=== PATIENT | male | born 1945 | race Caucasian/White ===

== ENCOUNTER 2016-04-09 13:39 | Inpatient (IN) | payer OTHER ==
[~2016-04-09] VITALS: Ht 175.3 cm; Wt 64.5 kg
[2016-04-09 15:14] LABS: BASO % 0.2 %; BASO ABS # 0.02 K/uL (0-0.2); COMPLETE YES; EOS % 0.8 %; HEMATOCRIT 44.1 % (42-52); IG% 0.2 %; LYMPH % 14.8 %; LYMPH ABS # 1.81 K/uL (1.2-3.4); MEAN CELL VOLUME 88.6 fL (80-100); MEAN CORPUSCULAR HEMOGLOBIN 28.3 pg (25-34); MEAN PLATELET VOLUME 9.6 fL (7.4-10.4); MONO % 9.2 %; NEUT % 74.8 %; PLATELET COUNT 229 K/uL (130-400); RED BLOOD COUNT 4.98 M/uL (4.7-6.1); WHITE BLOOD COUNT 12.21 K/uL (4.8-10.8)
[2016-04-09 15:32] LABS: BLOOD UREA NITROGEN 11 mg/dl (7-18); BUN/CREATININE RATIO 21.5 (10-20); CALCIUM 8.5 mg/dl (8.5-10.1); CARBON DIOXIDE 34 mmol/L (21-32); CHLORIDE 102 mmol/L (98-107); CREATININE 0.52 mg/dl (0.60-1.40); GLUCOSE 93 mg/dl (70-99); POTASSIUM 4.1 mmol/L (3.5-5.1); SODIUM 141 mmol/L (136-145)
[2016-04-09] MEDS ORDERED: ADVIN50/60 INH (15:39)
[2016-04-09] MEDS ORDERED: SPRIN/30 INH (15:39)
[2016-04-09] MEDS ORDERED: PRVHFAIN PO (15:39)
--- NOTE | 2016-04-09 15:45 | DIAGNOSTIC IMAGING REPORT ---
SINGLE VIEW PELVIS; 2 VIEWS RIGHT HIP CLINICAL HISTORY: Right hip pain. Fall. FINDINGS: An AP pelvic radiograph with AP and frog-leg views of the right hip are obtained. No prior studies are available for comparison at the time of dictation. The skeletal structures are osteopenic. There is no radiographic evidence of fracture in the hips or bony pelvis. Mild arthritic change and joint space narrowing is present in the hips bilaterally. Mild lumbosacral spondylosis is partially imaged. The sacroiliac joints are grossly normal. Soft tissue contusion/edema is present in the right upper thigh. There is mild atherosclerotic calcification of the femoral arteries. There is a nonobstructed abdominal bowel gas pattern. IMPRESSION: 1. There is no radiographic evidence of fracture involving the hips or bony pelvis. 2. Soft tissue contusion is present in the right upper thigh. 3. Osteopenia and mild degenerative change as above. Electronically signed by: Harjinder Yuen M.D. 04/09/2016 3:43 PM
[2016-04-09] MEDS ORDERED: OPTIRAY 320 IV PRN (16:15)
--- NOTE | 2016-04-09 16:21 | DIAGNOSTIC IMAGING REPORT ---
CHEST ONE VIEW PORTABLE CLINICAL HISTORY: Trauma. Hypoxia. COMPARISON STUDY: 10/02/2014 FINDINGS: The heart is normal in size. There is no lobar consolidation. There is slight prominence of the pulmonary vasculature interstitium. An element of mild pulmonary vascular congestion/fluid overload cannot be excluded. There are no pleural effusions.[ IMPRESSION: Subtle vascular and interstitial prominence. This may indicate mild pulmonary congestion/fluid overload. There is no focal pulmonary consolidation Electronically signed by: Segundo Murdock M.D. 04/09/2016 4:20 PM
[2016-04-09 16:25] LABS: ALKALINE PHOSPHATASE 102 U/L (45-117); ALT/SGPT < 6 U/L (12-78); AST/SGOT 17 U/L (15-37)
[2016-04-09] MEDS ORDERED: ALBUTEROL 0.083% NEBU SOLN 3 ML VIAL INH STA (16:39)
[2016-04-09] MEDS ORDERED: METHYLPREDNISOLONE 125 MG VIAL IV STA (17:30)
--- NOTE | 2016-04-09 17:31 | DIAGNOSTIC IMAGING REPORT ---
CHEST CTA for PULMONARY ARTERIES CT DOSE: HISTORY: Chest pain dyspnea TECHNIQUE: Multiaxial CT images of the chest were performed following the intravenous administration of contrast to evaluate the pulmonary arteries. Maximal intensity projection images were also obtained. COMPARISON STUDY: None. FINDINGS: There is a normal caliber thoracic aorta with no evidence for dissection. There is no evidence for pulmonary embolus. No pleural effusions. No pneumothorax. The liver and spleen are unremarkable. No mediastinal or hilar lymphadenopathy. The central airways are patent. The lungs are clear. Mild peribronchial thickening is noted throughout both hemithoraces. There are no focal infiltrates. IMPRESSION: 1. Study is negative for pulmonary embolus. 2. Mild peribronchial thickening throughout both hemithoraces consistent with a nonspecific lower airway inflammatory process and/or bronchitis Electronically signed by: Guerrero Edward M.D. 04/09/2016 4:56 PM
[2016-04-09] MEDS ORDERED: LEVAQUIN 750MG / 150ML D5W IV STA (17:37)
--- NOTE | 2016-04-09 17:46 | DIAGNOSTIC IMAGING REPORT ---
CT right hip RIGHT HIP-LOWER EXTREMITY WITH CLINICAL HISTORY: Trauma pain TECHNIQUE: Transaxial acquisition. Multiple axial reformatted images COMPARISON STUDY: None FINDINGS: Soft tissue contusion and hematoma lateral to the right hip and upper femur. The hematoma measures approximately 6.5 x 3.5 cm. Osseous structures demonstrate degenerative change. No acute bony abnormality is appreciated. The femur is intact. Soft tissue contusion changes along the lateral aspect of the thigh. No additional major hematoma is identified. IMPRESSION: 1. Degenerative change right hip with no well-defined acute bony abnormality. 2. Extensive soft tissue contusion lateral aspect right thigh extending from right hip level 2 right knee level. 3. Acute hematoma lateral to the right hip measuring 6.5 x 3.5 cm. Electronically signed by: Guerrero Edward M.D. 04/09/2016 5:44 PM
--- NOTE | 2016-04-09 18:35 | EMERGENCY ROOM VISIT NOTE ---
History Report prepared by Scribe: Laurel Elliott Under the Supervision of: Dr. Ildefonso Woods D.O. First contact with patient: 13:58 Chief Complaint: FALL Stated Complaint: FALL,BRUISE R HIP History of Present Illness The patient is a 71 year old male who presents to the Emergency Room with complaints of worsening right hip pain. He reports 4 days ago he fell on ice and landed on his right hip. Yesterday, the hip started hurting and he rates his current pain as a 4/10. He has been able to walk but movement does worsen his discomfort. He does not take any daily blood thinners. He has a history of COPD and notes he is still a 2 pack a day smoker, but denies any chest pain or shortness of breath. He does have a cough which is productive but this is not new per the patient. The patient denies hitting his head during the fall or losing consciousness. He also denies any headache, change in vision, fevers, nausea, vomiting, diarrhea, pain with urination, and melena. Source of History: patient Onset: yesterday Position: other (right hip) Symptom Intensity: 4/10 Timing: worsening Modifying Factors (Worsening): movement Associated Symptoms: No LOC, No SOB, No chest pain, No diarrhea, No fevers, No headache, No melena, No nausea, No urinary symptoms, No vomiting Review of Systems See HPI for pertinent positives & negatives. A total of 10 systems reviewed and were otherwise negative. Past Medical & Surgical Medical Problems: (1) COPD (chronic obstructive pulmonary disease) Social History Smoking Status: Current Every Day Smoker Alcohol Use: occasionally Drug Use: none Marital Status: Housing Status: lives with family Occupation Status: retired Current/Historical Medications Scheduled Albuterol (Ventolin Hfa), 2 PUFF PO DIRECTED Fluticasone Prop/Salmeterol (Advair Diskus 500/50 60 Dose), 1 PUFF INH BID Tiotropium [place] (Spiriva Handihaler), 1 CAP INH DAILY Allergies Coded Allergies: No Known Allergies (Unverified , NONE, 04/09/16) Physical Exam Vital Signs Date Time Temp Pulse Resp B/P Pulse Ox O2 Delivery O2 Flow Rate FiO2 04/09/16 18:20 100 25 136/85 89 Nasal Cannula 2.0 04/09/16 16:57 96 19 140/91 98 Nebulizer 7.0 04/09/16 16:26 104 19 139/92 91 Nasal Cannula 2.0 04/09/16 15:24 102 17 148/93 93 Nasal Cannula 3.0 04/09/16 14:03 102 04/09/16 13:51 36.8 116 20 148/90 84 Room Air Physical Exam GENERAL: Patient is alert, sitting up in bed, disheveled, chronically ill- appearing, on nasal canula, well nourished, no distress, non-toxic EYE EXAM: normal conjunctiva OROPHARYNX: no exudate, no erythema, lips, buccal mucosa, and tongue normal and mucous membranes are moist NECK: supple, no nuchal rigidity, no adenopathy, non-tender LUNGS: Lung sounds are course bilaterally. Normal chest wall mechanics HEART: Tachycardic heart rate, no murmurs, S1 normal and S2 normal ABDOMEN: abdomen soft, non-tender, normo-active bowel sounds, no masses, no rebound or guarding. BACK: Back is symmetrical on inspection and there is no deformity, no midline tenderness, no CVA tenderness. SKIN: no rashes and no bruising UPPER EXTREMITIES: upper extremities are grossly normal. LOWER EXTREMITIES: Right lower extremity with bruise over hip tracking through groin, acute tenderness to palpation, skin is intact, mild bruising over knee without tenderness and full ROM of knee and ankle, full active and passive ROM of left hip, knee and ankle. NEURO EXAM: Normal sensorium, cranial nerves II-XII grossly intact, normal speech, no gross weakness of arms, no gross weakness of legs. Medical Decision & Procedures ER Provider Diagnostic Interpretation: These CT scans were reviewed and interpreted by the radiologist and reviewed by myself. CHEST CTA for PULMONARY ARTERIES IMPRESSION: 1. Study is negative for pulmonary embolus. 2. Mild peribronchial thickening throughout both hemithoraces consistent with a nonspecific lower airway inflammatory process and/or bronchitis Electronically signed by: Guerrero Edward M.D. 04/09/2016 4:[address] right hip RIGHT HIP-LOWER EXTREMITY WITH IMPRESSION: 1. Degenerative change right hip with no well-defined acute bony abnormality. 2. Extensive soft tissue contusion lateral aspect right thigh extending from right hip level 2 right knee level. 3. Acute hematoma lateral to the right hip measuring 6.5 x 3.5 cm. Electronically signed by: Guerrero Edward M.D. 04/09/2016 5:44 PM These X-Rays were reviewed and interpreted by myself and the radiologist. CHEST ONE VIEW PORTABLE IMPRESSION: Subtle vascular and interstitial prominence. This may indicate mild pulmonary congestion/fluid overload. There is no focal pulmonary consolidation Electronically signed by: Segundo Murdock M.D. 04/09/2016 4:20 PM SINGLE VIEW PELVIS; 2 VIEWS RIGHT HIP IMPRESSION: 1. There is no radiographic evidence of fracture involving the hips or bony pelvis. 2. Soft tissue contusion is present in the right upper thigh. 3. Osteopenia and mild degenerative change as above. Electronically signed by: Harjinder Yuen M.D. 04/09/2016 3:43 PM Laboratory Results 04/09/16 15:00 Red Blood Count 4.98, Mean Corpuscular Volume 88.6, Mean Corpuscular Hemoglobin 28.3, Mean Corpuscular Hemoglobin Concent 32.0, Mean Platelet Volume 9.6, Neutrophils (%) (Auto) 74.8, Lymphocytes (%) (Auto) 14.8, Monocytes (%) (Auto) 9.2, Eosinophils (%) (Auto) 0.8, Basophils (%) (Auto) 0.2, Neutrophils # (Auto) 9.13, Lymphocytes # (Auto) 1.81, Monocytes # (Auto) 1.12, Eosinophils # (Auto) 0.10, Basophils # (Auto) 0.02 04/09/16 15:00 Test 04/09/16 15:00 04/09/16 18:27 04/09/16 18:28 White Blood Count 12.21 K/uL (4.8-10.8) Red Blood Count 4.98 M/uL (4.7-6.1) Hemoglobin 14.1 g/dL (14.0-18.0) Hematocrit 44.1 % (42-52) Mean Corpuscular Volume 88.6 fL (80-100) Mean Corpuscular Hemoglobin 28.3 pg (25-34) Mean Corpuscular Hemoglobin Concent 32.0 g/dl (32-36) Platelet Count 229 K/uL (130-400) Mean Platelet Volume 9.6 fL (7.4-10.4) Neutrophils (%) (Auto) 74.8 % Lymphocytes (%) (Auto) 14.8 % Monocytes (%) (Auto) 9.2 % Eosinophils (%) (Auto) 0.8 % Basophils (%) (Auto) 0.2 % Neutrophils # (Auto) 9.13 K/uL (1.4-6.5) Lymphocytes # (Auto) 1.81 K/uL (1.2-3.4) Monocytes # (Auto) 1.12 K/uL (0.11-0.59) Eosinophils # (Auto) 0.10 K/uL (0-0.5) Basophils # (Auto) 0.02 K/uL (0-0.2) RDW Standard Deviation 48.2 fL (36.4-46.3) RDW Coefficient of Variation 14.9 % (11.5-14.5) Immature Granulocyte % (Auto) 0.2 % Immature Granulocyte # (Auto) 0.03 K/uL (0.00-0.02) Anion Gap 5.0 mmol/L (3-11) Est Creatinine Clear Calc Drug Dose 120.6 ml/min Estimated GFR () 125.2 Estimated GFR (Non- 108.0 BUN/Creatinine Ratio 21.5 (10-20) Calcium Level 8.5 mg/dl (8.5-10.1) Total Bilirubin 0.5 mg/dl (0.2-1) Direct Bilirubin 0.1 mg/dl (0-0.2) Aspartate Amino Transf (AST/SGOT) 17 U/L (15-37) Alanine Aminotransferase (ALT/SGPT) < 6 U/L (12-78) Alkaline Phosphatase 102 U/L (45-117) Troponin I < 0.015 ng/ml (0-0.045) Total Protein 6.8 gm/dl (6.4-8.2) Albumin 3.0 gm/dl (3.4-5.0) Laboratory results per my review. Medications Administered Medications (Trade) Dose Ordered Sig/Maggie Route Start Time Stop Time Status Last Admin Dose Admin Albuterol Sulfate (Ventolin 0.083% 2.5MG/3ML Neb) 2.5 mg NOW STAT INH 04/09/16 16:39 04/09/16 16:40 DC 04/09/16 16:56 2.5 MG Methylprednisolone Sodium Succinate (Solu-Medrol IV) 125 mg NOW STAT IV 04/09/16 17:30 04/09/16 17:32 DC 04/09/16 18:19 125 MG ED Course ED COURSE: Vital signs were reviewed and showed the patient is tachycardic and hypoxic. The patients medical record was reviewed The above diagnostic studies were performed and reviewed. ED treatments and interventions as stated above. 1402: The patient was evaluated in room C3. A complete history and physical examination was performed. 1639: Albuterol Sulfate 2.5 mg INH. 1710: Upon reevaluation, the patient is finishing an Albuterol treatment and has just come back from CT scan. I discussed my findings with the patient and he understands and agrees with the treatment plan. 1730: Solu-Medrol 125 mg IV. 173: Levaquin 750 mg IV. 175: I discussed the patient's case with Dr. Steven, [facility] Hospitalist. The patient will be further evaluated. Based on the patients age, coexisting illnesses, exam and lab findings the decision to treat as an inpatient was made. The patient remained stable while under my care. The patient will be evaluated for further management. Medical Decision Differential diagnoses include major intracranial, cervical, spinal, thoracic, abdominal, pelvic and neurologic injury. Fracture, contusion, sprain, strain, laceration, abrasions included as well. Patient is a 71-year-old male who presents the ER following a fall several days ago for right hip pain. Upon presentation he is found to be hypoxic in the mid 80s on room air. He is given albuterol treatments along with steroids. He doesn't history of COPD. He denies any shortness of breath. He has a cough but they note that this is not worsened. He was given a dose of Levaquin along with the above treatments. X-rays of the hip were unremarkable. His hemoglobin was stable. He was slightly tachycardic which I favor secondary to his hypoxia. X-rays of his chest showed no focal infiltrate. CT PE was performed and was negative for PE but does show bronchitis. Patient was updated at bedside and discussed case with internal medicine for admission as this patient is hypoxic at 83-85% on room air requiring 4 L nasal cannula which is new for him. Consults Time Called: 173 Consulting Physician: Dr. Steven, [facility] Hospitalist Returned Call: [phone] I discussed the patient's case with Dr. Steven, [facility] Hospitalist. The patient will be further evaluated. Impression Primary Impression: Bronchitis Additional Impressions: Hypoxia, COPD exacerbation, Contusion of hip Scribe Attestation The scribe's documentation has been prepared under my direction and personally reviewed by me in its entirety. I confirm that the note above accurately reflects all work, treatment, procedures, and medical decision making performed by me. Departure Information Dispostion Being Evaluated By Hospitalist Referrals Maxwell Solares M.D. (PCP) Patient Instructions A Signature Page, My [facility]
[2016-04-09 18:49] LABS: VEN BLD GAS O2 SATURATION 87.7 %; VEN BLOOD GAS BASE EXCESS 5.2 mmol/L
[2016-04-09] MEDS ORDERED: ALBUT/IPRATROP 3MG/0.5MG NEB 3 ML VIAL INH PRN (19:00)
[2016-04-09] MEDS ORDERED: ONDANSETRON INJ 2 MG/ML 2 ML VIAL IV PRN (19:00)
[2016-04-09] MEDS ORDERED: ENOXAPARIN 40 MG/0.4 ML SYR SQ SCH (19:00)
[2016-04-09] MEDS ORDERED: ALBUTEROL HFA 8 GM INHALER INH PRN (19:00)
--- NOTE | 2016-04-09 19:07 | History and Physical ---
History & Physical Date & Time of Service: Apr 09, 2016 at 18:51 Chief Complaint: Fall,Bruise R Hip Primary Care Physician: Maxwell Solares M.D. History of Present Illness Source: patient, partner This is a 71 yo m with known COPD that is presenting to us after a fall on ice he had on . The patient states that he was walking outside and fell onto his right hip when walking on ice. Since then a large bruise arose on the right hip and there is pain with movement. the patient was concerned that the pain was indicative of a fracture and wished to have it evaluated. Pain is an ache, 4/10 only on right hip without radiation. Aggravated with walking or touching the right hip. Denies any numbness/ tingling in LE, fever chest pain. While he was assessed in the ED it was noted that his O2 sat was 84%. He had improvement of his O2 sat on 2-3 L of oxygen. When discussing his O2 sat both him and his states that he typically "runs in the 80s". He is followed by Dr Ventura regularly with the last visit in January. When looking at vitals taken during outpt visits the O2 sat and pulse were similar in nature to what was noted on the monitor. He states that he actually has no SOBOE or SOB at rest and is able to do errands around the house without dyspnea. This has not changed recently. He is currently on Spriva, Advair and Albuterol. He rarely uses albuterol. He did have a cold 2 weeks ago but currently symptom free. He continues to smoke but states he has count down his PPD in half. Has tried to quit completely. No other health problems or surgeries noted. Past Medical/Surgical History COPD Family History Patient reports no known family medical history. Social History Smoking Status: Current Every Day Smoker Smokeless Tobacco Use: No Alcohol Use: none Drug Use: none Marital Status: Housing status: lives with family Occupational Status: retired Allergies Coded Allergies: No Known Allergies (Unverified , NONE, 04/09/16) Home Medications Scheduled Albuterol (Ventolin Hfa), 2 PUFF PO DIRECTED Fluticasone Prop/Salmeterol (Advair Diskus 500/50 60 Dose), 1 PUFF INH BID Tiotropium [place] (Spiriva Handihaler), 1 CAP INH DAILY Review of Systems Constitutional: No fever Eyes: No worsening of vision ENT: No hearing loss Respiratory: + cough (BL), + wheezing (BL), No dyspnea at rest, No dyspnea on exertion, No shortness of breath Cardiovascular: No chest pain Abdomen: No constipation, No diarrhea, No nausea, No pain, No vomiting Musculoskeletal: + joint pain (right hip pain) Neurologic: No numbness/tingling, No weakness Psychiatric: No depression symptoms Endocrine: No fatigue Integumentary: No rash Physical Exam Vital Signs Date Time Temp Pulse Resp B/P Pulse Ox O2 Delivery O2 Flow Rate FiO2 04/09/16 18:36 94 04/09/16 18:20 100 25 136/85 89 Nasal Cannula 2.0 04/09/16 16:57 96 19 140/91 98 Nebulizer 7.0 04/09/16 16:26 104 19 139/92 91 Nasal Cannula 2.0 04/09/16 15:24 102 17 148/93 93 Nasal Cannula 3.0 04/09/16 14:03 102 04/09/16 13:51 36.8 116 20 148/90 84 Room Air General Appearance: WD/WN, no apparent distress Head: normocephalic, atraumatic Eyes: normal inspection ENT: normal ENT inspection Neck: supple Respiratory/Chest: + decreased breath sounds, + rhonchi, + wheezing (diffuse ) , + pertinent finding (poor air movement, ) Cardiovascular: no murmur, normal peripheral pulses, + tachycardia Abdomen/GI: normal bowel sounds, non tender, soft Back: normal inspection, no CVA tenderness Extremities/Musculoskelatal: normal inspection, no calf tenderness, no pedal edema Neurologic/Psych: alert, normal mood/affect, oriented x 3 Skin: normal color, warm/dry, no rash Lymphatic: no adenopathy Diagnostics Laboratory Results Results Past 24 Hours Test 04/09/16 15:00 04/09/16 18:24 04/09/16 18:38 Range/Units White Blood Count 12.21 4.8-10.8 K/uL Red Blood Count 4.98 4.7-6.1 M/uL Hemoglobin 14.1 14.0-18.0 g/dL Hematocrit 44.1 42-52 % Mean Corpuscular Volume 88.6 80-100 fL Mean Corpuscular Hemoglobin 28.3 25-34 pg Mean Corpuscular Hemoglobin Concent 32.0 32-36 g/dl Platelet Count 229 130-400 K/uL Mean Platelet Volume 9.6 7.4-10.4 fL Neutrophils (%) (Auto) 74.8 % Lymphocytes (%) (Auto) 14.8 % Monocytes (%) (Auto) 9.2 % Eosinophils (%) (Auto) 0.8 % Basophils (%) (Auto) 0.2 % Neutrophils # (Auto) 9.13 1.4-6.5 K/uL Lymphocytes # (Auto) 1.81 1.2-3.4 K/uL Monocytes # (Auto) 1.12 0.11-0.59 K/uL Eosinophils # (Auto) 0.10 0-0.5 K/uL Basophils # (Auto) 0.02 0-0.2 K/uL RDW Standard Deviation 48.2 36.4-46.3 fL RDW Coefficient of Variation 14.9 11.5-14.5 % Immature Granulocyte % (Auto) 0.2 % Immature Granulocyte # (Auto) 0.03 0.00-0.02 K/uL Sodium Level 141 136-145 mmol/L Potassium Level 4.1 3.5-5.1 mmol/L Chloride Level 102 98-107 mmol/L Carbon Dioxide Level 34 21-32 mmol/L Anion Gap 5.0 3-11 mmol/L Blood Urea Nitrogen 11 7-18 mg/dl Creatinine 0.52 0.60-1.40 mg/dl Est Creatinine Clear Calc Drug Dose 120.6 ml/min Estimated GFR () 125.2 Estimated GFR (Non- 108.0 BUN/Creatinine Ratio 21.5 10-20 Random Glucose 93 70-99 mg/dl Calcium Level 8.5 8.5-10.1 mg/dl Total Bilirubin 0.5 0.2-1 mg/dl Direct Bilirubin 0.1 0-0.2 mg/dl Aspartate Amino Transf (AST/SGOT) 17 15-37 U/L Alanine Aminotransferase (ALT/SGPT) < 6 12-78 U/L Alkaline Phosphatase 102 45-117 U/L Troponin I < 0.015 0-0.045 ng/ml Total Protein 6.8 6.4-8.2 gm/dl Albumin 3.0 3.4-5.0 gm/dl Venous Blood pH 7.34 7.36-7.41 Venous Blood Partial Pressure CO2 62 38.0-50.0 mmHg Venous Blood Partial Pressure O2 57 mmHg Venous Blood HCO3 33 mmol/L Venous Blood Oxygen Saturation 87.7 % Venous Blood Base Excess 5.2 mmol/L Diagnostic Radiology CHEST CTA for PULMONARY ARTERIES CT DOSE: HISTORY: Chest pain dyspnea TECHNIQUE: Multiaxial CT images of the chest were performed following the intravenous administration of contrast to evaluate the pulmonary arteries. Maximal intensity projection images were also obtained. COMPARISON STUDY: None. FINDINGS: There is a normal caliber thoracic aorta with no evidence for dissection. There is no evidence for pulmonary embolus. No pleural effusions. No pneumothorax. The liver and spleen are unremarkable. No mediastinal or hilar lymphadenopathy. The central airways are patent. The lungs are clear. Mild peribronchial thickening is noted throughout both hemithoraces. There are no focal infiltrates. IMPRESSION: 1. Study is negative for pulmonary embolus. 2. Mild peribronchial thickening throughout both hemithoraces consistent with a nonspecific lower airway inflammatory process and/or bronchitis [~ rep ct add3]] CT right hip RIGHT HIP-LOWER EXTREMITY WITH CLINICAL HISTORY: Trauma pain TECHNIQUE: Transaxial acquisition. Multiple axial reformatted images COMPARISON STUDY: None FINDINGS: Soft tissue contusion and hematoma lateral to the right hip and upper femur. The hematoma measures approximately 6.5 x 3.5 cm. Osseous structures demonstrate degenerative change. No acute bony abnormality is appreciated. The femur is intact. Soft tissue contusion changes along the lateral aspect of the thigh. No additional major hematoma is identified. IMPRESSION: 1. Degenerative change right hip with no well-defined acute bony abnormality. 2. Extensive soft tissue contusion lateral aspect right thigh extending from right hip level 2 right knee level. 3. Acute hematoma lateral to the right hip measuring 6.5 x 3.5 cm. CHEST ONE VIEW PORTABLE CLINICAL HISTORY: Trauma. Hypoxia. COMPARISON STUDY: 10/02/2014 FINDINGS: The heart is normal in size. There is no lobar consolidation. There is slight prominence of the pulmonary vasculature interstitium. An element of mild pulmonary vascular congestion/fluid overload cannot be excluded. There are no pleural effusions.[ IMPRESSION: Subtle vascular and interstitial prominence. This may indicate mild pulmonary congestion/fluid overload. There is no focal pulmonary consolidation [~ rep ct add3]] SINGLE VIEW PELVIS; 2 VIEWS RIGHT HIP CLINICAL HISTORY: Right hip pain. Fall. FINDINGS: An AP pelvic radiograph with AP and frog-leg views of the right hip are obtained. No prior studies are available for comparison at the time of dictation. The skeletal structures are osteopenic. There is no radiographic evidence of fracture in the hips or bony pelvis. Mild arthritic change and joint space narrowing is present in the hips bilaterally. Mild lumbosacral spondylosis is partially imaged. The sacroiliac joints are grossly normal. Soft tissue contusion/edema is present in the right upper thigh. There is mild atherosclerotic calcification of the femoral arteries. There is a nonobstructed abdominal bowel gas pattern. IMPRESSION: 1. There is no radiographic evidence of fracture involving the hips or bony pelvis. 2. Soft tissue contusion is present in the right upper thigh. 3. Osteopenia and mild degenerative change as above. Impression Assessment and Plan This is a 71 yo m with a history of COPD suffering from a contusion of the right hip after a fall and hypoxia Hypoxia - O2 via NC - 2 step in the am - continue home meds - Solu medrol 60 mg q 6 h - start to wean in am - duoneb - procalcitonin- pending - no abx at this time and will defer bld cx - VBG pending - influenza pending Right hip contusion/ hematoma - Fall precautions - Tylenol for pain control Elevated PTT - lupus anticoag - consider full anticoag w/u for VWF if negative DVT Prophylaxis - SCD because of elevated PTT FULL CODE Level of Care Med/Surg Resuscitation Status FULL RESUSCITATION VTE Prophylaxis VTE Risk Assessment Done? Y/N: Yes Risk Level: Low Given or contraindicated: Enoxaparin (Lovenox)SQ Social Service Consult None Apply Note Total Time: Critical Care 30 - 74 minutes Additional Copies To Maxwell Solares M.D.; Chuckie Steven M.D. Assessment and Plan ATTENDING ADDENDUM: I have seen and examined this patient, have directed their medical care, and agree with the H&P as noted above.
[2016-04-09] MEDS ORDERED: IV FLUIDS COMPLETED PRN (19:15)
[2016-04-09 19:22] LABS: PARTIAL THROMBOPLASTIN RATIO 2.4; PROTHROMBIN TIME (PATIENT) 10.4 SECONDS (9.0-12.0)
[2016-04-09 20:41] VITALS: BP 130/78; PULSE 103; TEMP 36.5; O2SAT 91; Ht 175.3 cm; Wt 64.5 kg
[2016-04-09 20:45] VITALS: O2SAT 91
[2016-04-09 21:37] VITALS: PULSE 107; O2SAT 90
[2016-04-09] MEDS: ALBUT/IPRATROP 3MG/0.5MG NEB 3 ML VIAL INH SCH (21:37)
[2016-04-09] MEDS ORDERED: INFLUENZA VIRUS QUAD VACCINE 0.5 ML SYR IM. ONE (21:45)
[2016-04-09] MEDS ORDERED: PNEUMOCOCCAL POLYSACCHARIDES 25 MCG/0.5 ML VIAL/SYR IM. ONE (21:45)
[2016-04-09] MEDS ORDERED: INFLUENZA ADMINISTRATION CHARGE ONE (21:45)
[2016-04-09] MEDS ORDERED: PNEUMOCOCCAL ADMINISTRATION CHARGE ONE (21:45)
[2016-04-09] MEDS: FLUTICASONE/SALMETEROL (ADVAIR) 500/50 INH 14 PUFF INH SCH (22:28)
[2016-04-09 23:29] VITALS: BP 128/72; PULSE 62; TEMP 36.6; O2SAT 96
[2016-04-09] MEDS: METHYLPREDNISOLONE IV 60 MG in SYRINGE 0 ML IV SCH (23:47)
[2016-04-10] VITALS (9 sets, daily range): BP systolic 104–114; BP diastolic 63–67; PULSE 100–115; TEMP 36.6; O2SAT 79–94
[2016-04-10] MEDS: METHYLPREDNISOLONE IV 60 MG in SYRINGE 0 ML IV SCH ×2 (05:47→11:17)
[2016-04-10 06:16] LABS: HEMATOCRIT 44.2 % (42-52); MEAN CELL VOLUME 89.3 fL (80-100); MEAN CORPUSCULAR HEMOGLOBIN 28.1 pg (25-34); MEAN CORPUSCULAR HGB CONC 31.4 g/dl (32-36); MEAN PLATELET VOLUME 10.2 fL (7.4-10.4); PLATELET COUNT 257 K/uL (130-400); RED BLOOD COUNT 4.95 M/uL (4.7-6.1); WHITE BLOOD COUNT 10.63 K/uL (4.8-10.8)
[2016-04-10 06:44] LABS: BUN/CREATININE RATIO 21.4 (10-20); CALCIUM 8.4 mg/dl (8.5-10.1); CREATININE 0.57 mg/dl (0.60-1.40); POTASSIUM 4.6 mmol/L (3.5-5.1)
[2016-04-10] MEDS: ALBUT/IPRATROP 3MG/0.5MG NEB 3 ML VIAL INH SCH ×4 (07:32→20:00)
[2016-04-10] MEDS: TIOTROPIUM BROMIDE 5 PUFF/90 MCG INH INH SCH (08:50)
[2016-04-10] MEDS: FLUTICASONE/SALMETEROL (ADVAIR) 500/50 INH 14 PUFF INH SCH ×2 (08:50→20:48)
[2016-04-10] MEDS: GUAIFENESIN 600 MG TABCR PO SCH ×2 (14:14→20:48)
[2016-04-10] MEDS: DOXYCYCLINE HYCLATE 100 MG CAP PO SCH ×2 (14:14→20:48)
[2016-04-10] MEDS: METHYLPREDNISOLONE IV 40 MG in SYRINGE 0 ML IV SCH (18:15)
[2016-04-11] VITALS (8 sets, daily range): BP systolic 122–134; BP diastolic 72–76; PULSE 107–118; TEMP 36.5–36.8; O2SAT 92–98
--- NOTE | 2016-04-11 01:07 | Progress Note ---
Subjective Date of Service: late entry for visit on Apr 10, 2016. Subjective Pt evaluation today including: conversation w/ patient, conversation w/ family ( at bedside), physical exam, chart review, lab review, review of studies ( cxr, hip x-rays, CTA chest), review of inpatient medication list Pain: right hip - mild PO Intake: normal Voiding: no voiding problems patient reports chronic cough at home, but worse in the last week after he had contracted a "cold" he produces sputum on a daily, regular basis at home but this, too, has been worse over the last week he has dyspnea on exertion with walking to his mailbox at home denies any orthopnea continues to smoke at home; has been smoking since age 16 Problem List Medical Problems: (1) Bronchitis Status: Acute (2) Contusion of hip Status: Acute (3) COPD exacerbation Status: Acute (4) Hypoxia Status: Acute Review of Systems Constitutional: No fever Respiratory: + cough, + dyspnea on exertion, + sputum, + wheezing Cardiac: No chest pain, No orthopnea Abdomen: No pain Objective Vital Signs Date Time Temp Pulse Resp B/P Pulse Ox O2 Delivery O2 Flow Rate FiO2 04/11/16 00:27 36.5 109 20 133/72 97 3.0 04/10/16 20:30 94 Nasal Cannula 3.0 04/10/16 15:45 36.6 104 18 114/67 91 Nasal Cannula 3.0 04/10/16 15:16 Nasal Cannula 3.0 04/10/16 11:30 92 Nasal Cannula 3.0 04/10/16 11:23 115 16 88 Nasal Cannula 2.0 04/10/16 11:20 88 Nasal Cannula 2.0 04/10/16 11:19 79 Room Air 04/10/16 08:50 Nasal Cannula 2.0 04/10/16 07:32 111 16 90 Nasal Cannula 2.0 04/10/16 06:57 36.6 109 18 104/63 91 Nasal Cannula 2.0 Physical Exam General Appearance: no apparent distress ENT: pharynx normal Neck: no JVD Respiratory/Chest: no respiratory distress, no accessory muscle use, + crackles (right base only), + rhonchi (occasional), + wheezing (extensive) Cardiovascular: no gallop, no murmur, + tachycardia Abdomen: normal bowel sounds, non tender, soft, no organomegaly Extremities: no pedal edema, + pertinent finding (severe ecchymoses of right thigh and lateral hip; hematoma also present; ecchymoses tracks down the right leg towards the knee; full passive ROM of the right hip present. ) Comments: barrel chest appearance Laboratory Results Last 24 Hours Test 04/10/16 05:34 White Blood Count 10.63 K/uL Red Blood Count 4.95 M/uL Hemoglobin 13.9 g/dL Hematocrit 44.2 % Mean Corpuscular Volume 89.3 fL Mean Corpuscular Hemoglobin 28.1 pg Mean Corpuscular Hemoglobin Concent 31.4 g/dl RDW Standard Deviation 48.4 fL RDW Coefficient of Variation 15.0 % Platelet Count 257 K/uL Mean Platelet Volume 10.2 fL Sodium Level 142 mmol/L Potassium Level 4.6 mmol/L Chloride Level 101 mmol/L Carbon Dioxide Level 33 mmol/L Anion Gap 8.0 mmol/L Blood Urea Nitrogen 12 mg/dl Creatinine 0.57 mg/dl Est Creatinine Clear Calc Drug Dose 110.0 ml/min Estimated GFR () 120.6 Estimated GFR (Non- 104.0 BUN/Creatinine Ratio 21.4 Random Glucose 123 mg/dl Calcium Level 8.4 mg/dl Hepatitis C Antibody Screen NEG Assessment and Plan 71yo male: 1. acute hypoxic/hypercarbic resp failure - 2nd to COPD exacerbation. 2. COPD w/ exacerbation - keep IV steroids but reduce to 40mg q6h. duonebs scheduled continue outpatient inhalers incentive spirometry mucinex BID add doxy 100 BID x 7 days send sputum cx wean o2 as tolerated, but suspicious he may need continuous o2 for home at discharge 3. tobacco dependence - counseled to quit 4. right hip contusion with hematoma - 2nd to trauma; x-rays neg for fracture cold compresses x 48 hours, then heat after that 5. DVT proph - scds for now In my clinical judgment this beneficiary meets acute admission criteria, established by CMS, that includes being hospitalized through two midnights. Repeat labs in AM due to right leg hematoma, etc Continued [facility] stay due to: multiple IV medications needed Discharge planning: home
[2016-04-11] MEDS: METHYLPREDNISOLONE IV 40 MG in SYRINGE 0 ML IV SCH ×4 (01:20→20:16)
[2016-04-11 06:12] LABS: MEAN CELL VOLUME 88.7 fL (80-100); MEAN CORPUSCULAR HEMOGLOBIN 28.1 pg (25-34); MEAN CORPUSCULAR HGB CONC 31.7 g/dl (32-36); MEAN PLATELET VOLUME 9.9 fL (7.4-10.4); PLATELET COUNT 280 K/uL (130-400); RED BLOOD COUNT 4.62 M/uL (4.7-6.1); WHITE BLOOD COUNT 18.28 K/uL (4.8-10.8)
[2016-04-11 06:26] LABS: PARTIAL THROMBOPLASTIN RATIO 1.7
[2016-04-11 06:42] LABS: BUN/CREATININE RATIO 32.3 (10-20); CALCIUM 8.6 mg/dl (8.5-10.1); CREATININE 0.52 mg/dl (0.60-1.40); POTASSIUM 4.8 mmol/L (3.5-5.1)
[2016-04-11] MEDS: ALBUT/IPRATROP 3MG/0.5MG NEB 3 ML VIAL INH SCH ×4 (07:20→20:27)
[2016-04-11] MEDS: FLUTICASONE/SALMETEROL (ADVAIR) 500/50 INH 14 PUFF INH SCH ×2 (07:56→20:17)
[2016-04-11] MEDS: TIOTROPIUM BROMIDE 5 PUFF/90 MCG INH INH SCH (07:56)
[2016-04-11] MEDS: GUAIFENESIN 600 MG TABCR PO SCH ×2 (07:56→20:16)
[2016-04-11] MEDS: DOXYCYCLINE HYCLATE 100 MG CAP PO SCH ×2 (07:56→20:17)
[2016-04-11 10:07] LABS: PARTIAL THROMBOPLASTIN RATIO 1.5; PROTHROMBIN TIME (PATIENT) 10.6 SECONDS (9.0-12.0)
--- NOTE | 2016-04-11 11:12 | Medical Student: [facility] ---
Med Student Progress Note Date of Service Apr 11, 2016. Subjective Pt evaluation today including: conversation w/ patient, physical exam, chart review, lab review Pain: 2/10 pain in left leg/hip Voiding: no voiding problems Patient reports feeling well today. He denies any breathing problems and says his pain is mild today. He placed ice on the hematoma last night which helped with the swelling but he reports it aggravated the pain somewhat. Review of Systems Constitutional: No fever, No weight loss Respiratory: + cough, + dyspnea on exertion (short of breath after walking to and from mailbox), + sputum, + wheezing Musculoskeletal: + see HPI Objective Vital Signs Date Time Temp Pulse Resp B/P Pulse Ox O2 Delivery O2 Flow Rate FiO2 04/11/16 08:05 36.6 107 16 134/76 92 Nasal Cannula 3.0 04/11/16 08:00 Nasal Cannula 3.0 04/11/16 07:20 115 16 95 Nasal Cannula 3.0 04/11/16 00:27 36.5 109 20 133/72 97 3.0 04/11/16 00:15 Nasal Cannula 3.0 04/10/16 20:30 94 Nasal Cannula 3.0 04/10/16 20:00 100 16 92 Nasal Cannula 3.0 04/10/16 15:45 36.6 104 18 114/67 91 Nasal Cannula 3.0 04/10/16 15:16 Nasal Cannula 3.0 04/10/16 11:30 92 Nasal Cannula 3.0 04/10/16 11:23 115 16 88 Nasal Cannula 2.0 04/10/16 11:20 88 Nasal Cannula 2.0 04/10/16 11:19 79 Room Air Physical Exam General Appearance: WD/WN, no apparent distress Neck: supple, no JVD Respiratory/Chest: chest non-tender, no accessory muscle use, + wheezing (end expiratory wheezes), + pertinent finding (hyperinflated lungs, barrel chest) Cardiovascular: regular rate, rhythm, no edema, no gallop, no JVD, no murmur, + normal peripheral pulses Abdomen: normal bowel sounds, non tender, soft Extremities: no pedal edema Neurologic/Psychiatric: alert, oriented x 3 Skin: normal color, warm/dry, no rash, + pertinent finding (large hematoma on lateral aspect of right hip and leg, tracking to the knee) Laboratory Results Last 24 Hours Test 04/11/16 05:48 04/11/16 09:50 White Blood Count 18.28 K/uL Red Blood Count 4.62 M/uL Hemoglobin 13.0 g/dL Hematocrit 41.0 % Mean Corpuscular Volume 88.7 fL Mean Corpuscular Hemoglobin 28.1 pg Mean Corpuscular Hemoglobin Concent 31.7 g/dl RDW Standard Deviation 47.9 fL RDW Coefficient of Variation 14.9 % Platelet Count 280 K/uL Mean Platelet Volume 9.9 fL Activated Partial Thromboplast Time 43.1 SECONDS 39.6 SECONDS Partial Thromboplastin Ratio 1.7 1.5 Sodium Level 141 mmol/L Potassium Level 4.8 mmol/L Chloride Level 102 mmol/L Carbon Dioxide Level 33 mmol/L Anion Gap 6.0 mmol/L Blood Urea Nitrogen 17 mg/dl Creatinine 0.52 mg/dl Est Creatinine Clear Calc Drug Dose 120.6 ml/min Estimated GFR () 125.2 Estimated GFR (Non- 108.0 BUN/Creatinine Ratio 32.3 Random Glucose 125 mg/dl Calcium Level 8.6 mg/dl Prothrombin Time 10.6 SECONDS Prothromb Time International Ratio 1.0 Medications Current Inpatient Medications Medications (Trade) Dose Ordered Sig/Maggie Route Start Time Stop Time Status Last Admin Dose Admin Ioversol (Optiray 320) 125 ml UD PRN IV 04/09/16 16:15 04/13/16 16:14 Acetaminophen (Tylenol Tab) 650 mg Q4H PRN PO 04/09/16 19:00 05/09/16 18:59 Ondansetron HCl (Zofran Inj) 4 mg Q6H PRN IV 04/09/16 19:00 05/09/16 18:59 Albuterol (Ventolin Hfa Inhaler) 2 puffs Q6 PRN INH 04/09/16 19:00 05/09/16 18:59 Salmeterol Xinafoate/ Fluticasone (Advair Diskus 500/50 Inh) 1 puff BID INH 04/09/16 20:26 05/09/16 20:59 04/11/16 07:56 1 PUFF Tiotropium [place] (Spiriva Handihaler Inhaler) 1 puff DAILY INH 04/10/16 08:00 05/10/16 08:59 04/11/16 07:56 1 PUFF Albuterol/ Ipratropium (Duoneb) 3 ml QIDR INH 04/09/16 20:00 05/09/16 19:59 04/11/16 07:20 3 ML Albuterol/ Ipratropium (Duoneb) 3 ml Q2H PRN INH 04/09/16 19:00 05/09/16 18:59 Miscellaneous 1 ea 1 ea PRN PRN N/A 04/09/16 19:15 04/09/17 19:14 Methylprednisolone Sodium Succinate/ Syringe (Solu-Medrol IV/ Syringe) 0.64 ml @ 1.5 mls/min Q6@0000,0600,1200,1800 IV 04/10/16 18:00 05/10/16 17:59 04/11/16 06:17 1.5 MLS/MIN Doxycycline Hyclate (Vibramycin Cap) 100 mg BID PO 04/10/16 12:30 04/17/16 12:29 04/11/16 07:56 100 MG Guaifenesin (Mucinex Contr Rel Tab) 1,200 mg Q12 PO 04/10/16 12:30 05/10/16 12:29 04/11/16 07:56 1,200 MG Assessment and Plan Assessment and Plan: Acute on chronic hypoxic respiratory failure: O2 sats are stable in the high 90s on 3 L nasal cannula and he is not currently having any difficulty breathing. Patient was counseled to quite smoking and advised that he may have to go home on oxygen given his chronic hypoxia and COPD. Continue current home regimen for COPD treatment including advair, spiriva, and duoneb. Steroid course will continue for treatment of acute exacerbation. Acute bronchitis: Treating with 7 days of doxycycline 100 mg po bid and guaifenesin for symptomatic relief. Right hip contusion/ hematoma: Pain is better today and swelling continues to improve. Continue ice pack treatments and tylenol prn for pain. DVT Prophylaxis: SCD because of elevated PTT FULL CODE Continued [facility] stay due to: multiple IV medications needed Discharge planning: home
[2016-04-11 11:30] LABS: MIXING STUDY INTERPRET APTT APTT CORRECTED; PAT:SHPL 37 PTT 32.6 SECONDS; PAT:SHPL IMMED PTT 31.8 SECONDS; PTT CALC 37 13.4; PTT CALC IMM 10.9; SHPL 37 PTT 27.3 SECONDS; SHPL IMMED PTT 27.5 SECONDS
[2016-04-11] MEDS ORDERED: PHYTONADIONE 5 MG TAB PO ONE (13:05)
[2016-04-11] MEDS ORDERED: ASCORBIC ACID 500 MG TAB PO ONE (13:40)
[2016-04-11] MEDS: ACETAMINOPHEN 325 MG TAB PO PRN (16:59)
[2016-04-12] VITALS (10 sets, daily range): BP systolic 128–130; BP diastolic 74–79; PULSE 70–116; TEMP 36.6–36.9; O2SAT 9–97
[2016-04-12] MEDS: METHYLPREDNISOLONE IV 40 MG in SYRINGE 0 ML IV SCH ×2 (04:14→15:53)
[2016-04-12 06:07] LABS: HEMATOCRIT 39.8 % (42-52); MEAN CELL VOLUME 88.4 fL (80-100); MEAN CORPUSCULAR HGB CONC 31.7 g/dl (32-36); PLATELET COUNT 258 K/uL (130-400); WHITE BLOOD COUNT 15.88 K/uL (4.8-10.8)
[2016-04-12 06:48] LABS: BUN/CREATININE RATIO 34.9 (10-20); CALCIUM 8.5 mg/dl (8.5-10.1); CREATININE 0.48 mg/dl (0.60-1.40)
[2016-04-12] MEDS: ALBUT/IPRATROP 3MG/0.5MG NEB 3 ML VIAL INH SCH ×4 (07:02→19:07)
--- NOTE | 2016-04-12 07:42 | Progress Note ---
Subjective Date of Service: late entry for visit on Apr 11, 2016. Subjective Pt evaluation today including: conversation w/ patient, conversation w/ family ( at bedside), physical exam, chart review, lab review Pain: right hip only but improving PO Intake: normal Voiding: no voiding problems Pt states cough/wheeze/congestion/sob all improved. Using ice on right hip contusion/hematoma - also improved. Anxious to go home. Reports easy bruising at home x 1 year. Admits to poor vegetable intake at home. Problem List Medical Problems: (1) Bronchitis Status: Acute (2) Contusion of hip Status: Acute (3) COPD exacerbation Status: Acute (4) Hypoxia Status: Acute Review of Systems Constitutional: No fever Respiratory: + cough, + dyspnea on exertion, + shortness of breath, + sputum, + wheezing Cardiac: No chest pain, No orthopnea Abdomen: No diarrhea, No pain Objective Vital Signs Date Time Temp Pulse Resp B/P Pulse Ox O2 Delivery O2 Flow Rate FiO2 04/11/16 20:28 108 16 98 Nasal Cannula 2.0 04/11/16 20:00 Nasal Cannula 3.0 04/11/16 16:00 Nasal Cannula 3.0 04/11/16 15:59 108 16 94 Nasal Cannula 2.0 04/11/16 15:07 36.8 107 16 122/74 92 Nasal Cannula 2.0 04/11/16 14:43 95 04/11/16 11:10 118 16 95 Nasal Cannula 3.0 04/11/16 08:05 36.6 107 16 134/76 92 Nasal Cannula 3.0 04/11/16 08:00 Nasal Cannula 3.0 04/11/16 07:20 115 16 95 Nasal Cannula 3.0 04/11/16 00:27 36.5 109 20 133/72 97 3.0 04/11/16 00:15 Nasal Cannula 3.0 Physical Exam General Appearance: no apparent distress ENT: pharynx normal Neck: no JVD Respiratory/Chest: no respiratory distress, no accessory muscle use, + decreased breath sounds, + crackles (right base), + wheezing (extensive, b/l ) Cardiovascular: no gallop, no murmur, + tachycardia Abdomen: normal bowel sounds, non tender, soft, no organomegaly Extremities: no pedal edema, + pertinent finding (extensive bruising and hematoma over right lateral hip as well as extension of ecchymoses from the groin all the way down to the right knee; ecchymoses also extends medially to the inner thigh on right) Laboratory Results Last 24 Hours Test 04/11/16 05:48 04/11/16 09:50 White Blood Count 18.28 K/uL Red Blood Count 4.62 M/uL Hemoglobin 13.0 g/dL Hematocrit 41.0 % Mean Corpuscular Volume 88.7 fL Mean Corpuscular Hemoglobin 28.1 pg Mean Corpuscular Hemoglobin Concent 31.7 g/dl RDW Standard Deviation 47.9 fL RDW Coefficient of Variation 14.9 % Platelet Count 280 K/uL Mean Platelet Volume 9.9 fL Activated Partial Thromboplast Time 43.1 SECONDS 39.6 SECONDS Partial Thromboplastin Ratio 1.7 1.5 Sodium Level 141 mmol/L Potassium Level 4.8 mmol/L Chloride Level 102 mmol/L Carbon Dioxide Level 33 mmol/L Anion Gap 6.0 mmol/L Blood Urea Nitrogen 17 mg/dl Creatinine 0.52 mg/dl Est Creatinine Clear Calc Drug Dose 120.6 ml/min Estimated GFR () 125.2 Estimated GFR (Non- 108.0 BUN/Creatinine Ratio 32.3 Random Glucose 125 mg/dl Calcium Level 8.6 mg/dl Prothrombin Time 10.6 SECONDS Prothromb Time International Ratio 1.0 PT Mixing Studies Interpretation PTT Mixing Studies Interpretation APTT CORRECTED Assessment and Plan 71yo male: 1. acute hypoxic/hypercarbic resp failure - 2nd to COPD exacerbation. IMPROVED. 2. COPD w/ exacerbation - IMPROVING slowly. keep IV steroids but reduce to 40mg q8h. duonebs scheduled continue outpatient inhalers incentive spirometry mucinex BID doxy 100 BID x 7 days; today is day #2. sputum cx pending wean o2 as tolerated, but suspicious he may need continuous o2 for home at discharge 3. tobacco dependence - counseled to quit 4. right hip contusion with hematoma - 2nd to trauma; x-rays neg for fracture cold compresses x 1 more day, then heat after that 5. DVT proph - scds for now 6. abnormal PTT - mixing study performed and he corrected suggesting factor deficiency. Could have vitamin K def. plan - daily oral vitamin K supplement. repeat PTT in 1-2 days. 7. easy bruising - could be due to #6; also could be scurvy. add vitamin C 500mg daily. updated today Continued [facility] stay due to: multiple IV medications needed Discharge planning: home
[2016-04-12] MEDS: FLUTICASONE/SALMETEROL (ADVAIR) 500/50 INH 14 PUFF INH SCH ×2 (07:58→20:35)
[2016-04-12] MEDS: TIOTROPIUM BROMIDE 5 PUFF/90 MCG INH INH SCH (07:59)
[2016-04-12] MEDS: ASCORBIC ACID 500 MG TAB PO SCH (07:59)
[2016-04-12] MEDS: DOXYCYCLINE HYCLATE 100 MG CAP PO SCH ×2 (07:59→20:35)
[2016-04-12] MEDS: PHYTONADIONE 5 MG TAB PO SCH (08:00)
[2016-04-12] MEDS: GUAIFENESIN 600 MG TABCR PO SCH ×2 (08:00→20:37)
--- NOTE | 2016-04-12 08:56 | Medical Student: [facility] ---
Med Student Progress Note Date of Service Apr 12, 2016. Subjective Pt evaluation today including: conversation w/ patient, physical exam, chart review, lab review Pain: 2/10 in leg PO Intake: normal diet Voiding: no voiding problems No acute events overnight. Patient says that the nurse had taken off his oxygen about ten minutes prior to our conversation. He reports that his breathing has been good over the past day and does not endorse coughing or SOB. He reports that his pain today is about the same as yesterday and that his swelling continues to improve with application of ice. He did report some "catching" of the leg while walking following his ice application. Otherwise he has no complaints of other symptoms. Review of Systems Constitutional: No chills, No fever Respiratory: + see HPI Objective Vital Signs Date Time Temp Pulse Resp B/P Pulse Ox O2 Delivery O2 Flow Rate FiO2 04/12/16 08:14 36.6 87 16 128/79 93 2.0 04/12/16 08:01 91 Room Air 04/12/16 07:02 87 16 92 Nasal Cannula 2.0 04/12/16 00:44 97 Nasal Cannula 2.0 04/12/16 00:18 36.9 70 18 130/76 97 Nasal Cannula 2.0 04/11/16 20:28 108 16 98 Nasal Cannula 2.0 04/11/16 20:00 Nasal Cannula 3.0 04/11/16 16:00 Nasal Cannula 3.0 04/11/16 15:59 108 16 94 Nasal Cannula 2.0 04/11/16 15:07 36.8 107 16 122/74 92 Nasal Cannula 2.0 04/11/16 14:43 95 04/11/16 11:10 118 16 95 Nasal Cannula 3.0 Physical Exam General Appearance: WD/WN, + thin Eyes: bilateral eyes PERRL, bilateral eyes normal inspection ENT: pharynx normal Neck: supple, no adenopathy, no JVD Respiratory/Chest: chest non-tender, no respiratory distress, no accessory muscle use, + rhonchi (scattered), + wheezing (diffuse) Cardiovascular: regular rate, rhythm, no gallop, no murmur Abdomen: normal bowel sounds, non tender, soft, no organomegaly Extremities: no pedal edema Neurologic/Psychiatric: alert, oriented x 3 Skin: normal color, warm/dry, no rash, + pertinent finding (large ecchymosis and extending from superior and lateral thigh/hip to knee with pooling below the knee. large hematoma present on superolateral aspect of thigh) Laboratory Results Last 24 Hours Test 04/11/16 09:50 04/12/16 05:42 Prothrombin Time 10.6 SECONDS Prothromb Time International Ratio 1.0 Activated Partial Thromboplast Time 39.6 SECONDS Partial Thromboplastin Ratio 1.5 PT Mixing Studies Interpretation PTT Mixing Studies Interpretation APTT CORRECTED White Blood Count 15.88 K/uL Red Blood Count 4.50 M/uL Hemoglobin 12.6 g/dL Hematocrit 39.8 % Mean Corpuscular Volume 88.4 fL Mean Corpuscular Hemoglobin 28.0 pg Mean Corpuscular Hemoglobin Concent 31.7 g/dl RDW Standard Deviation 48.9 fL RDW Coefficient of Variation 15.1 % Platelet Count 258 K/uL Mean Platelet Volume 10.0 fL Sodium Level 140 mmol/L Potassium Level 5.0 mmol/L Chloride Level 102 mmol/L Carbon Dioxide Level 34 mmol/L Anion Gap 4.0 mmol/L Blood Urea Nitrogen 17 mg/dl Creatinine 0.48 mg/dl Est Creatinine Clear Calc Drug Dose 130.6 ml/min Estimated GFR () 129.4 Estimated GFR (Non- 111.7 BUN/Creatinine Ratio 34.9 Random Glucose 116 mg/dl Calcium Level 8.5 mg/dl Medications Current Inpatient Medications Medications (Trade) Dose Ordered Sig/Maggie Route Start Time Stop Time Status Last Admin Dose Admin Ioversol (Optiray 320) 125 ml UD PRN IV 04/09/16 16:15 04/13/16 16:14 Acetaminophen (Tylenol Tab) 650 mg Q4H PRN PO 04/09/16 19:00 05/09/16 18:59 04/11/16 16:59 650 MG Ondansetron HCl (Zofran Inj) 4 mg Q6H PRN IV 04/09/16 19:00 05/09/16 18:59 Albuterol (Ventolin Hfa Inhaler) 2 puffs Q6 PRN INH 04/09/16 19:00 05/09/16 18:59 Salmeterol Xinafoate/ Fluticasone (Advair Diskus 500/50 Inh) 1 puff BID INH 04/09/16 20:26 05/09/16 20:59 04/12/16 07:58 1 PUFF Tiotropium [place] (Spiriva Handihaler Inhaler) 1 puff DAILY INH 04/10/16 08:00 05/10/16 08:59 04/12/16 07:59 1 PUFF Albuterol/ Ipratropium (Duoneb) 3 ml QIDR INH 04/09/16 20:00 05/09/16 19:59 04/12/16 07:02 3 ML Albuterol/ Ipratropium (Duoneb) 3 ml Q2H PRN INH 04/09/16 19:00 05/09/16 18:59 Miscellaneous (Iv Fluids Completed) 1 ea PRN PRN N/A 04/09/16 19:15 04/09/17 19:14 Doxycycline Hyclate (Vibramycin Cap) 100 mg BID PO 04/10/16 12:30 04/17/16 12:29 04/12/16 07:59 100 MG Guaifenesin (Mucinex Contr Rel Tab) 1,200 mg Q12 PO 04/10/16 12:30 05/10/16 12:29 04/12/16 08:00 1,200 MG Phytonadione 5 mg 5 mg DAILY PO 04/12/16 08:00 05/12/16 07:59 04/12/16 08:00 5 MG Methylprednisolone Sodium Succinate/ Syringe (Solu-Medrol IV/ Syringe) 0.64 ml @ 1.5 mls/min Q8H IV 04/11/16 20:00 05/11/16 19:59 04/12/16 04:14 1.5 MLS/MIN Ascorbic Acid (Vitamin C Tab) 500 mg QAM PO 04/12/16 08:00 05/12/16 07:59 04/12/16 07:59 500 MG Assessment and Plan Assessment and Plan: 71 yo male with a history of COPD who presented to the hospital with an acute COPD exacerbation 2/2 URI and large hematoma following mechanical fall on ice. Acute on chronic hypoxic respiratory failure: Patient was weaned off O2 over the course of the past day. Sats in the mid 90s on 2L and most recently at 91% on room air which is acceptable given his COPD. Would recommend trial of room air and monitor O2 sats to maintain in the 88-92% range. Patient was counseled to quite smoking and advised that he may have to go home on oxygen given his chronic hypoxia and COPD. Continue current home regimen for COPD treatment including advair, spiriva, and duoneb. Continue to taper steroids gradually as lungs improve. Acute bronchitis: Treating with 7 days of doxycycline 100 mg po bid and guaifenesin for symptomatic relief. Right hip contusion/ hematoma: Pain is mild but unchanged today and swelling continues to improve. Continue ice pack treatments and tylenol prn for pain. Clotting factor deficiency: Suspected vitamin K deficiency due to late age of onset and poor consumption of vegetables. Began vitamin K supplementation at 5 mg daily and will recheck PTT periodically for resolution of elevation. DVT Prophylaxis: Regular ambulation and SCD as needed. Continued [facility] stay due to: multiple IV medications needed Discharge planning: home
--- NOTE | 2016-04-12 22:57 | Progress Note ---
Subjective Date of Service: Apr 12, 2016. Subjective Pt evaluation today including: conversation w/ patient, physical exam, chart review, lab review, review of inpatient medication list Pain: right hip but improving PO Intake: normal Voiding: no voiding problems patient feels MUCH better -- less cough, sputum just about resolved, less sob/ dyspnea, less wheezing o2 has been turned off Problem List Medical Problems: (1) Bronchitis Status: Acute (2) Contusion of hip Status: Acute (3) COPD exacerbation Status: Acute (4) Hypoxia Status: Acute Review of Systems Constitutional: No fever Cardiac: No chest pain, No orthopnea Abdomen: No pain Objective Vital Signs Date Time Temp Pulse Resp B/P Pulse Ox O2 Delivery O2 Flow Rate FiO2 04/12/16 19:07 92 16 94 Room Air 04/12/16 18:13 36.6 116 18 128/74 92 Room Air 04/12/16 16:00 92 Room Air 04/12/16 15:23 99 16 94 Room Air 04/12/16 11:11 103 16 94 Room Air 04/12/16 08:14 36.6 87 16 128/79 93 2.0 04/12/16 08:01 91 Room Air 04/12/16 08:00 Room Air 04/12/16 07:02 87 16 92 Nasal Cannula 2.0 04/12/16 00:44 97 Nasal Cannula 2.0 04/12/16 00:18 36.9 70 18 130/76 97 Nasal Cannula 2.0 Physical Exam General Appearance: no apparent distress ENT: pharynx normal Neck: no JVD Respiratory/Chest: no respiratory distress, no accessory muscle use, + decreased breath sounds (bases), + crackles (right base), + wheezing (b/l - modestly improved) Cardiovascular: no gallop, no murmur, + tachycardia Abdomen: normal bowel sounds, non tender, soft, no organomegaly Extremities: + pertinent finding (significant hematoma over right lateral hip; extensive ecchymoses from the right groin to the right knee; extends medially over the thigh and laterally) Laboratory Results Last 24 Hours Test 04/12/16 05:42 White Blood Count 15.88 K/uL Red Blood Count 4.50 M/uL Hemoglobin 12.6 g/dL Hematocrit 39.8 % Mean Corpuscular Volume 88.4 fL Mean Corpuscular Hemoglobin 28.0 pg Mean Corpuscular Hemoglobin Concent 31.7 g/dl RDW Standard Deviation 48.9 fL RDW Coefficient of Variation 15.1 % Platelet Count 258 K/uL Mean Platelet Volume 10.0 fL Sodium Level 140 mmol/L Potassium Level 5.0 mmol/L Chloride Level 102 mmol/L Carbon Dioxide Level 34 mmol/L Anion Gap 4.0 mmol/L Blood Urea Nitrogen 17 mg/dl Creatinine 0.48 mg/dl Est Creatinine Clear Calc Drug Dose 130.6 ml/min Estimated GFR () 129.4 Estimated GFR (Non- 111.7 BUN/Creatinine Ratio 34.9 Random Glucose 116 mg/dl Calcium Level 8.5 mg/dl Assessment and Plan 71yo male: 1. acute hypoxic/hypercarbic resp failure - 2nd to COPD exacerbation - resolved. O2 sats at rest are >88%. we walked the patient in the hallway and had him return. upon return O2 sats were 86% in room air and remained <88 for at least 2-3 minutes before recovering. 2. COPD w/ exacerbation 2nd to moraxella catarrhalis - improving. Reduce solumedrol to 40mg q12h. continue outpatient inhalers, nebs, incentive jaquelin, mucinex, doxycycline (day # 3/7) 3. tobacco dependence - counseled to quit 4. right hip contusion with hematoma - 2nd to trauma; x-rays neg for fracture cold compresses today, then change to heat may recommend outpatient therapy for the hematoma due to risk of calcification 5. DVT proph - scds for now 6. abnormal PTT - mixing study performed and he corrected suggesting factor deficiency. Could have vitamin K def. plan - continue the daily oral vitamin K supplement. repeat PTT tomorrow AM 7. easy bruising - could be due to #6; also could be scurvy. continue vitamin C 500mg daily. anticipate d/c tomorrow Continued [facility] stay due to: multiple IV medications needed Discharge planning: home
[2016-04-13] VITALS (7 sets, daily range): BP systolic 128–154; BP diastolic 72–88; PULSE 60–118; TEMP 36.5–36.7; O2SAT 91–96
[2016-04-13] MEDS: METHYLPREDNISOLONE IV 40 MG in SYRINGE 0 ML IV SCH ×2 (03:24→15:52)
[2016-04-13 06:37] LABS: PARTIAL THROMBOPLASTIN RATIO 1.5
[2016-04-13] MEDS: ALBUT/IPRATROP 3MG/0.5MG NEB 3 ML VIAL INH SCH ×3 (07:09→19:40)
[2016-04-13] MEDS: FLUTICASONE/SALMETEROL (ADVAIR) 500/50 INH 14 PUFF INH SCH ×2 (08:07→20:16)
[2016-04-13] MEDS: ACETAMINOPHEN 325 MG TAB PO PRN (08:07)
[2016-04-13] MEDS: PHYTONADIONE 5 MG TAB PO SCH (08:09)
[2016-04-13] MEDS: TIOTROPIUM BROMIDE 5 PUFF/90 MCG INH INH SCH (08:09)
[2016-04-13] MEDS: ASCORBIC ACID 500 MG TAB PO SCH (08:10)
[2016-04-13] MEDS: DOXYCYCLINE HYCLATE 100 MG CAP PO SCH ×2 (08:10→20:16)
[2016-04-13] MEDS: GUAIFENESIN 600 MG TABCR PO SCH ×2 (08:11→21:41)
--- NOTE | 2016-04-13 20:31 | Progress Note ---
Subjective Date of Service: Apr 13, 2016. Subjective Pt evaluation today including: conversation w/ patient, conversation w/ family ( at bedside), physical exam, chart review, lab review, conversation w/ sales consultant insurance (heme/onc, orthopedics), review of inpatient medication list Pain: right hip - minimal, and improving PO Intake: normal Voiding: no voiding problems cough, congestion, wheezing, dyspnea -- again all improved right hip swelling also improved anxious to go home denies any bleeding from any location continues to use ice on right hip Problem List Medical Problems: (1) Bronchitis Status: Acute (2) Contusion of hip Status: Acute (3) COPD exacerbation Status: Acute (4) Hypoxia Status: Acute Review of Systems Constitutional: No fever Respiratory: + cough, No sputum Cardiac: No chest pain, No orthopnea Objective Vital Signs Date Time Temp Pulse Resp B/P Pulse Ox O2 Delivery O2 Flow Rate FiO2 04/13/16 19:40 118 16 92 Room Air 04/13/16 16:00 Room Air 04/13/16 15:28 36.6 117 18 154/77 92 Room Air 04/13/16 11:21 92 16 94 Room Air 04/13/16 10:36 Room Air 04/13/16 08:13 36.5 99 16 131/88 91 Room Air 04/13/16 07:09 92 16 94 Room Air 04/13/16 00:12 36.5 60 16 128/72 96 Room Air 04/13/16 00:00 Room Air Physical Exam General Appearance: no apparent distress ENT: pharynx normal Neck: no JVD Respiratory/Chest: no respiratory distress, no accessory muscle use, + rales ( bases), + wheezing (still extensive) Cardiovascular: no gallop, no murmur, + tachycardia Abdomen: normal bowel sounds, non tender, soft, no organomegaly Extremities: + pedal edema (right ankle only), + pertinent finding (still w/ extensive hematoma over right lateral hip but NOT any worse than previous exam; evolving ecchymoses over right thigh with extension down to the right knee) Laboratory Results Last 24 Hours Test 04/13/16 05:36 04/13/16 18:50 Activated Partial Thromboplast Time 40.0 SECONDS Partial Thromboplastin Ratio 1.5 Fibrinogen 290 mg/dl Assessment and Plan 71yo male: 1. acute hypoxic/hypercarbic resp failure - 2nd to COPD exacerbation - resolved. 04/12/16 - we walked the patient in the hallway and had him return to his room where his O2 sats were 86% in RA. Did not recover to >88% for 2-3 minutes. 2. COPD w/ exacerbation 2nd to moraxella catarrhalis - improving albeit slowly. Cont solumedrol 40mg q12h. continue outpatient inhalers, nebs, incentive jaquelin, mucinex, doxycycline (day # 4) 3. tobacco dependence - counseled to quit 4. right hip contusion with hematoma - 2nd to trauma; x-rays neg for fracture change to heat tomorrow spoke with ortho by phone - nothing to do at this time except cold and/or heat 5. DVT proph - scds for now 6. abnormal PTT - mixing study performed and he corrected suggesting factor deficiency. spoke with Dr. Dukes who recommends checking vWF, factor 8 level, factor 9 level, fibrinogen, lupus anticoagulant he will consult in AM 7. easy bruising - could be due to #6; also could be scurvy. continue vitamin C 500mg daily. hopefully d/c this weekend Continued [facility] stay due to: multiple IV medications needed Discharge planning: home
[2016-04-14] VITALS (8 sets, daily range): BP systolic 123–154; BP diastolic 74–91; PULSE 93–120; TEMP 36.4–36.7; O2SAT 91–99
[2016-04-14] MEDS: METHYLPREDNISOLONE IV 40 MG in SYRINGE 0 ML IV SCH ×2 (04:10→17:17)
[2016-04-14] MEDS: ALBUT/IPRATROP 3MG/0.5MG NEB 3 ML VIAL INH SCH ×4 (07:15→19:32)
[2016-04-14] MEDS: GUAIFENESIN 600 MG TABCR PO SCH ×2 (07:52→21:42)
[2016-04-14] MEDS: ASCORBIC ACID 500 MG TAB PO SCH (07:53)
[2016-04-14] MEDS: DOXYCYCLINE HYCLATE 100 MG CAP PO SCH ×2 (07:53→21:41)
[2016-04-14] MEDS: TIOTROPIUM BROMIDE 5 PUFF/90 MCG INH INH SCH (07:54)
[2016-04-14] MEDS: FLUTICASONE/SALMETEROL (ADVAIR) 500/50 INH 14 PUFF INH SCH ×2 (07:54→20:00)
[2016-04-14] MEDS: POLYETHYLENE (MIRALAX) 17 GM PACK PO SCH (08:41)
--- NOTE | 2016-04-14 10:11 | DIAGNOSTIC IMAGING REPORT ---
CT OF THE PELVIS WITHOUT CONTRAST CT DOSE: 522.42 mGy.cm CLINICAL HISTORY: Recent fall. Evaluate for pelvic hematoma. TECHNIQUE: Axial images of the pelvis were obtained without IV contrast. Sagittal and coronal reconstructions were viewed. COMPARISON STUDY: CT of the right hip April 09, 2016. FINDINGS: There has been interval development of a large right rectus sheath hematoma that measures approximately 10 x 9 x [address] of April 09, 2016. There are additional smaller intramuscular hematomas within the right aspect of the anterior abdominal wall. These involve the oblique musculature. There has also been interval development of moderate extraperitoneal hemorrhage within the pelvis, including hemorrhage within the space of Retzius. No intraperitoneal hemorrhage is identified. No acute pelvic or hip fractures identified. A hematoma overlying the fascia of the lateral right thigh is unchanged since prior CT. This measures 6.6 x 3.1 cm. IMPRESSION: 1. Interval development of a large right rectus sheath hematoma with smaller additional right abdominal wall hematomas since CT of April 09, 2016. 2. Interval development of moderate extraperitoneal hemorrhage within the lower abdomen and pelvis which likely reflects extension from the rectus sheath hematoma. 3. No change in the hematoma overlying the fascia of the lateral right thigh since prior exam. 4. No acute pelvic or hip fracture. Electronically signed by: Isaac Qiu M.D. 04/14/2016 10:09 AM Dictated Date/Time: 04/14/2016 9:58 AM
--- NOTE | 2016-04-14 10:12 | DIAGNOSTIC IMAGING REPORT ---
CT OF THE RIGHT HIP WITHOUT CONTRAST CLINICAL HISTORY: Recent fall. Evaluate hematoma. TECHNIQUE: Axial images of the right hip were obtained without IV contrast. Sagittal and coronal reconstructions were viewed. COMPARISON STUDY: CT of the right hip April 09, 2016. FINDINGS: A large right rectus sheath hematoma with associated extraperitoneal hemorrhage is better depicted on the pelvic CT. A 6.3 x 3.6 cm hematoma overlying the fascia of the lateral right thigh is unchanged since prior CT. No acute right hip fracture is present. IMPRESSION: 1. Interval development of a large right rectus sheath hematoma and moderate extraperitoneal hemorrhage since prior exam. 2. No change in the hematoma of the lateral right thigh since prior exam. 3. No acute fracture or dislocation of the right hip. Electronically signed by: Isaac Qiu M.D. 04/14/2016 10:10 AM Dictated Date/Time: 04/14/2016 10:09 AM
[2016-04-14 11:10] LABS: HEMATOCRIT 34.3 % (42-52); MEAN CELL VOLUME 84.5 fL (80-100); MEAN CORPUSCULAR HEMOGLOBIN 27.1 pg (25-34); MEAN CORPUSCULAR HGB CONC 32.1 g/dl (32-36); PLATELET COUNT 241 K/uL (130-400); RED BLOOD COUNT 4.06 M/uL (4.7-6.1); WHITE BLOOD COUNT 14.48 K/uL (4.8-10.8)
--- NOTE | 2016-04-14 11:40 | Oncology Consultation ---
Oncology/Heme Consultation Date of Consultation: Apr 14, 2016. Attending Physician: Osmani Chan MD Reason for Consultation: Prolonged PTT History of Present Illness Mr. De La Torre is a delightful 71-year-old gentleman with a history of COPD. He presented on April 09 with exacerbation of bronchitis and underlying COPD. He reviewed at that time of admission having fallen on the ice a few days before and had sustained a very large bruise affecting his right hip and down his thigh. During evaluation at that time a pro time was normal PTT was prolonged. Lupus anticoagulants screen was done and is reported as positive. We are asked to visit with him today because of the prolonged PTT. He states he's never had a bleeding issue in the past. He doesn't recall any major surgeries before. There is no bleeding issues within the family that he is aware of. Past Medical/Surgical History Medical Problems: (1) Bronchitis Status: Acute (2) Contusion of hip Status: Acute (3) COPD exacerbation Status: Acute (4) Hypoxia Status: Acute Family History Patient reports no known family medical history. No blood dyscrasias or coagulation issues that he is aware of Social History Negative for alcohol. He is a smoker Smoking Status: Current Every Day Smoker Smokeless Tobacco Use: No Alcohol Use: none Drug Use: none Marital Status: Housing Status: lives with family Occupation Status: retired Allergies Coded Allergies: No Known Allergies (Unverified , NONE, 04/09/16) Home Medications Scheduled Albuterol (Ventolin Hfa), 2 PUFF PO DIRECTED Fluticasone Prop/Salmeterol (Advair Diskus 500/50 60 Dose), 1 PUFF INH BID Tiotropium [place] (Spiriva Handihaler), 1 CAP INH DAILY Current Inpatient Medications Current Inpatient Medications Medications (Trade) Dose Ordered Sig/Maggie Route Start Time Stop Time Status Last Admin Dose Admin Acetaminophen (Tylenol Tab) 650 mg Q4H PRN PO 04/09/16 19:00 05/09/16 18:59 04/13/16 08:07 650 MG Ondansetron HCl (Zofran Inj) 4 mg Q6H PRN IV 04/09/16 19:00 05/09/16 18:59 Albuterol (Ventolin Hfa Inhaler) 2 puffs Q6 PRN INH 04/09/16 19:00 05/09/16 18:59 Salmeterol Xinafoate/ Fluticasone (Advair Diskus 500/50 Inh) 1 puff BID INH 04/09/16 20:26 05/09/16 20:59 04/14/16 07:54 1 PUFF Tiotropium [place] (Spiriva Handihaler Inhaler) 1 puff DAILY INH 04/10/16 08:00 05/10/16 08:59 04/14/16 07:54 1 PUFF Albuterol/ Ipratropium (Duoneb) 3 ml QIDR INH 04/09/16 20:00 05/09/16 19:59 04/14/16 07:15 3 ML Albuterol/ Ipratropium (Duoneb) 3 ml Q2H PRN INH 04/09/16 19:00 05/09/16 18:59 Miscellaneous (Iv Fluids Completed) 1 ea PRN PRN N/A 04/09/16 19:15 04/09/17 19:14 Doxycycline Hyclate (Vibramycin Cap) 100 mg BID PO 04/10/16 12:30 04/17/16 12:29 04/14/16 07:53 100 MG Guaifenesin (Mucinex Contr Rel Tab) 1,200 mg Q12 PO 04/10/16 12:30 05/10/16 12:29 04/14/16 07:52 1,200 MG Ascorbic Acid 500 mg 500 mg QAM PO 04/12/16 08:00 05/12/16 07:59 04/14/16 07:53 500 MG Methylprednisolone Sodium Succinate/ Syringe (Solu-Medrol IV/ Syringe) 0.64 ml @ 1.5 mls/min Q12H IV 04/12/16 16:00 05/12/16 15:59 04/14/16 04:10 1.5 MLS/MIN Polyethylene (Miralax Powder Packet) 17 gm DAILY PO 04/14/16 08:00 05/14/16 07:59 04/14/16 08:41 17 GM Review of Systems Constitutional: Negative for weight loss, night sweats, or fever Eyes: Negative for event change of vision ENT: Negative for epistaxis, nasal discharge, sore throat, or deafness Cardiovascular: Negative for chest pain, palpitations, dizziness, diaphoresis Respiratory: Negative for new shortness of breath,hemoptysis, or purulent cough Gastrointestinal: Negative for diarrhea, hematemesis, melena, nausea, vomiting , or dyspepsia Integumentary (skin): Negative for rash or jaundice discoloration Genitourinary: Negative for urinary frequency, hematuria, or dysuria Neurological: Negative for weakness, seizure activity, headache, or dizziness Lymphatic/Hematologic: Negative for petechiae, bleeding or new adenopathy Musculoskeletal: Negative for new joint or back pain. He complains of pain just below the umbilicus degree on the right side that is new Allergic/Immunologic: Negative for unusual rash or pruritis. Physical Exam Date Time Temp Pulse Resp B/P Pulse Ox O2 Delivery O2 Flow Rate FiO2 04/14/16 08:05 Room Air 04/14/16 07:56 36.4 102 20 154/91 91 04/14/16 07:15 97 16 92 Room Air 04/14/16 00:00 Room Air 04/13/16 23:42 36.7 99 18 130/81 93 Room Air 04/13/16 19:40 118 16 92 Room Air 04/13/16 16:00 Room Air 04/13/16 15:28 36.6 117 18 154/77 92 Room Air Constitutional: vitals are stable. Eyes: Eyes are RANGEL EOMI without conjuctival erythema or icterus. ENT: External examination was negative for masses. Neck: Negative for masses or palpable thyromegaly Respiratory: Lung sounds reveal rhonchi bilaterally particularly on the right Cardiovascular: Heart was RRR without significant murmur, gallops aoe rubs Gastrointestinal: No palpable hepatic or splenomegaly. The abdomen was soft with normal bowel sounds. There is a small area of ecchymosis just below the umbilicus and an area of tenderness there Lymphatic system: there was no palpable peripheral lymphadenopathy Musculoskeletal System: The musculoskeletal system seemed concordant with age. No new bone pain. Skin: The skin was negative for jaundice. The large now appearing at least several days old ecchymosis that extends from the right hip down to the proximal portion of the lower leg Neurologic exam: The exam was negative for any focal findings. Deep tendon reflexes were equal and symmetrical. Psychiatric exam: Was essentially negative with normal mood and effect. Extremities: Negative for edema skin exam is as noted Laboratory Results Last 24 Hours Test 04/13/16 18:50 04/14/16 11:02 1/7/17 11:25 Fibrinogen 290 mg/dl White Blood Count 14.48 K/uL Red Blood Count 4.06 M/uL Hemoglobin 11.0 g/dL Hematocrit 34.3 % Mean Corpuscular Volume 84.5 fL Mean Corpuscular Hemoglobin 27.1 pg Mean Corpuscular Hemoglobin Concent 32.1 g/dl RDW Standard Deviation 45.9 fL RDW Coefficient of Variation 14.8 % Platelet Count 241 K/uL Mean Platelet Volume 9.0 fL Assessment & Plan PTT was prolonged. A dilution study normalized. However a lupus anticoagulant screen was positive. I suspect he does have a lupus anticoagulant and in fact a lupus anticoagulant screening test was positive on April 10. This will be repeated along with a "lupus anticoagulant evaluation" test. His films were reviewed. The rectus sheath bleed is fairly prominent. I would monitor his hemoglobin and hematocrit Every 6 or 12 Hours. Transfuse As Needed. If Bleeding Becomes Inordinately Difficult for Troublesome If Bleeding Becomes Uncontrollable Then Fresh Frozen Could Be Given As We Await These Other Lab Tests. Dr. Chan has ordered a von Willebrand profile as well as a factor VIII and 9 level. It Is sometimes difficult to interpret specific factor levels in that they tend to be generally and broadly affected with a nonspecific inhibitor such as a lupus anticoagulant. We will follow along with you. Most likely of course he'll need to be followed in our clinic as these lab values evolve and if discharge occurs prior to their return.
[2016-04-14 11:43] LABS: CALCIUM 8.4 mg/dl (8.5-10.1); CREATININE 0.61 mg/dl (0.60-1.40); POTASSIUM 4.3 mmol/L (3.5-5.1)
--- NOTE | 2016-04-14 18:20 | Progress Note ---
Subjective Date of Service: Apr 14, 2016. Subjective Pt evaluation today including: conversation w/ patient, conversation w/ family ( at bedside), physical exam, chart review, lab review, review of studies ( CT pelvis & right hip), conversation w/ [employer] security consultant (oncology/hematology), review of inpatient medication list Pain: right hip - very mild PO Intake: normal Voiding: no voiding problems states he is "75% better" cough improved; no sputum at this point denies sob at rest mild GRANDE he c/o fullness and pain in his right abdomen Problem List Medical Problems: (1) Bronchitis Status: Acute (2) Contusion of hip Status: Acute (3) COPD exacerbation Status: Acute (4) Hypoxia Status: Acute Review of Systems Constitutional: No fever Respiratory: + cough, + wheezing, No dyspnea at rest, No hemoptysis, No shortness of breath, No sputum Cardiac: No chest pain, No orthopnea Abdomen: + pain, + see HPI, No nausea, No vomiting Objective Vital Signs Date Time Temp Pulse Resp B/P Pulse Ox O2 Delivery O2 Flow Rate FiO2 04/14/16 16:24 Room Air 04/14/16 15:43 36.4 96 18 123/84 99 Room Air 04/14/16 15:27 108 16 92 Room Air 04/14/16 11:27 93 16 92 Room Air 04/14/16 08:05 Room Air 04/14/16 07:56 36.4 102 20 154/91 91 04/14/16 07:15 97 16 92 Room Air 04/14/16 00:00 Room Air 04/13/16 23:42 36.7 99 18 130/81 93 Room Air 04/13/16 19:40 118 16 92 Room Air Physical Exam General Appearance: no apparent distress, + thin ENT: pharynx normal Neck: no JVD Respiratory/Chest: no respiratory distress, no accessory muscle use, + crackles , + wheezing Cardiovascular: no gallop, no murmur, + tachycardia Abdomen: normal bowel sounds, no organomegaly, + distended (there is a palpable mass of fluid in the right side of his abdomen (near the RLQ and suprapubic area); there is slight overlying ecchymoses; there is tenderness w/ palpation ) Extremities: + pertinent finding (thigh swelling on right continues; hematoma right lateral hip unchanged; evolving ecchymoses present as well ) Neurologic/Psychiatric: alert, oriented x 3 Laboratory Results Last 24 Hours Test 04/13/16 18:50 04/14/16 11:02 04/14/16 11:58 Fibrinogen 290 mg/dl White Blood Count 14.48 K/uL Red Blood Count 4.06 M/uL Hemoglobin 11.0 g/dL Hematocrit 34.3 % Mean Corpuscular Volume 84.5 fL Mean Corpuscular Hemoglobin 27.1 pg Mean Corpuscular Hemoglobin Concent 32.1 g/dl RDW Standard Deviation 45.9 fL RDW Coefficient of Variation 14.8 % Platelet Count 241 K/uL Mean Platelet Volume 9.0 fL Sodium Level 137 mmol/L Potassium Level 4.3 mmol/L Chloride Level 98 mmol/L Carbon Dioxide Level 33 mmol/L Anion Gap 6.0 mmol/L Blood Urea Nitrogen 20 mg/dl Creatinine 0.61 mg/dl Est Creatinine Clear Calc Drug Dose 102.8 ml/min Estimated GFR () 117.3 Estimated GFR (Non- 101.2 BUN/Creatinine Ratio 33.0 Random Glucose 86 mg/dl Calcium Level 8.4 mg/dl Assessment and Plan 71yo male: 1. acute hypoxic/hypercarbic resp failure - 2nd to COPD exacerbation - resolved. 04/12/16 - we walked the patient in the hallway and had him return to his room where his O2 sats were 86% in RA. Did not recover to >88% for 2-3 minutes. 2. COPD w/ exacerbation 2nd to moraxella catarrhalis - no change in exam today. Leave steroids as is today (solumedrol 40mg q12h). continue outpatient inhalers, nebs, incentive jaquelin, mucinex, doxycycline (day # 08/12). add mucomyst to nebs. 3. tobacco dependence - counseled to quit 4. right hip contusion with hematoma - 2nd to trauma; x-rays neg for fracture spoke with ortho by phone - nothing to do at this time except cold and/or heat CT hip today unchanged from previous hip CT (no change in size of hematoma). 5. rectus sheath hematoma - either due to trauma vs could have occurred from coughing spell, etc; favor the latter serial H and H's nothing to do otherwise 6. abnormal PTT - mixing study performed and he corrected suggesting factor deficiency. However, on 04/10 there was a +lupus anticoagulant. spoke with Dr. Dukes who recommends checking vWF, factor 8 level, factor 9 level, fibrinogen, etc. I appreciate his consult will not give FFP at this time 7. easy bruising - could be due to #6; also could be scurvy. continue vitamin C 500mg daily see #6 above hold off on d/c observe overnight due to bleeding Continued [facility] stay due to: multiple IV medications needed Discharge planning: home
[2016-04-14] MEDS: ACETYLCYSTEINE 20% INHAL SOLN ***DISPENSED BY RESP. INH SCH (19:15)
[2016-04-14 20:36] LABS: HEMATOCRIT 34.7 % (42-52)
[2016-04-15] VITALS (8 sets, daily range): BP systolic 115–126; BP diastolic 71–77; PULSE 90–117; TEMP 36.5–36.7; O2SAT 89–92
[2016-04-15] MEDS: METHYLPREDNISOLONE IV 40 MG in SYRINGE 0 ML IV SCH ×2 (06:29→16:00)
[2016-04-15 07:03] LABS: HEMATOCRIT 32.4 % (42-52); MEAN CELL VOLUME 84.6 fL (80-100); MEAN CORPUSCULAR HEMOGLOBIN 26.9 pg (25-34); MEAN CORPUSCULAR HGB CONC 31.8 g/dl (32-36); MEAN PLATELET VOLUME 9.6 fL (7.4-10.4); PLATELET COUNT 260 K/uL (130-400); RED BLOOD COUNT 3.83 M/uL (4.7-6.1); WHITE BLOOD COUNT 12.77 K/uL (4.8-10.8)
[2016-04-15 07:31] LABS: CREATININE 0.59 mg/dl (0.60-1.40)
[2016-04-15] MEDS: ALBUT/IPRATROP 3MG/0.5MG NEB 3 ML VIAL INH SCH ×4 (07:33→20:00)
[2016-04-15] MEDS: ACETYLCYSTEINE 20% INHAL SOLN ***DISPENSED BY RESP. INH SCH ×4 (07:34→20:49)
--- NOTE | 2016-04-15 09:21 | Hematology/Oncology Prog Note ---
Hematology/Onc Progress Note Date of Service Apr 15, 2016. Diagnoses COPD Bronchitis Prolonged PTT rule out underlying lupus anticoagulant Rectus sheath hematoma Medications Medications Administered Medications (Trade) Dose Ordered Sig/Maggie Route Start Time Stop Time Status Last Admin Dose Admin Albuterol Sulfate (Ventolin 0.083% 2.5MG/3ML Neb) 2.5 mg NOW STAT INH 04/09/16 16:39 04/09/16 16:40 DC 04/09/16 16:56 2.5 MG Methylprednisolone Sodium Succinate (Solu-Medrol IV) 125 mg NOW STAT IV 04/09/16 17:30 04/09/16 17:32 DC 04/09/16 18:19 125 MG Acetaminophen (Tylenol Tab) 650 mg Q4H PRN PO 04/09/16 19:00 05/09/16 18:59 04/13/16 08:07 650 MG Salmeterol Xinafoate/ Fluticasone (Advair Diskus 500/50 Inh) 1 puff BID INH 04/09/16 20:26 05/09/16 20:59 04/14/16 20:00 1 PUFF Tiotropium [place] 1 puff 1 puff DAILY INH 04/10/16 08:00 05/10/16 08:59 04/14/16 07:54 1 PUFF Methylprednisolone Sodium Succinate/ Syringe (Solu-Medrol IV/ Syringe) 0.96 ml @ 1.5 mls/min Q6H IV 04/10/16 00:00 04/10/16 11:59 DC 04/10/16 11:17 1.5 MLS/MIN Albuterol/ Ipratropium (Duoneb) 3 ml QIDR INH 04/09/16 20:00 05/09/16 19:59 04/15/16 07:33 3 ML Influenza Virus Vaccine Quadrival (Flu Vaccine) 0.5 ml ONCE ONCE IM. 04/09/16 21:45 04/09/16 21:46 DC 04/12/16 15:54 0.5 ML Pneumococcal Polysaccharide Vaccine 25 mcg 25 mcg ONCE ONCE IM. 04/09/16 21:45 04/09/16 21:46 DC 04/12/16 15:55 25 MCG Methylprednisolone Sodium Succinate/ Syringe (Solu-Medrol IV/ Syringe) 0.64 ml @ 1.5 mls/min Q6@0000,0600,1200,1800 IV 04/10/16 18:00 04/11/16 13:22 DC 04/11/16 11:35 1.5 MLS/MIN Doxycycline Hyclate (Vibramycin Cap) 100 mg BID PO 04/10/16 12:30 04/17/16 12:29 04/14/16 21:41 100 MG Guaifenesin (Mucinex Contr Rel Tab) 1,200 mg Q12 PO 04/10/16 12:30 05/10/16 12:29 04/14/16 21:42 1,200 MG Phytonadione (Mephyton Tab) 5 mg NOW ONCE PO 04/11/16 13:05 04/11/16 13:10 DC 04/11/16 13:44 5 MG Phytonadione 5 mg 5 mg DAILY PO 04/12/16 08:00 04/13/16 17:14 DC 04/13/16 08:09 5 MG Methylprednisolone Sodium Succinate/ Syringe (Solu-Medrol IV/ Syringe) 0.64 ml @ 1.5 mls/min Q8H IV 04/11/16 20:00 04/12/16 11:12 DC 04/12/16 04:14 1.5 MLS/MIN Ascorbic Acid (Vitamin C Tab) 500 mg QAM PO 04/12/16 08:00 05/12/16 07:59 04/14/16 07:53 500 MG Ascorbic Acid 500 mg 500 mg NOW ONCE PO 04/11/16 13:40 04/11/16 13:41 DC 04/11/16 15:07 500 MG Methylprednisolone Sodium Succinate/ Syringe (Solu-Medrol IV/ Syringe) 0.64 ml @ 1.5 mls/min Q12H IV 04/12/16 16:00 05/12/16 15:59 04/15/16 06:29 1.5 MLS/MIN Polyethylene (Miralax Powder Packet) 17 gm DAILY PO 04/14/16 08:00 05/14/16 07:59 04/14/16 08:41 17 GM Acetylcysteine (Mucomyst 20% Inh Soln) 2 ml TIDR INH 04/14/16 15:00 05/14/16 14:59 04/15/16 07:34 2 ML Subjective Seems to be doing quite well. He states his cough is better. Presumably this abdominal rectus muscle hematoma was secondary to his coughing. It's good to see that the hematoma at the hip is no worse with yesterday scanned and it was previously. Hemoglobin is 10.2. Review of Systems: Constitutional: Negative for night sweats, or fever Eyes: Negative for event change of vision ENT: Negative for epistaxis, nasal discharge, sore throat, or deafness Cardiovascular: Negative for chest pain, palpitations, dizziness, diaphoresis Respiratory: Negative for new shortness of breath,hemoptysis, or purulent cough Gastrointestinal: Negative for diarrhea, hematemesis, melena, nausea, vomiting , or dyspepsia Integumentary (skin): Negative for rash or jaundice discoloration Genitourinary: Negative for urinary frequency, hematuria, or dysuria Neurological: Negative for weakness, seizure activity, headache, or dizziness Lymphatic/Hematologic: Negative for petechiae, bleeding or new adenopathy Musculoskeletal: Negative for new joint or back pain. He continues to have some pain around this anterior abdominal wall hematoma Allergic/Immunologic: Negative for unusual rash or pruritis. Vital Signs Vital Signs Past 12 Hours Date Time Temp Pulse Resp B/P Pulse Ox O2 Delivery O2 Flow Rate FiO2 04/15/16 07:59 36.5 90 20 122/77 91 Room Air 04/15/16 07:35 97 18 91 Room Air 04/14/16 23:22 99 Room Air 04/14/16 23:10 36.7 100 16 124/74 91 Room Air Physical Exam Constitutional: vitals are stable. Eyes: Eyes are RANGEL EOMI without conjuctival erythema or icterus. ENT: External examination was negative for masses. Neck: Negative for masses or palpable thyromegaly Respiratory: Lung sounds demonstrated continue rhonchi but otherwise generally clear. Cardiovascular: Heart was RRR without significant murmur, gallops aoe rubs Gastrointestinal: No palpable hepatic or splenomegaly. The abdomen was soft with normal bowel sounds. Lymphatic system: there was no palpable peripheral lymphadenopathy Musculoskeletal System: The musculoskeletal system seemed concordant with age. Skin: The skin was negative for jaundice. Work ecchymosis is seen just to the right of midline on the abdominal wall. There is also thickened there to exam. Less tender than yesterday Neurologic exam: The exam was negative for any focal findings. Deep tendon reflexes were equal and symmetrical. Psychiatric exam: Was essentially negative with normal mood and effect. Extremities: Negative for edema or erythema Laboratory Last 24 Hours Test 04/14/16 11:02 04/14/16 11:58 04/14/16 20:29 04/15/16 06:07 White Blood Count 14.48 K/uL 12.77 K/uL Red Blood Count 4.06 M/uL 3.83 M/uL Hemoglobin 11.0 g/dL 11.1 g/dL 10.3 g/dL Hematocrit 34.3 % 34.7 % 32.4 % Mean Corpuscular Volume 84.5 fL 84.6 fL Mean Corpuscular Hemoglobin 27.1 pg 26.9 pg Mean Corpuscular Hemoglobin Concent 32.1 g/dl 31.8 g/dl RDW Standard Deviation 45.9 fL 46.4 fL RDW Coefficient of Variation 14.8 % 14.9 % Platelet Count 241 K/uL 260 K/uL Mean Platelet Volume 9.0 fL 9.6 fL Sodium Level 137 mmol/L Potassium Level 4.3 mmol/L Chloride Level 98 mmol/L Carbon Dioxide Level 33 mmol/L Anion Gap 6.0 mmol/L Blood Urea Nitrogen 20 mg/dl Creatinine 0.61 mg/dl 0.59 mg/dl Est Creatinine Clear Calc Drug Dose 102.8 ml/min 106.3 ml/min Estimated GFR () 117.3 118.9 Estimated GFR (Non- 101.2 102.6 BUN/Creatinine Ratio 33.0 Random Glucose 86 mg/dl Calcium Level 8.4 mg/dl Assessment & Plan Prolonged PTT -probable underlying lupus anticoagulant. Factor specific studies are pending along with another lupus anticoagulant screen and evaluation. Several blood tests are pending. His previous lupus anticoagulant screen was positive. Further evaluation is also pending. Scans were reviewed from yesterday with radiology. As noted earlier in this progress note - the contusion around the right hip was imaged upon admission and then also included in yesterday's films. It is no worse. Presumably the abdominal wall hematoma secondary to his coughing. Would continue to monitor for another 24 hours. He will have a follow-up in our clinic to review the results of yesterday's blood work.
[2016-04-15] MEDS: FLUTICASONE/SALMETEROL (ADVAIR) 500/50 INH 14 PUFF INH SCH ×2 (09:24→20:03)
[2016-04-15] MEDS: DOXYCYCLINE HYCLATE 100 MG CAP PO SCH ×2 (09:25→20:04)
[2016-04-15] MEDS: POLYETHYLENE (MIRALAX) 17 GM PACK PO SCH (09:25)
[2016-04-15] MEDS: GUAIFENESIN 600 MG TABCR PO SCH ×2 (09:26→21:53)
[2016-04-15] MEDS: ASCORBIC ACID 500 MG TAB PO SCH (09:26)
[2016-04-15] MEDS: TIOTROPIUM BROMIDE 5 PUFF/90 MCG INH INH SCH (09:47)
--- NOTE | 2016-04-15 14:31 | Progress Note ---
Subjective Date of Service: Apr 15, 2016. Subjective Pt evaluation today including: conversation w/ patient, conversation w/ family , physical exam, chart review, lab review, review of inpatient medication list Pain: right hip, right lower abdomen but very mild PO Intake: normal/good Voiding: no voiding problems cough essentially resolved no sputum denies dyspnea at rest or w/ exertion feels much better anxious to get home Problem List Medical Problems: (1) Bronchitis Status: Acute (2) Contusion of hip Status: Acute (3) COPD exacerbation Status: Acute (4) Hypoxia Status: Acute Review of Systems Constitutional: No fever Respiratory: + cough, + wheezing, No dyspnea on exertion, No shortness of breath, No sputum Cardiac: No chest pain, No orthopnea Abdomen: + pain, + see HPI, No constipation, No diarrhea, No nausea, No vomiting Objective Vital Signs Date Time Temp Pulse Resp B/P Pulse Ox O2 Delivery O2 Flow Rate FiO2 04/15/16 11:22 94 18 92 Room Air 04/15/16 08:00 Room Air 04/15/16 07:59 36.5 90 20 122/77 91 Room Air 04/15/16 07:35 97 18 91 Room Air 04/14/16 23:22 99 Room Air 04/14/16 23:10 36.7 100 16 124/74 91 Room Air 04/14/16 19:15 120 18 93 Room Air 04/14/16 16:24 Room Air 04/14/16 15:43 36.4 96 18 123/84 99 Room Air 04/14/16 15:27 108 16 92 Room Air Physical Exam General Appearance: no apparent distress ENT: pharynx normal Neck: no JVD Respiratory/Chest: no respiratory distress, no accessory muscle use, + rales ( scattered - bases), + wheezing (end-exp -- much improved) Cardiovascular: regular rate, rhythm, no gallop, no murmur Abdomen: + pertinent finding (swelling, firm, over the RLQ extending to the midline c/w hematoma; overlying ecchymoses present; minimal tenderness; BS+, no HSM) Extremities: + pedal edema (right ankle only), + pertinent finding (hematoma right hip unchanged; evolving ecchymoses over right hip, medial thigh, lateral thigh, and right distal leg) Neurologic/Psychiatric: alert, oriented x 3 Skin: + pertinent finding (as above ) Laboratory Results Last 24 Hours Test 04/14/16 20:29 04/15/16 06:07 Hemoglobin 11.1 g/dL 10.3 g/dL Hematocrit 34.7 % 32.4 % White Blood Count 12.77 K/uL Red Blood Count 3.83 M/uL Mean Corpuscular Volume 84.6 fL Mean Corpuscular Hemoglobin 26.9 pg Mean Corpuscular Hemoglobin Concent 31.8 g/dl RDW Standard Deviation 46.4 fL RDW Coefficient of Variation 14.9 % Platelet Count 260 K/uL Mean Platelet Volume 9.6 fL Creatinine 0.59 mg/dl Est Creatinine Clear Calc Drug Dose 106.3 ml/min Estimated GFR () 118.9 Estimated GFR (Non- 102.6 Assessment and Plan 71yo male: 1. acute hypoxic/hypercarbic resp failure - 2nd to COPD exacerbation - resolved. 04/12/16 - we walked the patient in the hallway and had him return to his room where his O2 sats were 86% in RA. 04/14/16 - nurses report O2 sats fell to 88% in RA with walking. Obtain 2-step on day of discharge to assess for ambulatory O2 needs. 2. COPD w/ exacerbation 2nd to moraxella catarrhalis - improved. Stop IV steroids tonight, convert to PO steroids tomorrow AM. continue outpatient inhalers, nebs, incentive jaquelin, mucinex, doxycycline (day # 6/7). continue mucomyst 1 more day. 3. tobacco dependence - counseled to quit 4. right hip contusion with hematoma - 2nd to trauma; x-rays neg for fracture CT hip 04/14/16 unchanged from previous hip CT. Change from cold packs to heat today and continue heat at home to help speed up resolution. 5. rectus sheath hematoma - either due to trauma vs could have occurred from coughing spell, etc; favor the latter serial H and H's show mild downward trend repeat H/H again this afternoon nothing to do otherwise 6. abnormal PTT - mixing study performed and he corrected suggesting factor deficiency. However, on 04/10/16 there was a +lupus anticoagulant. spoke with Dr. Dukes who recommends checking vWF, factor 8 level, factor 9 level, fibrinogen, etc. These labs are all pending. I appreciate his consult will not give FFP at this time unless H/H continue to fall. 7. easy bruising - could be due to #6; also could be scurvy. continue vitamin C 500mg daily see #6 above 8. acute blood loss anemia - 2nd to hip hematoma & rectal sheath hematoma. Serial H/H's. No need for PRBCs at this time. See discussion above. updated Dr. Dukes recommends another 24 hours of observation - I agree with that recommendation. Continued [facility] stay due to: multiple IV medications needed, other (hip, rectal sheath hematoma) Discharge planning: home
[2016-04-15 15:04] LABS: HEMATOCRIT 31.4 % (42-52)
[2016-04-16] MEDS: ACETYLCYSTEINE 20% INHAL SOLN ***DISPENSED BY RESP. INH SCH ×2 (07:14→15:00)
[2016-04-16] MEDS: ALBUT/IPRATROP 3MG/0.5MG NEB 3 ML VIAL INH SCH ×3 (07:15→15:35)
[2016-04-16 07:17] VITALS: PULSE 84; O2SAT 94
[2016-04-16] MEDS: ASCORBIC ACID 500 MG TAB PO SCH (08:01)
[2016-04-16] MEDS: DOXYCYCLINE HYCLATE 100 MG CAP PO SCH (08:02)
[2016-04-16] MEDS: TIOTROPIUM BROMIDE 5 PUFF/90 MCG INH INH SCH (08:02)
[2016-04-16] MEDS: GUAIFENESIN 600 MG TABCR PO SCH (08:02)
[2016-04-16] MEDS: POLYETHYLENE (MIRALAX) 17 GM PACK PO SCH (08:02)
[2016-04-16] MEDS: FLUTICASONE/SALMETEROL (ADVAIR) 500/50 INH 14 PUFF INH SCH (08:03)
[2016-04-16 08:32] VITALS: BP 130/77; PULSE 95; TEMP 36.6; O2SAT 90
[2016-04-16 09:14] LABS: HEMATOCRIT 32.4 % (42-52); MEAN CELL VOLUME 85.9 fL (80-100); MEAN CORPUSCULAR HEMOGLOBIN 27.6 pg (25-34); MEAN CORPUSCULAR HGB CONC 32.1 g/dl (32-36); MEAN PLATELET VOLUME 9.6 fL (7.4-10.4); PLATELET COUNT 258 K/uL (130-400); RED BLOOD COUNT 3.77 M/uL (4.7-6.1); WHITE BLOOD COUNT 14.29 K/uL (4.8-10.8)
[2016-04-16 09:46] LABS: BUN/CREATININE RATIO 31.6 (10-20); CALCIUM 8.6 mg/dl (8.5-10.1); CREATININE 0.64 mg/dl (0.60-1.40)
[2016-04-16 11:20] VITALS: PULSE 96; O2SAT 90
--- NOTE | 2016-04-16 12:21 | Hematology/Oncology Prog Note ---
Hematology/Onc Progress Note Date of Service Apr 16, 2016. Diagnoses COPD Bronchitis Prolonged PTT rule out underlying lupus anticoagulant Rectus sheath hematoma Medications Medications Administered Medications (Trade) Dose Ordered Sig/Maggie Route Start Time Stop Time Status Last Admin Dose Admin Albuterol Sulfate (Ventolin 0.083% 2.5MG/3ML Neb) 2.5 mg NOW STAT INH 04/09/16 16:39 04/09/16 16:40 DC 04/09/16 16:56 2.5 MG Methylprednisolone Sodium Succinate (Solu-Medrol IV) 125 mg NOW STAT IV 04/09/16 17:30 04/09/16 17:32 DC 04/09/16 18:19 125 MG Acetaminophen (Tylenol Tab) 650 mg Q4H PRN PO 04/09/16 19:00 05/09/16 18:59 04/13/16 08:07 650 MG Salmeterol Xinafoate/ Fluticasone (Advair Diskus 500/50 Inh) 1 puff BID INH 04/09/16 20:26 05/09/16 20:59 04/16/16 08:03 1 PUFF Tiotropium [place] 1 puff 1 puff DAILY INH 04/10/16 08:00 05/10/16 08:59 04/16/16 08:02 1 PUFF Methylprednisolone Sodium Succinate/ Syringe (Solu-Medrol IV/ Syringe) 0.96 ml @ 1.5 mls/min Q6H IV 04/10/16 00:00 04/10/16 11:59 DC 04/10/16 11:17 1.5 MLS/MIN Albuterol/ Ipratropium (Duoneb) 3 ml QIDR INH 04/09/16 20:00 05/09/16 19:59 04/16/16 11:19 3 ML Influenza Virus Vaccine Quadrival (Flu Vaccine) 0.5 ml ONCE ONCE IM. 04/09/16 21:45 04/09/16 21:46 DC 04/12/16 15:54 0.5 ML Pneumococcal Polysaccharide Vaccine 25 mcg 25 mcg ONCE ONCE IM. 04/09/16 21:45 04/09/16 21:46 DC 04/12/16 15:55 25 MCG Methylprednisolone Sodium Succinate/ Syringe (Solu-Medrol IV/ Syringe) 0.64 ml @ 1.5 mls/min Q6@0000,0600,1200,1800 IV 04/10/16 18:00 04/11/16 13:22 DC 04/11/16 11:35 1.5 MLS/MIN Doxycycline Hyclate (Vibramycin Cap) 100 mg BID PO 04/10/16 12:30 04/17/16 12:29 04/16/16 08:02 100 MG Guaifenesin (Mucinex Contr Rel Tab) 1,200 mg Q12 PO 04/10/16 12:30 05/10/16 12:29 04/16/16 08:02 1,200 MG Phytonadione (Mephyton Tab) 5 mg NOW ONCE PO 04/11/16 13:05 04/11/16 13:10 DC 04/11/16 13:44 5 MG Phytonadione 5 mg 5 mg DAILY PO 04/12/16 08:00 04/13/16 17:14 DC 04/13/16 08:09 5 MG Methylprednisolone Sodium Succinate/ Syringe (Solu-Medrol IV/ Syringe) 0.64 ml @ 1.5 mls/min Q8H IV 04/11/16 20:00 04/12/16 11:12 DC 04/12/16 04:14 1.5 MLS/MIN Ascorbic Acid (Vitamin C Tab) 500 mg QAM PO 04/12/16 08:00 05/12/16 07:59 04/16/16 08:01 500 MG Ascorbic Acid 500 mg 500 mg NOW ONCE PO 04/11/16 13:40 04/11/16 13:41 DC 04/11/16 15:07 500 MG Methylprednisolone Sodium Succinate/ Syringe (Solu-Medrol IV/ Syringe) 0.64 ml @ 1.5 mls/min Q12H IV 04/12/16 16:00 04/15/16 20:55 DC 04/15/16 16:00 1.5 MLS/MIN Polyethylene (Miralax Powder Packet) 17 gm DAILY PO 04/14/16 08:00 05/14/16 07:59 04/16/16 08:02 17 GM Acetylcysteine (Mucomyst 20% Inh Soln) 2 ml TIDR INH 04/14/16 15:00 05/14/16 14:59 04/16/16 07:14 2 ML Prednisone (PredniSONE TAB) 40 mg QAM PO 04/16/16 08:00 05/16/16 07:59 04/16/16 08:01 40 MG Subjective Hemoglobin is stable at 10.4. He is anxious for discharge. Review of Systems: Constitutional: Negative for night sweats, or fever Eyes: Negative for event change of vision ENT: Negative for epistaxis, nasal discharge, sore throat, or deafness Cardiovascular: Negative for chest pain, palpitations, dizziness, diaphoresis Respiratory: Negative for new shortness of breath,hemoptysis, or purulent cough Gastrointestinal: Negative for diarrhea, hematemesis, melena, nausea, vomiting , or dyspepsia Integumentary (skin): Negative for rash or jaundice discoloration Genitourinary: Negative for urinary frequency, hematuria, or dysuria Neurological: Negative for weakness, seizure activity, headache, or dizziness Lymphatic/Hematologic: Negative for petechiae, bleeding or new adenopathy Musculoskeletal: Negative for new joint or back pain Allergic/Immunologic: Negative for unusual rash or pruritis. Vital Signs Vital Signs Past 12 Hours Date Time Temp Pulse Resp B/P Pulse Ox O2 Delivery O2 Flow Rate FiO2 04/16/16 11:20 96 20 90 Room Air 04/16/16 08:32 36.6 95 16 130/77 90 Room Air 04/16/16 08:30 Room Air 04/16/16 07:17 84 20 94 Room Air Physical Exam Constitutional: vitals are stable. Eyes: Eyes are RANGEL EOMI without conjuctival erythema or icterus. ENT: External examination was negative for masses. Neck: Negative for masses or palpable thyromegaly Respiratory: Lung sounds were generally clear bilaterally Cardiovascular: Heart was RRR without significant murmur, gallops aoe rubs Gastrointestinal: No palpable hepatic or splenomegaly. The abdomen was soft with normal bowel sounds. Ecchymosis is noted suprapubically in the area of the rectus sheath hematoma Lymphatic system: there was no palpable peripheral lymphadenopathy Musculoskeletal System: The musculoskeletal system seemed concordant with age. Skin: The skin was negative for jaundice. Neurologic exam: The exam was negative for any focal findings. Deep tendon reflexes were equal and symmetrical. Psychiatric exam: Was essentially negative with normal mood and effect. Extremities: As before he has a fairly hefty bruise that extends from the right hip down to the proximal portion of his right lower extremity Laboratory Last 24 Hours Test 04/15/16 14:55 04/16/16 08:55 Hemoglobin 10.1 g/dL 10.4 g/dL Hematocrit 31.4 % 32.4 % White Blood Count 14.29 K/uL Red Blood Count 3.77 M/uL Mean Corpuscular Volume 85.9 fL Mean Corpuscular Hemoglobin 27.6 pg Mean Corpuscular Hemoglobin Concent 32.1 g/dl RDW Standard Deviation 47.0 fL RDW Coefficient of Variation 15.3 % Platelet Count 258 K/uL Mean Platelet Volume 9.6 fL Sodium Level 137 mmol/L Potassium Level 4.0 mmol/L Chloride Level 99 mmol/L Carbon Dioxide Level 29 mmol/L Anion Gap 9.0 mmol/L Blood Urea Nitrogen 20 mg/dl Creatinine 0.64 mg/dl Est Creatinine Clear Calc Drug Dose 98.0 ml/min Estimated GFR () 115.0 Estimated GFR (Non- 99.2 BUN/Creatinine Ratio 31.6 Random Glucose 129 mg/dl Calcium Level 8.6 mg/dl Assessment & Plan Prolonged PTT -probable underlying lupus anticoagulant. Factor specific studies are pending along with another lupus anticoagulant screen and evaluation. His hemoglobin is stable over the past 24 hours. I believe he can be discharged from the coagulopathy standpoint and followed up in our clinic in regards to the prolonged PTT. That follow-up appointment will be arranged.
[2016-04-16] MEDS ORDERED: IPRASOL4 INH (14:10)
[2016-04-16] MEDS ORDERED: MCMIN20ML INH (14:13)
[2016-04-16] MEDS ORDERED: PRED10TA PO (14:13)
[2016-04-16] MEDS ORDERED: GFNSR600 PO (14:13)
[2016-04-16] MEDS ORDERED: DXY100 PO (14:13)
--- NOTE | 2016-04-16 14:15 | Discharge Instructions ---
Discharge Instructions Admission Reason for Admission: Copd Exacerbation, Hypoxia Discharge Discharge Diagnosis / Problem: copd / bronchitis / coagulopathy causing large muscle bruise on right thigh Discharge Goals Goal(s): Diagnostic testing, Therapeutic intervention Activity Recommendations Activity Limitations: as noted below Lifting Limitations: gradually increase as tolerated . Current Hospital Diet Patient's current hospital diet: Regular Diet Discharge Diet Recommended Diet: Regular Diet Pending Studies Studies pending at discharge: no Medical Emergencies . Who to Call and When: Medical Emergencies: If at any time you feel your situation is an emergency, please call 911 immediately. . Non-Emergent Contact Non-Emergency issues call your: Primary Care Provider, Specialist (sliver machine operator , Dr Dukes) Call Non-Emergent contact if: you have a fever . . "Provider Documentation" section prepared by Lázaro Reid. VTE Core Measure Inpt VTE Proph given/why not?: Enoxaparin (Lovenox)SQ
[2016-04-16 14:16] VITALS: BP 130/77; PULSE 96; TEMP 36.6; O2SAT 90
[2016-04-16 15:36] VITALS: PULSE 89; O2SAT 92
--- NOTE | 2016-04-16 16:06 | Discharge Summary ---
Discharge Summary Admission Date: Apr 10, 2016 at 11:57 Discharge Date: Apr 16, 2016 Discharge Disposition: Home Principal Diagnosis: COPD Exacerbation Consultations: 1. Heme/Onc (Silvana Bennett PA-C) Medication Reconciliation New Medications: Prednisone (Prednisone) 10 Mg Tab 10 MG PO UD, #42 TAB 4 pills a day for 4 days then 3 pills a day for 4 days then 2 pills a day for 4 days then 1 pill a day Acetylcysteine (Acetylcysteine) 1 Ml Soln 2 ML INH TIDR, #30 ML Doxycycline Hyclate (Doxycycline Hyclate) 100 Mg Cap 100 MG PO BID, #14 CAP Guaifenesin Ext Rel (Mucinex Ext Rel) 600 Mg Tabcr 1200 MG PO Q12, #30 DOSE Ipratropium-Albuterol (Duoneb) 3 Ml Nebu 3 ML INH QIDR, #30 DOSE Continued Medications: Albuterol (Ventolin Hfa) 60 Puffs/5400 Mcg Aers 2 PUFF PO DIRECTED Fluticasone Prop/Salmeterol (Advair Diskus 500/50 60 Dose) 1 Ea Aerp 1 PUFF INH BID, INHALER Tiotropium [place] (Spiriva Handihaler) 30 Puff/540 Mcg Aerp 1 CAP INH DAILY, INHALER Discharge Exam Review of Systems: Constitutional: No chills, No fever Eyes: No worsening of vision ENT: No nasal symptoms, No sore throat, No trouble swallowing Respiratory: + cough, No dyspnea at rest, No dyspnea on exertion, No shortness of breath, No wheezing Cardiovascular: No chest pain Abdomen: No diarrhea, No nausea, No pain, No vomiting Musculoskeletal: No calf pain, No swelling Genitourinary - Male: No dysuria Neurologic: No vertigo, No weakness Hematologic / Lymphatic: No abnormal bleeding/bruising Integumentary: No rash (Silvana Bennett PA-C) Hospital Course ADMISSION: This is a 71 yo m with known COPD that is presenting to us after a fall on ice he had on . The patient states that he was walking outside and fell onto his right hip when walking on ice. Since then a large bruise arose on the right hip and there is pain with movement. the patient was concerned that the pain was indicative of a fracture and wished to have it evaluated. Pain is an ache, 4/10 only on right hip without radiation. Aggravated with walking or touching the right hip. Denies any numbness/ tingling in LE, fever chest pain. While he was assessed in the ED it was noted that his O2 sat was 84%. He had improvement of his O2 sat on 2-3 L of oxygen. When discussing his O2 sat both him and his states that he typically "runs in the 80s". He is followed by Dr Ventura regularly with the last visit in January. When looking at vitals taken during outpt visits the O2 sat and pulse were similar in nature to what was noted on the monitor. He states that he actually has no SOBOE or SOB at rest and is able to do errands around the house without dyspnea. This has not changed recently. He is currently on Spriva, Advair and Albuterol. He rarely uses albuterol. He did have a cold 2 weeks ago but currently symptom free. He continues to smoke but states he has count down his PPD in half. Has tried to quit completely. No other health problems or surgeries noted. HOSPITAL COURSE: Acute Hypoxic/Hypercarbic Respiratory Failure 2/2 COPD Exacerbation - RESOLVED - 2 Step on D/C - 92% at rest with desat to 87% with ambulation with rebound to 90s in 15 seconds - desat x 2 - Given prescription for home O2 to use with ambulation COPD w/ Exacerbation 2/2 Moraxella Catarrhalis - IMPROVING - Continue Prednisone taper of 40 mg x 4 days then 30 mg x 4 days then 20 mg x 4 days then 10 mg x 4 days - Continue outpatient inhalers, nebs, incentive jaquelin, mucinex - Doxycycline 100 mg BID x 7 days - Rx given for nebulizer with Duonebs and Acetylcysteine Tobacco Dependence - counseled to quit Right Hip Contusion with Hematoma - 2/2 Rrauma; x-rays neg for fracture - Continue heat application to area Rectus Sheath Hematoma: - Initial H&H revealed trending down however has stabilized in 10s Abnormal PTT - mixing study performed and he corrected suggesting factor deficiency. However, on 04/10/16 there was a +lupus anticoagulant. - Pending labs - vWF, factor 8 level, factor 9 level, fibrinogen, etc - Follow-up with Dr. Dukes and Heme/Onc clinic on April Easy Bruising - could be due to abnormal PTT; also could be scurvy. - Continue vitamin C 500mg daily Acute Blood Loss Anemia - 2/2 Hip Hematoma & Rectal Sheath Hematoma - H&H stable no need for blood transfusion Disposition: - Patient reports he is at baseline. 2 step performed that qualified for home O2 with ambulation. He is in no acute distress, vitals stable, no acute complaints, and is optimal for discharge home with PCP follow-up on April 24, 2016 with Kaylah Mascorro PA-C Total Time Spent: Greater than 30 minutes This includes examination of the patient, discharge planning, medication reconciliation, and communication with other providers. (Silvana Bennett PA-C) MUKUL Physician Supervision Note: I interviewed and examined the patient. Discussed with Silvana Bennett PAC and agree with findings and plan as documented in the note. Any exceptions or clarifications are listed here: None Pt has done well with his hematoma and has less pain, his copd exacerbation has abated vitals stable lungs with poor air movement but no wheezes right leg hematoma is extensive but not painful discharge to home , prednisone taper, doxycycline, nebulized mediations, follow up with family doctor and orthopaedics Documented By: Lázaro Reid (Lázaro Reid M.D.) Discharge Instructions Please refer to the electronic Patient Visit Report (Discharge Instructions) for additional information. (Silvana Bennett PA-C) Additional Copies To Maxwell Solares M.D.; Kaylah Mascorro PA
[2016-04-17 06:41] LABS: COAG FACTOR 9 ACTIVITY**TC352X 121 % (60-160); LUPUS ANTICOAGULANT** TC36573X Negative (Negative)
[2016-04-17 22:31] LABS: DRVVT MIX INTERPRETAION Not Indicated; LAC PTT SCREEN 46 sec (<=40)
[2016-04-19 13:22] LABS: LUPUS ANTICOAGULANT** TC36573X Negative (Negative)
[2016-04-20 10:12] LABS: FACTOR VIII ACTIV**SEND TO GMC 16 % (55 - 145)
[2016-04-25 19:04] LABS: APTT 36 sec (22-34); F8 ACT 16 % (50-180); RISTOCETIN COFACTOR** 4459X 233 % (42-200); VWF CONSULT Limited
[2016-12-11] MEDS ORDERED: ACET20SO4 INH (10:13)
[2016-12-11] MEDS ORDERED: PRED-301 PO (10:13)
[2016-12-11] MEDS ORDERED: IPRASOL4 INH (10:13)
[2016-12-11] MEDS ORDERED: VNTHFA/IN INH (10:13)
[2016-12-11] MEDS ORDERED: ADVIN50/60 INH (10:13)
[2016-12-11] MEDS ORDERED: DEXT30TA7 PO (10:13)
[2016-12-11] MEDS ORDERED: COQ10 PO (10:14)
[2016-12-11] MEDS ORDERED: ACET-1256 PO (10:15)
[2016-12-11] MEDS ORDERED: OXGN (10:15)
== END 2016-04-16 16:32 | disposition home or self-care (01) | DRG 190 ==
LOC: ENRESERVTM → ENRESERVDT → C.EDB 13:41 → C.4E 18:52 → OBSVTOIN 04-10 11:57
PROVIDERS: ADMIT Hospitalist; ATTEND Internal Medicine
DX: J44.1 Chronic obstructive pulmonary disease with (acute) exacerbation (principal); J96.01 Acute respiratory failure with hypoxia; J96.02 Acute respiratory failure with hypercapnia; D62 Acute posthemorrhagic anemia; D68.62 Lupus anticoagulant syndrome; J44.0 Chronic obstructive pulmonary disease with (acute) lower respiratory infection; B96.89 Other specified bacterial agents as the cause of diseases classified elsewhere; S70.01XA Contusion of right hip, initial encounter; M79.81 Nontraumatic hematoma of soft tissue; R23.3 Spontaneous ecchymoses; E54 Ascorbic acid deficiency; F17.200 Nicotine dependence, unspecified, uncomplicated; W00.0XXA Fall on same level due to ice and snow, initial encounter; Y93.01 Activity, walking, marching and hiking; Y99.8 Other external cause status

== ENCOUNTER → 2016-04-25 | Outpatient (CLI) | payer OTHER ==
[~2016-04-25] MED LIST: ACET-1256 PO; ACET20SO4 INH; ADVIN50/60 INH; COQ10 PO; DEXT30TA7 PO; DXY100 PO; GFNSR600 PO; IPRASOL4 INH; MCMIN20ML INH; OXGN; PRED-301 PO; PRED10TA PO; PRVHFAIN PO; SPRIN/30 INH; VNTHFA/IN INH
--- NOTE | 2016-04-25 11:05 | DIAGNOSTIC IMAGING REPORT ---
RIGHT LOWER EXTREMITY VENOUS DOPPLER CLINICAL HISTORY: Right leg hematoma status post fall. COMPARISON STUDY: No previous studies for comparison. TECHNIQUE: Sonography of the deep venous system of the right lower extremity was performed. Compression and augmentation were evaluated. FINDINGS: The right common femoral, superficial femoral and popliteal veins were compressible. Augmentation was normal. Flow was shown within the deep calf vessels. IMPRESSION: No evidence of deep venous thrombus within the right lower extremity. Electronically signed by: Isaac Qiu M.D. 04/25/2016 11:03 AM Dictated Date/Time: 04/25/2016 11:02 AM
--- NOTE | 2016-04-25 11:07 | DIAGNOSTIC IMAGING REPORT ---
ULTRASOUND OF THE ABDOMINAL WALL CLINICAL HISTORY: Abdominal wall injury and tenderness. COMPARISON STUDY: No priors. FINDINGS: Real-time, grayscale, and color flow sonography of the right lower quadrant abdominal wall is performed at the indicated site of interest. No hernia is identified. No hernia could be elicited by having the patient perform the Valsalva maneuver. There is a nonvascular complex fluid collection seen in the abdominal wall measuring 6.3 x 2.2 x 6.6 cm. This appears to be located within the rectus sheath. IMPRESSION: There is a 6.6 cm right rectus sheath hematoma identified at the site of interest. Clinical follow-up to resolution is recommended. Electronically signed by: Harjinder Yuen M.D. 04/25/2016 11:05 AM Dictated Date/Time: 04/25/2016 11:03 AM
[2016-04-25 11:10] LABS: MEAN CELL VOLUME 91.8 fL (80-100); MEAN CORPUSCULAR HEMOGLOBIN 29.2 pg (25-34); MEAN CORPUSCULAR HGB CONC 31.8 g/dl (32-36); PLATELET COUNT 280 K/uL (130-400); RED BLOOD COUNT 4.25 M/uL (4.7-6.1); WHITE BLOOD COUNT 14.24 K/uL (4.8-10.8)
--- NOTE | 2016-04-30 12:59 | CODING QUERY MEDICAL NECESSITY ---
SUPPORTING DIAGNOSIS NEEDED Subha GILMAN, A supporting diagnosis is required for the test/procedure performed on this patient in order for us to be reimbursed by the patient's insurance. Please provide a supporting diagnosis for the following test/procedure listed below next to the test name along with your signature. *If there is no additional diagnosis for this patient that would support the following test/procedure please document that below next to the test/procedure. Test(s)/Procedure(s) that require a supporting diagnosis: * ([id number]) VENOUS DOPPLER LOWER EXT UNILA DIAGNOSIS: DATE OF SERVICE: 04/25/16 Provider Signature: Date: Thank you Delta Frazier [facility] Information Management Once completed, please kindly fax back to [phone] For questions please call [phone]
== END | disposition home or self-care (01) ==
LOC: C.ULTR 10:08
PROVIDERS: ATTEND Internal Medicine
DX: S70.01XA Contusion of right hip, initial encounter (principal); S30.1XXA Contusion of abdominal wall, initial encounter; X58.XXXA Exposure to other specified factors, initial encounter

== ENCOUNTER → 2016-06-18 | Outpatient (CLI) | payer OTHER ==
[~2016-06-18] MED LIST changes: +COEN100C11 PO; +lortab elixir PO
[2016-06-18 18:41] LABS: BASO % 0.1 %; BASO ABS # 0.01 K/uL (0-0.2); COMPLETE YES; EOS % 0.7 %; HEMATOCRIT 47.1 % (42-52); IG% 0.1 %; LYMPH % 9.2 %; LYMPH ABS # 1.38 K/uL (1.2-3.4); MEAN CELL VOLUME 88.7 fL (80-100); MEAN CORPUSCULAR HEMOGLOBIN 28.1 pg (25-34); MEAN CORPUSCULAR HGB CONC 31.6 g/dl (32-36); MEAN PLATELET VOLUME 9.8 fL (7.4-10.4); MONO % 2.1 %; NEUT % 87.8 %; PLATELET COUNT 311 K/uL (130-400); RED BLOOD COUNT 5.31 M/uL (4.7-6.1); WHITE BLOOD COUNT 14.96 K/uL (4.8-10.8)
[2016-06-18 18:57] LABS: INR 0.9 (0.9-1.1); PARTIAL THROMBOPLASTIN RATIO 1.5; PROTHROMBIN TIME (PATIENT) 9.9 SECONDS (9.0-12.0)
[2016-06-18 18:58] LABS: ALT/SGPT 8 U/L (12-78); BLOOD UREA NITROGEN 20 mg/dl (7-18); BUN/CREATININE RATIO 33.2 (10-20); CALCIUM 9.1 mg/dl (8.5-10.1); CARBON DIOXIDE 32 mmol/L (21-32); CHLORIDE 99 mmol/L (98-107); GLUCOSE 90 mg/dl (70-99); POTASSIUM 4.3 mmol/L (3.5-5.1); SODIUM 138 mmol/L (136-145)
[2016-06-18 19:10] LABS: ALB/GLOB RATIO 0.8 (0.9-2); ALKALINE PHOSPHATASE 101 U/L (45-117); AST/SGOT 11 U/L (15-37)
== END | disposition home or self-care (01) ==
LOC: C.LABBFT 13:42
PROVIDERS: ATTEND Internal Medicine Hematology & Oncology
DX: D66 Hereditary factor VIII deficiency (principal)

== ENCOUNTER → 2016-06-25 | Outpatient (CLI) | payer OTHER ==
[2016-06-25 17:41] LABS: PARTIAL THROMBOPLASTIN RATIO 1.6
[2016-06-25 17:43] LABS: BASO % 0.1 %; BASO ABS # 0.01 K/uL (0-0.2); COMPLETE YES; EOS % 0.1 %; HEMATOCRIT 44.3 % (42-52); IG% 0.2 %; LYMPH % 3.9 %; LYMPH ABS # 0.58 K/uL (1.2-3.4); MEAN CELL VOLUME 88.6 fL (80-100); MEAN CORPUSCULAR HEMOGLOBIN 28.4 pg (25-34); MEAN CORPUSCULAR HGB CONC 32.1 g/dl (32-36); MONO % 2.4 %; NEUT % 93.3 %; PLATELET COUNT 215 K/uL (130-400); WHITE BLOOD COUNT 14.73 K/uL (4.8-10.8)
[2016-06-25 17:59] LABS: ALT/SGPT 7 U/L (12-78); AST/SGOT 16 U/L (15-37); BLOOD UREA NITROGEN 9 mg/dl (7-18); BUN/CREATININE RATIO 14.3 (10-20); CALCIUM 9.2 mg/dl (8.5-10.1); CARBON DIOXIDE 32 mmol/L (21-32); CHLORIDE 100 mmol/L (98-107); CREATININE 0.66 mg/dl (0.60-1.40); GLUCOSE 98 mg/dl (70-99); POTASSIUM 4.2 mmol/L (3.5-5.1); SODIUM 140 mmol/L (136-145)
[2016-06-25 18:02] LABS: ALB/GLOB RATIO 0.9 (0.9-2); ALKALINE PHOSPHATASE 89 U/L (45-117)
== END | disposition home or self-care (01) ==
LOC: C.LABBFT 13:43
PROVIDERS: ATTEND Internal Medicine Hematology & Oncology
DX: D66 Hereditary factor VIII deficiency (principal)

== ENCOUNTER → 2016-07-16 | Outpatient (CLI) | payer OTHER ==
[2016-07-16 13:59] LABS: PARTIAL THROMBOPLASTIN RATIO 1.4
== END | disposition home or self-care (01) ==
LOC: C.LAB 11:50
PROVIDERS: ATTEND Internal Medicine Hematology
DX: D68.311 Acquired hemophilia (principal)

== ENCOUNTER → 2016-12-11 | Outpatient (CLI) | payer OTHER ==
[~2016-12-11] VITALS: Ht 175.3 cm; Wt 64.1 kg
[~2016-12-11] MED LIST changes: +LACTATED RINGER'S 1000ML 1,000 ML IV SCH; -PRED10TA PO; -lortab elixir PO
[2016-12-11 10:16] VITALS: Ht 175.3 cm; Wt 64.1 kg
--- NOTE | 2016-12-11 10:48 | PAT Medication Instructions ---
Service Date Dec 11, 2016. Current Home Medication List Acetaminophen (Tylenol), 1,000 MG PO PRN Acetylcysteine (Acetylcysteine), 2 ML INH TID PRN for RN Albuterol Hfa (Ventolin Hfa), 2-4 PUFFS INH PRN Dextromethorphan-Guaifenesin (Mucinex Dm), 1 TAB PO Q12 Fluticasone Prop/Salmeterol (Advair Diskus 500/50 60 Dose), 1 PUFF INH BID Home O2 Therapy (Oxygen), 3-4 LITERS NA CONT Ipratropium-Albuterol (Duoneb), 1 TREATMENT INH QID PRN for RN Prednisone (Prednisone), 5 MG PO BID Tiotropium [place] (Spiriva Handihaler), 1 CAP INH QAM [Coq10], 1 TAB PO QAM Medication Instructions For Your Scheduled Surgery - Hold the following medications starting 12/12/16: [Coq10], 1 TAB PO QAM - Hold the following medications the morning of surgery: Dextromethorphan-Guaifenesin (Mucinex Dm), 1 TAB PO Q12 - Take the following medications the morning of surgery with a sip of water: Acetaminophen (Tylenol), 1,000 MG PO PRN (If needed) Acetylcysteine (Acetylcysteine), 2 ML INH TID PRN for RN (If needed) Albuterol Hfa (Ventolin Hfa), 2-4 PUFFS INH PRN (If needed) Fluticasone Prop/Salmeterol (Advair Diskus 500/50 60 Dose), 1 PUFF INH BID Home O2 Therapy (Oxygen), 3-4 LITERS NA CONT Ipratropium-Albuterol (Duoneb), 1 TREATMENT INH QID PRN for RN (If needed) Prednisone (Prednisone), 5 MG PO BID Tiotropium [place] (Spiriva Handihaler), 1 CAP INH QAM - Take the following medications as scheduled the night before surgery: Prednisone (Prednisone), 5 MG PO BID Home O2 Therapy (Oxygen), 3-4 LITERS NA CONT Fluticasone Prop/Salmeterol (Advair Diskus 500/50 60 Dose), 1 PUFF INH BID Ipratropium-Albuterol (Duoneb), 1 TREATMENT INH QID PRN for RN (If needed) Dextromethorphan-Guaifenesin (Mucinex Dm), 1 TAB PO Q12 Acetaminophen (Tylenol), 1,000 MG PO PRN (If needed) Acetylcysteine (Acetylcysteine), 2 ML INH TID PRN for RN (If needed) Albuterol Hfa (Ventolin Hfa), 2-4 PUFFS INH PRN (If needed) If you have any questions please call us at [phone] or [phone] or [phone]
[2016-12-11 11:25] LABS: BASO % 0.2 %; BASO ABS # 0.02 K/uL (0-0.2); COMPLETE YES; EOS % 0.3 %; HEMATOCRIT 51.1 % (42-52); IG% 0.3 %; LYMPH ABS # 0.65 K/uL (1.2-3.4); MEAN CELL VOLUME 88.1 fL (80-100); MEAN CORPUSCULAR HEMOGLOBIN 27.2 pg (25-34); MEAN CORPUSCULAR HGB CONC 30.9 g/dl (32-36); MEAN PLATELET VOLUME 10.4 fL (7.4-10.4); MONO % 4.5 %; NEUT % 88.7 %; PLATELET COUNT 168 K/uL (130-400); WHITE BLOOD COUNT 10.85 K/uL (4.8-10.8)
--- NOTE | 2016-12-11 11:55 | DIAGNOSTIC IMAGING REPORT ---
CHEST 2 VIEWS ROUTINE HISTORY: Preop. COMPARISON: Chest 04/09/2016. FINDINGS: The lungs are clear. Cardiac silhouette is normal in size. No pleural effusions. No pneumothorax. IMPRESSION: No acute process. Electronically signed by: Hamzah Combs M.D. 12/11/2016 11:54 AM Dictated Date/Time: 12/11/2016 11:52 AM
== END | disposition home or self-care (01) ==
LOC: C.LAB 08:00 → EDSTATUS 12-19 07:15
DX: Z01.811 Encounter for preprocedural respiratory examination (principal)

== ENCOUNTER → 2017-05-03 | Outpatient (CLI) | payer OTHER ==
[~2017-05-03] MED LIST changes: -COQ10 PO; +DOXY100C76 PO; -DXY100 PO; -GFNSR600 PO; +HYDR-3983 PO; -LACTATED RINGER'S 1000ML 1,000 ML IV SCH; +MBXC PO; -MCMIN20ML INH; -PRVHFAIN PO; +lortab elixir PO
[2017-05-03 08:41] VITALS: BP 114/76; PULSE 80; TEMP 36.6; O2SAT 97
--- NOTE | 2017-05-03 10:42 | Radiation Oncology Follow-Up ---
Radiation Oncology Follow-Up Date of Visit May 03, 2017. 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 Radiation was completed 04/05/2017. He received 6996 cGy. Last Edited By: Gillian Salinas on Apr 16, 2017 09:56 History of Present Illness Mr. De La Torre is a 71-year-old gentleman who recently presented with hoarseness of his voice. The patient was initially seen by Dr. Solorio from ENT however was subsequently referred to Dr. Hayes due to medical clearance issues. Dr. Hayes performed a strobovideolaryngoscopy on 12/25/2016 which revealed a mass involving the left vocal cord in the left vocal cord was fixed; additionally, he noted that the tumor extended subglottically however there is no other involvement beyond the left vocal cord and left subglottic region. The patient then underwent a direct laryngoscopy and esophagoscopy with biopsy on [address] Hayes and he described a left vocal cord lesion that extended to the supraglottis and slightly into the subglottic region and involved the entire left cord including the anterior commissure. A biopsy was obtained which revealed squamous cell carcinoma that was moderately differentiated and negative for p16. The patient had a CT of the neck with contrast and a PET scan on 01/16/2017 which revealed "an FDG avid lesion involving the left side of the laryngeal soft tissues, consistent with the history of squamous cell carcinoma, without evidence of local or distant metastatic disease and appears to be mainly centered in the region of the false vocal cord however the true vocal cord is buckled which would indicate likely involvement." The patient's case was discussed at the multidisciplinary head and neck tumor board at the [facility] in [place], [place] and the overall recommendation was consideration for chemotherapy and radiation therapy. The patient was referred to Dr. Ezra Gan for medical oncology and we are now seeing the patient in consultation for consideration of radiation therapy. In general, the patient is doing relatively well. His only complaint at this point is hoarseness in his voice. Otherwise he is doing relatively well overall. Status post completion of combined radiation and chemotherapy 04/05/2017. He received 6996 cGy. Interim History He is been doing well over the past month. He has had some improvement in his voice quality. He had very little voice at the end of treatment. Now he does have some audible sound. There is hoarseness associated. He continues to have dysphagia. For this he has been using the hydrocodone AP AP every 6 hours. He denied any difficulty with skin irritation. He has had some shortness of breath and cough. He continues on oxygen therapy. 2-3 L/m. There is been no fever or chills. He has had no hemoptysis. His weight has been stable he has had proximal 2 pound weight loss since completion of treatment. He continued to have difficulty with taste. Denies issues with xerostomia. He does have fatigue since the completion of treatment. There has been some rectal bleeding associated with hemorrhoids. This is been a long standing issue. He did have colonoscopy 2 years ago. Allergies Coded Allergies: No Known Allergies (Unverified , NONE, 12/11/16) Home Medications Scheduled Coenzyme Q10 (Ubidecarenone) (Coq-10), 1 CAP PO DAILY Dextromethorphan-Guaifenesin (Mucinex Dm), 1 TAB PO Q12 Doxycycline Monohydrate (Monodox), 100 MG PO BID Fluticasone Prop/Salmeterol (Advair Diskus 500/50 60 Dose), 1 PUFF INH BID Home O2 Therapy (Oxygen), 3-4 LITERS NA CONT Prednisone (Prednisone), 10 MG PO DAILY Tiotropium [place] (Spiriva Handihaler), 1 CAP INH QAM Scheduled PRN Acetaminophen (Tylenol), 500 MG PO BID PRN for Pain Acetylcysteine (Acetylcysteine), 2 ML INH TID PRN for RN Albuterol Hfa (Ventolin Hfa), 2 PUFFS INH Q4H PRN for SOB/Wheezing Hydrocodone/Acetaminophen 7.5MG/325MG ([place] 7.5MG/325MG), 15 ML PO Q4 PRN for Pain Ipratropium-Albuterol (Duoneb), 1 TREATMENT INH Q6H PRN for SOB/Wheezing Magic Swizzle (Magic Swizzle - SUCRALFA/ALUM/MAG/DIPHEN/LIDO), 3-4 TSP PO ACHS PRN for SORE THROAT Review of Systems Gastrointestinal: GI Comments: occ bleeding from hemorroids Oral: Symptoms: No Problems Other Oral Symptoms: " sometimes it hurts in my throat when I swallow " Respiratory: Symptoms: Productive Cough Respiratory Comments: " I am coughing a lot more " Sputum Character: white sputum Other Respiratory: wears o 2 at 3.0 liters NC Urinary: Symptoms: Nocturia Comments: nocturia times 5 , " I drink a lot " Skin: Symptoms: No Problems Other Skin Symptoms: " my skin is dry and thin " Physical Exam Vital Signs Date Time Temp Pulse Resp B/P (MAP) Pulse Ox O2 Delivery O2 Flow Rate FiO2 05/03/17 08:41 36.6 80 20 114/76 97 Fatigue: None General Appearance: no apparent distress Eyes: normal inspection, EOMI ENT: normal ENT inspection, hearing grossly normal, pharynx normal Neck: no adenopathy, thyroid normal Respiratory/Chest: no respiratory distress, no accessory muscle use, + decreased breath sounds, + wheezing Cardiovascular: regular rate, rhythm (very mild wheeze.), no JVD, no murmur Extremities: no pedal edema Neurologic/Psychiatric: no motor/sensory deficits, alert, normal mood/affect Skin: warm/dry Lymphatic: no adenopathy Additional Exam Notes: We obtained permission to proceed with a nasopharyngolaryngoscopy. We first apply afrin/lidocaine combination spray to the nares for local anesthesia. The scope was then inserted into the nostril. The nasal cavity and nasopharynx were visualized and no abnormalilities were noted. The scope was then advanced into the oropharynx and the base of tongue, epiglottis and vallecula were well visualized with no abnormalities. The scope was further advanced into the larynx and edema was noted involving the right supraglottic region including the right AE fold/pyriform sinus. Healing ulcers still noted in the entire larynx bilaterally. Difficult to assess if tumor was present. There was no restricted motion of the vocal cords. No lesions or masses were noted. The scope was slowly retracted and the patient tolerated the procedure well. Pain Management Patient Reports Pain: Yes Patient Preferred Pain Scale: 0 - 10 Initial Pain Intensity: 4 Pain Management Plan Pain occurs with swallowing. With use of the Lortab elixir this does improve. He also has MBXC. Laboratory Laboratory Results: not applicable Pathology Pathology Results: not applicable Imaging Imaging Studies: not applicable Assessment & Plan Plan: Continue regular follow-up with Dr. Gan in medical oncology. A PET scan has been scheduled for 07/10/2017. He has been clear with Dr. Hayes . He'll continue follow-up with his primary care physician. Today we completed a cancer survivorship care plan. A copy to was given to the patient. He was given a survivorship booklet. We asked him to return to our office in 5 months. We will ask him to try to alternate visits with Dr. Hayes. He may call our office if he has any questions or concerns. Assessment & Plan (Attending) I agree with note created by Gillian Salinas PA-C. I reviewed the patient's chart and information with her. I have examined and evaluated the patient. I reviewed relevant clinical information and answered the patient's and/or family' s questions. PRODUCTION ASSEMBLER Total Time In Follow-Up I spent 20 minutes speaking to the patient performing examination. I spent 15 minutes reviewing information in completing this note. [place] Total Time (Attending) In Follow-Up I spent 30 minutes examining (including NPL exam) and counseling the patient. I spent 15 minutes completing this note. PRODUCTION ASSEMBLER Copy To Lázaro Hayes M.D.; Ezra Gan M.D.; Delta Esp[place] M.D. ([facility])
== END | disposition home or self-care (01) ==
LOC: C.ONC 08:28
PROVIDERS: ATTEND Physician Assistant Medical
DX: Z08 Encounter for follow-up examination after completed treatment for malignant neoplasm (principal); Z92.3 Personal history of irradiation; Z85.89 Personal history of malignant neoplasm of other organs and systems

== ENCOUNTER → 2017-07-18 | Outpatient (CLI) | payer OTHER ==
[~2017-07-18] MED LIST changes: -lortab elixir PO
[2017-07-18 11:34] LABS: PTT PATIENT 27.3 SECONDS (21.0-31.0)
== END | disposition home or self-care (01) ==
LOC: C.LAB 16:45
PROVIDERS: ATTEND Internal Medicine Hematology
DX: D68.311 Acquired hemophilia (principal)

== ENCOUNTER 2019-04-11 11:07 | Inpatient (IN) ==
[2019-04-11] MEDS ORDERED: ALBUT/IPRATROP 3MG/0.5MG NEB 3 ML VIAL INH STA (11:42)
[2019-04-11 12:00] LABS: Basophils # (auto) 0.01 K/uL (0-0.2); Basophils % (auto) 0.1 %; Eosinophils # (auto) 0.01 K/uL (0-0.5); Eosinophils % (auto) 0.1 %; Hematocrit (blood only) 47.4 % (42-52); Hemoglobin 14.4 g/dL (14.0-18.0); Immature Granulocytes # (auto) 0.03 K/uL (0.00-0.02); Immature Granulocytes % (auto) 0.2 %; Lymphocytes # (auto) 0.66 K/uL (1.2-3.4); Lymphocytes % (auto) 5.2 %; Mean Corpuscular Hemoglobin 29.2 pg (25-34); Mean Corpuscular Hgb Conc 30.4 g/dL (32-36); Mean Corpuscular Volume 96.1 fL (80-100); Mean Platelet Volume 10.3 fL (7.4-10.4); Monocytes # (auto) 1.15 K/uL (0.11-0.59); Monocytes % (auto) 9.1 %; Neutrophils # (auto) 10.81 K/uL (1.4-6.5); Neutrophils % (auto) 85.3 %; Platelet Count 174 K/uL (130-400); RDW Coefficient of Variation 15.4 % (11.5-14.5); RDW Standard Deviation 54.3 fL (36.4-46.3); Red Blood Count 4.93 M/uL (4.7-6.1); White Blood Count 12.67 K/uL (4.8-10.8)
--- NOTE | 2019-04-11 12:03 | XRay Report ---
XR chest 1V portable CLINICAL HISTORY: Dyspnea COMPARISON STUDY: 04/09/2016 FINDINGS: Mild stable cardiomegaly. Chronic interstitial changes throughout both hemithoraces. No foc al infiltrate. IMPRESSION: Chronic interstitial/fibrotic change. No acute process. ACT 112: Negative or not required by law. The above report was generated using voice recognition software. It may contain grammatical, syntax or spelling errors. Electronically signed by: Guerrero Edward M.D. 04/11/2019 12:02 PM
[2019-04-11 12:17] LABS: Alanine Aminotransferase < 6 U/L (12-78); Albumin Level 3.3 gm/dl (3.4-5.0); Aspartate Aminotransferase 22 U/L (15-37); BUN Creatinine Ratio 18.3 (10-20); Blood Urea Nitrogen 10 mg/dl (7-18); Calcium 8.8 mg/dl (8.5-10.1); Carbon Dioxide 37 mmol/L (21-32); Chloride 95 mmol/L (98-107); Creatinine Clr Calc Pharmacy 115.5 ml/min; Est GFR (African American) 118.9; Est GFR (Non-African American) 102.6; Glucose 97 mg/dl (70-99); Magnesium 1.8 mg/dl (1.8-2.4); Potassium 4.3 mmol/L (3.5-5.1); Sodium 135 mmol/L (136-145)
--- NOTE | 2019-04-11 12:20 | Emergency Department Note ---
Entered by Abiola Ramachandran acting as a scribe for History of Present Illness General Chief complaint: Shortness of Breath/Dyspnea Stated complaint: COUGH - SHORTNESS OF BREATH Time Seen by Provider: 04/11/19 11:42 Source: patient Limitations: no limitations History of Present Illness Provider complaint: Shortness of breath Onset (ago): week(s) 2 Location: chest Pain Consistency: + other (worsening ) Quality: + constant Exacerbated By: + other (exertion) Associated symptoms: + cough and + shortness of breath; no fever/chills The patient is a 74 year old male with past medical history of COPD, cancer of supraglottis, who presents to the ED with complaints of worsening shortness of breath that started 2 weeks ago. The patient reports he has a cough. He notes he was getting blood work today when he felt very short of breath. The patient states his shortness of breath is worsened with exertion. He denies chills or fever. Home Medications Home Medications Medication Instructions Recorded Confirmed Type albuterol sulfate 90 mcg/actuation 2 puffs INHALATION Q4H PRN #1 gm 11/20/18 04/11/19 History aerosol inhaler fluticasone 500 mcg-salmeterol 50 1 puffs INHALATION BID #1 ea 11/20/18 04/11/19 History mcg/dose blistr powdr for inhalation ibandronate 150 mg tablet 150 mg PO .COMPLEX #3 tab 02/09/19 04/11/19 Rx guaifenesin [Mucinex] 1,200 mg PO BID 04/11/19 04/11/19 History prednisone 5 mg PO BID 04/11/19 04/11/19 History tiotropium bromide 1 cap INHALATION QAM 04/11/19 04/11/19 History Allergies Allergy/AdvReac Type Severity Reaction Status Date / Time No Known Drug Allergies Allergy Verified 04/11/19 11:42 Past Med/Surg History Medical History Acquired hemophilia Cholesteatoma Glucose intolerance Pneumonia Squamous cell carcinoma of larynx Supraventricular tachycardia Surgical History S/P T&A (status post tonsillectomy and adenoidectomy) Family History Other Coronary heart disease Stroke Social History Preferred Language: Hebrew Communication Ability: Effective 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 and A total of 10 systems reviewed and were otherwise negative Physical Exam Vital Signs Vital Signs - 24 hr 04/11/19 11:17 04/11/19 11:30 04/11/19 12:14 Temperature 36.8 C Temperature Source Oral Pulse Rate 131 H Pulse Rate [Right Finger] 110 H Pulse Rhythm [Right Finger] Respiratory Rate 32 H 18 Respiratory Effort / Characteristics Spontaneous Respiratory Depth Blood Pressure 131/77 Blood Pressure [Right Arm] Blood Pressure Mean 95 Blood Pressure Mean [Right Arm] Blood Pressure Position [Right Arm] Pulse Oximetry 79 L 84 L 93 Oxygen Delivery Method Nasal Cannula Oxymask Oxymask Oxygen Flow Rate 4 4 6 Sepsis Recent Fever Within 48 Hours No Sepsis New/Unexplained Change in Mental Status No Sepsis Action Taken by Nursing No Action Required Oxygen Flow Rate - Titration 7 Pulse Oximetry Post Tiitration 93 04/11/19 12:43 04/11/19 13:44 04/11/19 14:12 Temperature Temperature Source Pulse Rate Pulse Rate [Right Finger] 111 H 105 H Pulse Rhythm [Right Finger] Regular Respiratory Rate 22 24 Respiratory Effort / Characteristics Non-Labored Spontaneous Spontaneous Respiratory Depth Normal Normal Blood Pressure Blood Pressure [Right Arm] 141/80 H 120/78 Blood Pressure Mean Blood Pressure Mean [Right Arm] 100 92 Blood Pressure Position [Right Arm] Lying Pulse Oximetry 93 89 L 90 Oxygen Delivery Method Oxymask Oxymask Oxymask Oxygen Flow Rate 4 6 5 Sepsis Recent Fever Within 48 Hours Sepsis New/Unexplained Change in Mental Status Sepsis Action Taken by Nursing Oxygen Flow Rate - Titration Pulse Oximetry Post Tiitration CONSTITUTIONAL/VITAL SIGNS: Reviewed / noted above. GENERAL: Non-toxic in appearance. INTEGUMENTARY: Warm, dry, and [place]. HEAD: Normocephalic. EYES: without scleral icterus or trauma. ENT/OROPHARYNX: clear and moist. LYMPHADENOPATHY/NECK: Is supple without lymphadenopathy or meningismus. RESPIRATORY: Scattered wheezes throughout with diminished breath sounds. Moderately increased work of breathing. CARDIOVASCULAR: Regular rate and rhythm. GI/ABDOMEN: Soft and nontender. No organomegaly or pulsatile mass. No rebound or guarding. Normal bowel sounds. EXTREMITIES: Warm and well perfused. BACK: No CVA tenderness. NEUROLOGICAL: Intact without focal deficits. PSYCHIATRIC: normal affect. MUSCULOSKELETAL: Normally developed with good muscle tone. Procedures ABG Interpretation ABG Interpretation 1: Interpretation: normal Additional Comments: The patient has a normal acid-base status but is hypercarbic and hypoxic on his ABG. Course Course 1149: The patient was evaluated in room C9. A complete history and physical exam was performed. 1305: I discussed the patient's [facility] The patient will be evaluated for further management. 1310: Upon reevaluation, the patient is resting comfortably. I discussed laboratory and radiographic results with him. The patient verbalized agreement of the treatment plan. The patient will be evaluated for further management and care. Administered Medications Ioversol (Optiray 320 125ml) 120 ml IV ONCE PRN PRN Reason: Interaction Checking Stop: 04/15/19 12:31 Last Admin: 04/11/19 12:33 Dose: 120 ml Documented by: [id number] Discontinued Medications Albuterol (Duoneb) 3 ml INH NOW STA Stop: 04/11/19 11:43 Last Admin: 04/11/19 12:14 Dose: 3 ml Documented by: [id number] Ceftriaxone Sodium (Rocephin) 1,000 mg in 50 mls @ 100 mls/hr IV NOW STA Stop: 04/11/19 12:52 Last Infusion: 04/11/19 13:23 Dose: 0 mls/hr Documented by: [id number] Admin: 04/11/19 12:38 Dose: 100 mls/hr Documented by: [id number] Azithromycin 500 mg/ Dextrose 255 mls @ 125 mls/hr IV ONE ONE Stop: 04/11/19 14:25 Last Admin: 04/11/19 13:23 Dose: 125 mls/hr Documented by: [id number] Methylprednisolone (Solumedrol) 125 mg IV NOW STA Stop: 04/11/19 12:27 Last Admin: 04/11/19 12:38 Dose: 125 mg Documented by: [id number] Medical Decision Making Differential Diagnosis Differential diagnosis: Etiologies such as infections, reactive airway disease, pneumonia, pneumothorax, COPD, CHF, cardiac ischemia, pulmonary embolism, musculoskeletal, gastrointestinal, as well as others were entertained. Medical Records Attestation: I reviewed the patient's medical records. Home Medications Current Medication List: was personally reviewed by me Laboratory Data Attestation: I reviewed the patient's lab results. Result diagrams: 04/11/19 11:35 04/11/19 11:35 Lab Results 04/11/19 04/11/19 04/11/19 Range/Units 11:35 11:35 11:35 WBC 12.67 H (4.8-10.8) K/uL RBC 4.93 (4.7-6.1) M/uL Hgb 14.4 (14.0-18.0) g/dL Hct 47.4 (42-52) % MCV 96.1 (80-100) fL MCH 29.2 (25-34) pg MCHC 30.4 L (32-36) g/dL RDW Std Deviation 54.3 H (36.4-46.3) fL RDW Coeff of Lila 15.4 H (11.5-14.5) % Plt Count 174 (130-400) K/uL MPV 10.3 (7.4-10.4) fL Immature Gran % (Auto) 0.2 % Neut % (Auto) 85.3 % Lymph % (Auto) 5.2 % Austin % (Auto) 9.1 % Eos % (Auto) 0.1 % Baso % (Auto) 0.1 % Immature Gran # (Auto) 0.03 H (0.00-0.02) K/uL Neut # (Auto) 10.81 H (1.4-6.5) K/uL Lymph # (Auto) 0.66 L (1.2-3.4) K/uL Austin # (Auto) 1.15 H (0.11-0.59) K/uL Eos # (Auto) 0.01 (0-0.5) K/uL Baso # (Auto) 0.01 (0-0.2) K/uL PT 10.3 (9.0-12.0) Seconds INR 1.0 (0.9-1.1) APTT 29.5 (21.0-31.0) Seconds PTT Ratio 1.1 D-Dimer 430 (0-500) ug/L FEU ABG pH (7.35-7.45) ABG pCO2 (35-46) mmHg ABG pO2 (80-95) mm/Hg ABG HCO3 (19-24) mmol/L ABG O2 Saturation (90-95) % ABG Base Excess (-9-1.8) mEq/L Jose Test (Pos) Barometric Pressure mm/Hg Oxygen Given Sodium 135 L (136-145) mmol/L Potassium 4.3 (3.5-5.1) mmol/L Chloride 95 L (98-107) mmol/L Carbon Dioxide 37 H (21-32) mmol/L Anion Gap 3.0 (3-11) BUN 10 (7-18) mg/dl Creatinine 0.56 L (0.6-1.4) mg/dl Est Cr Clr Drug Dosing 115.5 ml/min Est GFR ( Amer) 118.9 Est GFR (Non-Af Amer) 102.6 BUN/Creatinine Ratio 18.3 (10-20) Glucose 97 (70-99) mg/dl POC Lactic Acid Eder (0.90-1.70) mmol/L Calcium 8.8 (8.5-10.1) mg/dl Magnesium 1.8 (1.8-2.4) mg/dl Total Bilirubin 0.7 (0.2-1) mg/dl AST 22 (15-37) U/L ALT < 6 L (12-78) U/L Alkaline Phosphatase 129 H (45-117) U/L Troponin I < 0.015 (0-0.045) ng/ml Total Protein 7.5 (6.4-8.2) gm/dl Albumin 3.3 L (3.4-5.0) gm/dl Globulin 4.2 H (2.5-4.0) gm/dl Albumin/Globulin Ratio 0.8 L (0.9-2) Influenza Type A (PCR) (Neg) Influenza Type B (PCR) (Neg) 04/11/19 04/11/19 04/11/19 Range/Units 11:35 12:00 12:18 WBC (4.8-10.8) K/uL RBC (4.7-6.1) M/uL Hgb (14.0-18.0) g/dL Hct (42-52) % MCV (80-100) fL MCH (25-34) pg MCHC (32-36) g/dL RDW Std Deviation (36.4-46.3) fL RDW Coeff of Lila (11.5-14.5) % Plt Count (130-400) K/uL MPV (7.4-10.4) fL Immature Gran % (Auto) % Neut % (Auto) % Lymph % (Auto) % [place] % (Auto) % Eos % (Auto) % Baso % (Auto) % Immature Gran # (Auto) (0.00-0.02) K/uL Neut # (Auto) (1.4-6.5) K/uL Lymph # (Auto) (1.2-3.4) K/uL Austin # (Auto) (0.11-0.59) K/uL Eos # (Auto) (0-0.5) K/uL Baso # (Auto) (0-0.2) K/uL PT (9.0-12.0) Seconds INR (0.9-1.1) APTT (21.0-31.0) Seconds PTT Ratio D-Dimer (0-500) ug/L FEU ABG pH 7.38 (7.35-7.45) ABG pCO2 64 H (35-46) mmHg ABG pO2 76 L (80-95) mm/Hg ABG HCO3 37 H (19-24) mmol/L ABG O2 Saturation 95.0 (90-95) % ABG Base Excess 9.0 H (-9-1.8) mEq/L Jose Test Pos (Pos) Barometric Pressure 725.0 mm/Hg Oxygen Given 4 Sodium (136-145) mmol/L Potassium (3.5-5.1) mmol/L Chloride (98-107) mmol/L Carbon Dioxide (21-32) mmol/L Anion Gap (3-11) BUN (7-18) mg/dl Creatinine (0.6-1.4) mg/dl Est Cr Clr Drug Dosing ml/min Est GFR ( Amer) Est GFR (Non-Af Amer) BUN/Creatinine Ratio (10-20) Glucose (70-99) mg/dl POC Lactic Acid Eder 0.71 L (0.90-1.70) mmol/L Calcium (8.5-10.1) mg/dl Magnesium (1.8-2.4) mg/dl Total Bilirubin (0.2-1) mg/dl AST (15-37) U/L ALT (12-78) U/L Alkaline Phosphatase (45-117) U/L Troponin I Cancelled (0-0.045) ng/ml Total Protein (6.4-8.2) gm/dl Albumin (3.4-5.0) gm/dl Globulin (2.5-4.0) gm/dl Albumin/Globulin Ratio (0.9-2) Influenza Type A (PCR) (Neg) Influenza Type B (PCR) (Neg) 04/11/19 Range/Units 13:20 WBC (4.8-10.8) K/uL RBC (4.7-6.1) M/uL Hgb (14.0-18.0) g/dL Hct (42-52) % MCV (80-100) fL MCH (25-34) pg MCHC (32-36) g/dL RDW Std Deviation (36.4-46.3) fL RDW Coeff of Lila (11.5-14.5) % Plt Count (130-400) K/uL MPV (7.4-10.4) fL Immature Gran % (Auto) % Neut % (Auto) % Lymph % (Auto) % [place] % (Auto) % Eos % (Auto) % Baso % (Auto) % Immature Gran # (Auto) (0.00-0.02) K/uL Neut # (Auto) (1.4-6.5) K/uL Lymph # (Auto) (1.2-3.4) K/uL [place] # (Auto) (0.11-0.59) K/uL Eos # (Auto) (0-0.5) K/uL Baso # (Auto) (0-0.2) K/uL PT (9.0-12.0) Seconds INR (0.9-1.1) APTT (21.0-31.0) Seconds PTT Ratio D-Dimer (0-500) ug/L FEU ABG pH (7.35-7.45) ABG pCO2 (35-46) mmHg ABG pO2 (80-95) mm/Hg ABG HCO3 (19-24) mmol/L ABG O2 Saturation (90-95) % ABG Base Excess (-9-1.8) mEq/L Jose Test (Pos) Barometric Pressure mm/Hg Oxygen Given Sodium (136-145) mmol/L Potassium (3.5-5.1) mmol/L Chloride (98-107) mmol/L Carbon Dioxide (21-32) mmol/L Anion Gap (3-11) BUN (7-18) mg/dl Creatinine (0.6-1.4) mg/dl Est Cr Clr Drug Dosing ml/min Est GFR ( Amer) Est GFR (Non-Af Amer) BUN/Creatinine Ratio (10-20) Glucose (70-99) mg/dl POC Lactic Acid Eder (0.90-1.70) mmol/L Calcium (8.5-10.1) mg/dl Magnesium (1.8-2.4) mg/dl Total Bilirubin (0.2-1) mg/dl AST (15-37) U/L ALT (12-78) U/L Alkaline Phosphatase (45-117) U/L Troponin I (0-0.045) ng/ml Total Protein (6.4-8.2) gm/dl Albumin (3.4-5.0) gm/dl Globulin (2.5-4.0) gm/dl Albumin/Globulin Ratio (0.9-2) Influenza Type A (PCR) Neg for Influ A (Neg) Influenza Type B (PCR) Neg for Influ B (Neg) Imaging Data Radiologist's Impression: Radiology results as stated below per my review and the radiologist's interpretation: CT angio chest PE protocol CT DOSE: 377.88 mGy.cm HISTORY: Dyspnea Dyspnea TECHNIQUE: Multiaxial CT images of the chest were performed following the intravenous administration of contrast to evaluate the pulmonary arteries. Maximal intensity projection images were also obtained. A dose lowering technique was utilized adhering to the principles of ALARA. COMPARISON STUDY: 04/09/2016. PET scan 07/10/2017 FINDINGS: Thoracic aorta shows minimal atherosclerotic change. Pulmonary vasculature enhances appropriately. There are findings of slightly progressive mediastinal adenopathy compared to the patient's prior PET scan. Precarinal node has increased to 2.3 cm maximum dimension. Normal smaller hilar as well as aortopulmonary window nodes are present. The mid and upper lungs are considered clear. There is a be a small superimposed right and to a lesser extent left basilar parenchymal infiltrative process. Ther e are no regions of consolidation. IMPRESSION: 1. No evidence for pulmonary embolus. 2. Interval development of a right and to a lesser extent left basilar minimal parenchymal infiltrative process. 3. Mildly progressive mediastinal and hilar adenopathy compared to the PET scan dated 07/10/2017. ACT 112: Negative or not required by law. The above report was generated using voice recognition software. It may contain grammatical, syntax or spelling errors. Electronically signed by: Guerrero Edward M.D. 04/11/2019 12:42 PM XR chest 1V portable CLINICAL HISTORY: Dyspnea COMPARISON STUDY: 04/09/2016 FINDINGS: Mild stable cardiomegaly. Chronic interstitial changes throughout both hemithoraces. No focal infiltrate. IMPRESSION: Chronic interstitial/fibrotic change. No acute process. ACT 112: Negative or not required by law. The above report was generated using voice recognition software. It may contain grammatical, syntax or spelling errors. Electronically signed by: Guerrero Edward M.D. 04/11/2019 12:02 PM ECG Data Attestation: I personally reviewed and interpreted this ECG as follows: Indication: + SOB/dyspnea Rate (beats per minute): 114 Rhythm: + sinus tachycardia ECG Intervals/blocks: + Normal QT-c ECG ST segments: no ST elevation ECG Findings: no PVCs Blood Pressure Blood Pressure Findings: Normal blood pressure Blood Pressure Disposition: did not require urgent referral MDM Narrative This is a 74-year-old male who presents to the ED with a chief complaint of shortness of breath. The patient has a history of COPD. He reports a cold and cough productive of yellow sputum for about a week. He states that he noticed that his breathing became more difficult over the last several days and his pulse ox was reading in the 70s at home. The patient uses 4 L of oxygen at home. His triage pulse ox was 79% on 4 L. The patient is noted to be tachycardic with a heart rate of 130 and a respiratory rate of 32. He is saturating 93% on 7 L facemask. The patient's physical exam reveals scattered bilateral wheezes. He has increased work of breathing. A chest x-ray did not show any acute process. White blood cell count was 12.62. EKG showed a sinus tach at a rate of 114. Chemistry panel was unremarkable. Troponin is negative. ABG reveals a normal acid-base status with hypercarbia and hypoxia on oxygen. A CT scan of the chest reveals no PE but there is bilateral lower lobe pneumonia. The patient was given a DuoNeb treatment. He was also ordered IV Zithromax and IV Rocephin as well as IV Solu-Medrol. The patient will be seen by the hospitalist for further evaluation and care. Impression & Plan Acute exacerbation of chronic obstructive airways disease, Hypoxia, Pneumonia Discharge Plan Visit Data Chief Complaint: Shortness of Breath/Dyspnea Stated Complaint: COUGH - SHORTNESS OF BREATH ED Provider: Jc Hermosillo Discharge Problem: Acute exacerbation of chronic obstructive airways disease, Hypoxia, Pneumonia Patient Disposition: Being Evaluated by Hospitalist Condition: Fair Forms Stand Alone Forms: My [facility], Important Visit Information Prescriptions Prescriptions: No Action ibandronate 150 mg tablet 150 mg PO .COMPLEX Qty: 3 RF: 3 fluticasone propion-salmeterol 500-50 mcg/dose blister with device 1 puffs inhalation BID Qty: 1 RF: 0 albuterol sulfate 90 mcg/actuation HFA aerosol inhaler 2 puffs inhalation Q4H PRN (Reason: Shortness Of Breath) Qty: 1 RF: 0 guaifenesin [Mucinex] 1,200 mg Tablet Extended Release 12hr 1,200 mg PO BID RF: 0 tiotropium bromide 18 mcg capsule, w/inhalation device 1 cap inhalation QAM RF: 0 prednisone 5 mg tablet 5 mg PO BID RF: 0 Referrals Referrals: Delta España MD [Primary Care Provider] - Discharge Problem: Pneumonia Qualifiers: Pneumonia type: due to unspecified organism Laterality: bilateral Lung location: lower lobe of lung Qualified Code(s): J18.9 - Pneumonia, unspecified organism The scribe's documentation has been prepared under my direction and personally reviewed by me in its entirety. I confirm that the note above accurately ref lects all work, treatment, procedures, and medical decision making performed by me.
[2019-04-11 12:22] LABS: Albumin Globulin Ratio 0.8 (0.9-2); Alkaline Phosphatase 129 U/L (45-117); Bilirubin,Total 0.7 mg/dl (0.2-1); Globulin 4.2 gm/dl (2.5-4.0); Total Protein 7.5 gm/dl (6.4-8.2); Troponin I < 0.015 ng/ml (0-0.045)
[2019-04-11] MEDS ORDERED: cefTRIAXone SODIUM 1,000 MG/50 ML BAG IV STA (12:23)
[2019-04-11] MEDS ORDERED: AZITHROMYCIN 500 MG in DEXTROSE 5% 250 ML IV ONE (12:23)
[2019-04-11] MEDS ORDERED: methylPREDNISolone 125 MG/2 ML VIAL IV STA (12:26)
[2019-04-11 12:28] LABS: HCO3 ABG 37 mmol/L (19-24); PCO2 ABG 64 mmHg (35-46); PO2 ABG 76 mm/Hg (80-95); pH ABG 7.38 (7.35-7.45)
[2019-04-11 12:31] LABS: D Dimer 430 ug/L FEU (0-500); Partial Thromboplastin Ratio 1.1; Partial Thromboplastin Time 29.5 Seconds (21.0-31.0); Prothrombin Time 10.3 Seconds (9.0-12.0)
[2019-04-11 12:31] LABS: Allen Test Pos (Pos)
[2019-04-11] MEDS ORDERED: OPTIRAY 320 125ml IV PRN (12:32)
--- NOTE | 2019-04-11 12:44 | CT Scan Report ---
CT angio chest PE protocol CT DOSE: 377.88 mGy.cm HISTORY: Dyspnea Dyspnea TECHNIQUE: Multiaxial CT images of the chest were performed following the intravenous administration of contrast to evaluate the pulmonary arteries. Maximal intensity projection images were also obtaine d. A dose lowering technique was utilized adhering to the principles of ALARA. COMPARISON STUDY: 04/09/2016. PET scan 07/10/2017 FINDINGS: Thoracic aorta shows minimal atherosclerotic change. Pulmonary vasculature enhances appropr iately. There are findings of slightly progressive mediastinal adenopathy compared to the patient's prior PET scan. Precarinal node has increased to 2.3 cm maximum dimension. Normal smaller hilar as well as aor topulmonary window nodes are present. The mid and upper lungs are considered clear. There is a be a small superimposed right and to a lesse r extent left basilar parenchymal infiltrative process. There are no regions of consolidation. IMPRESSION: 1. No evidence for pulmonary embolus. 2. Interval development of a right and to a lesser extent left basilar minimal parenchymal infiltrati ve process. 3. Mildly progressive mediastinal and hilar adenopathy compared to the PET scan dated 07/10/2017. ACT 112: Negative or not required by law. The above report was generated using voice recognition software. It may contain grammatical, syntax or spelling errors. Electronically signed by: Guerrero Edward M.D. 04/11/2019 12:42 PM
--- NOTE | 2019-04-11 13:17 | History & Physical Report ---
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 Pt follows with Dr Ventura In ER afebrile, peak: 131 down to 110, RR: 32 down to 20, BP: 131/77, 79% on 4 L oxygen nasal cannula up to 93% on 6 L oxygen mask WBC: 12, POC lactic acid: 0.7, CO2: 37, negative troponin, negative influenza swab ABG: pH: 7.38, PCO2: 64, PO2: 76, HCO3: 37 (VBG from 2017 with CO2: 62) CXR: Chronic interstitial/fibrotic change. No acute process. CTA CHEST: No PE. Interval development of a right and to a lesser extent left basilar minimal parenchymal infiltrative process. Mildly progressive mediastinal and hilar adenopathy compared to the PET scan dated 07/10/2017. -In ER given DuoNeb, Rocephin, Zithromax, Solu-Medrol 125 IV -Patient probable chronic CO2 retainer. Does not have any acute confusion -Blood culture pending -Xopenex/Atrovent nebs scheduled -Continue Advair, Mucinex -Hold chronic prednisone -Solu-Medrol 40 mg IV Q8H -Rocephin, Zithromax -Continue chronic oxygen, 89-94% goal, avoid over titration of oxygen -Currently does not require BiPAP, will closely monitor -CBC, BMP in am -Encouraged complete smoking cessation (4) Sinus tachycardia: Probable secondary to underlying infection and respiratory distress -Monitor (5) Squamous cell carcinoma of larynx: History vocal cords, squamous cell carcinoma s/p chemo, radiation which was completed in 03/2017 Follows with [facility] [place] Otolaryngology Head and Neck Surgery - Dr Floyd DVT Prophylaxis -Lovenox SQ DNR/DNI as per discussion with pt Follows with Dr España for routine care Pt was seen and care coordinated with Dr Echols. 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 Patient reports for the past week has had increased cough with productive yellow sputum. He reports chronic cough of clear sputum. Patient states increased shortness of breath today and increased wheezing. He has home pulse oximeter and reports his oxygen saturations are usually 90-93% on his chronic 3.5-4 L oxygen and this morning oxygen saturations were in the 70s%. Patient states chronically uses his albuterol inhaler twice a day. Use albuterol inhaler this morning with minimal relief. Denies chills or known fever. Reports had his influenza vaccine this season. Reports grandson had cough. Reports prior heavy smoker and now still smokes 1 cigarette every 2 days. Denies diaphoresis, N/V/D/C, PHILIP, dizziness, syncope, vision changes, neck pain, CP, orthopnea, palpitations, hemoptysis, sore throat, choking, otalgia, rhinorrhea, abdominal pain, paresthesias, weakness, extremity weakness, extremity edema, rashes, urinary symptoms. Allergies Allergy/AdvReac Type Severity Reaction Status Date / Time No Known Drug Allergies Allergy Verified 04/11/19 11:42 Home Medications Home Medications Medication Instructions Recorded Confirmed Type albuterol sulfate 90 mcg/actuation 2 puffs INHALATION Q4H PRN #1 gm 11/20/18 04/11/19 History aerosol inhaler fluticasone 500 mcg-salmeterol 50 1 puffs INHALATION BID #1 ea 11/20/18 04/11/19 History mcg/dose blistr powdr for inhalation ibandronate 150 mg tablet 150 mg PO .COMPLEX #3 tab 02/09/19 04/11/19 Rx guaifenesin [Mucinex] 1,200 mg PO BID 04/11/19 04/11/19 History prednisone 5 mg PO BID 04/11/19 04/11/19 History tiotropium bromide 1 cap INHALATION QAM 04/11/19 04/11/19 History Past Med/Surg History Medical History Acquired hemophilia Cholesteatoma Glucose intolerance Pneumonia Squamous cell carcinoma of larynx Supraventricular tachycardia Surgical History S/P T&A (status post tonsillectomy and adenoidectomy) Family History Other Coronary heart disease Stroke Social History Preferred Language: Belarusian Communication Ability: Effective Sales And Marketing Agent Required: No Beliefs That Will Affect Care: None marital status: Current Living Situation: Spouse current occupational status: retired Other Information That Helps Us Care for You: No Feels Safe at Home: Yes Safety Concerns: Feels Safe At This Time Smoking Status: Current some day smoker Tobacco Type: cigarettes ; Cigarettes Per Day: 2 to 3 a day ; Do You Dip or Chew Tobacco: No ; Second Hand Exposure: No ; Tobacco Cessation Education Requested by Patient: No Hx Alcohol Use: No Hx Substance Use: No Review of Systems Review of Systems: All systems reviewed & are unremarkable except as noted in HPI & below Physical Exam Physical Exam: General: no acute distress, chronic ill appearing, non-toxic appearance, WDWN Head: normocephalic, atraumatic Eyes: PERRL, EOM's intact, conjunctiva non-injected, anicteric ENT: normal inspection external ears, nose, mucous membranes moist; hoarse voice Neck: supple, trachea midline Lungs: Diminished breath sounds throughout, + wheezing throughout ,+ rhonchi bilateral bases; R: 22, currently on 4L oxygen mask, no accessory muscle use, able to speak in sentences CV: Tachycardia, 104, regular, no murmur, no pretibial edema Abd: normal BS, soft, non-tender Ext: no cyanosis, no calf tenderness Neuro: A&O x 3, no focal deficits noted, normal affect Skin: warm, dry Results & Data Vital Signs (Past 12 Hours) Vital Signs Temp Pulse Pulse Resp BP BP Pulse Ox 04/11/19 12:43 111 H 22 141/80 H 93 04/11/19 12:14 110 H 18 93 04/11/19 11:30 84 L 04/11/19 11:17 36.8 C 131 H 32 H 131/77 79 L Laboratory Results Short CBC 04/11/19 Range/Units 11:35 WBC 12.67 H (4.8-10.8) K/uL Hgb 14.4 (14.0-18.0) g/dL Hct 47.4 (42-52) % Plt Count 174 (130-400) K/uL BMP 04/11/19 11:35 Sodium 135 L Potassium 4.3 Chloride 95 L Carbon Dioxide 37 H BUN 10 Creatinine 0.56 L Glucose 97 Calcium 8.8 Cardiac Enzymes 04/11/19 04/11/19 Range/Units 11:35 11:35 Troponin I < 0.015 Cancelled (0-0.045) ng/ml Liver Function 04/11/19 Range/Units 11:35 Total Bilirubin 0.7 (0.2-1) mg/dl AST 22 (15-37) U/L ALT < 6 L (12-78) U/L Alkaline Phosphatase 129 H (45-117) U/L Albumin 3.3 L (3.4-5.0) gm/dl Diagnostic Findings CXR: IMPRESSION: Chronic interstitial/fibrotic change. No acute process. CTA CHEST: IMPRESSION: 1. No evidence for pulmonary embolus. 2. Interval development of a right and to a lesser extent left basilar minimal parenchymal infiltrative process. 3. Mildly progressive mediastinal and hilar adenopathy compared to the PET scan dated 07/10/2017. ECG Rate (beats per minute): 114 Rhythm: sinus tachycardia Code Status & VTE Plan VTE Prophylaxis Plan VTE Prophylaxis will be ordered: Yes Supervising Physician Co-Signing Physician Notes Pt was seen and examined. Agreed with Kellen DEL RIO exam assessment and plan. 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 Pt said that he has been having yellowish productive cough associated with SOB. He said that his oxygen saturation dropped in the 70's this morning. CTA chest showed interval development of a right and to a lesser extent left basilar minimal parenchymal infiltrative process. Mildly progressive mediastinal and hilar adenopathy compared to the PET scan dated 07/10/2017. Influenza PCR negative. Received IV Zithromax and Rocephin in the ER, will continue abx. Continue solumedrol 40mg IV q8h and neb treatment. Continue oxygen supplement. Blood cx collected in the ER pending. Will monitor closely. MD Kinza (1) Pneumonia Laterality: bilateral Lung location: lower lobe of lung Pneumonia type: due to unspecified organism Qualified Code(s): J18.9 - Pneumonia, unspecified organism
[2019-04-11 14:20] LABS: Influenza A virus by PCR Neg for Influ A (Neg); Influenza B virus by PCR Neg for Influ B (Neg)
[2019-04-11] MEDS ORDERED: XOPENEX/ATROVENT 0.63mg/0.5MG NEB COMBO NEB PRN (16:34)
[2019-04-11] MEDS ORDERED: ACETAMINOPHEN 325 MG TAB PO PRN (16:34)
[2019-04-11] MEDS ORDERED: LEVALBUTEROL HCL 0.63 MG/3 ML NEB NEB PRN (16:34)
[2019-04-11] MEDS ORDERED: IPRATROPIUM BROMIDE NEB SOLN 0.02% 2.5 ML VIAL INH PRN (16:34)
[2019-04-11] MEDS: ENOXAPARIN INJ 40 MG/0.4 ML SYR SQ SCH (18:11)
[2019-04-11] MEDS ORDERED: XOPENEX/ATROVENT 1.25mg/0.5MG NEB COMBO NEB SCH (19:00)
[2019-04-11] MEDS: IPRATROPIUM BROMIDE NEB SOLN 0.02% 2.5 ML VIAL INH SCH (19:34)
[2019-04-11] MEDS: methylPREDNISolone 40 MG in SYRINGE 0 ML IV SCH (19:44)
[2019-04-11] MEDS: LEVALBUTEROL 1.25MG/0.5ML NEB INH SCH (20:30)
[2019-04-11] MEDS: guaiFENesin 600 MG TABCR PO SCH (20:45)
[2019-04-11] MEDS: FLUTICASONE/SALMETEROL (ADVAIR) 500/50 INH 14 PUFF INH SCH (20:45)
[2019-04-12] MEDS: LEVALBUTEROL 1.25MG/0.5ML NEB INH SCH ×4 (00:34→19:12)
[2019-04-12] MEDS: IPRATROPIUM BROMIDE NEB SOLN 0.02% 2.5 ML VIAL INH SCH ×4 (00:34→19:12)
[2019-04-12] MEDS: methylPREDNISolone 40 MG in SYRINGE 0 ML IV SCH ×3 (03:52→20:18)
[2019-04-12 06:08] LABS: Hematocrit (blood only) 45.6 % (42-52); Hemoglobin 13.5 g/dL (14.0-18.0); Immature Granulocytes # (auto) 0.01 K/uL (0.00-0.02); Immature Granulocytes % (auto) 0.1 %; Lymphocytes # (auto) 0.38 K/uL (1.2-3.4); Lymphocytes % (auto) 5.2 %; Mean Corpuscular Hemoglobin 28.4 pg (25-34); Mean Corpuscular Hgb Conc 29.6 g/dL (32-36); Mean Platelet Volume 10.1 fL (7.4-10.4); Monocytes # (auto) 0.16 K/uL (0.11-0.59); Monocytes % (auto) 2.2 %; Neutrophils % (auto) 92.5 %; Platelet Count 183 K/uL (130-400); RDW Coefficient of Variation 15.3 % (11.5-14.5); RDW Standard Deviation 53.6 fL (36.4-46.3); Red Blood Count 4.75 M/uL (4.7-6.1); White Blood Count 7.25 K/uL (4.8-10.8)
[2019-04-12 06:31] LABS: BUN Creatinine Ratio 20.9 (10-20); Calcium 9.3 mg/dl (8.5-10.1); Creatinine Clr Calc Pharmacy 102.7 ml/min; Est GFR (African American) 113.3; Est GFR (Non-African American) 97.8; Potassium 4.6 mmol/L (3.5-5.1)
[2019-04-12] MEDS: FLUTICASONE/SALMETEROL (ADVAIR) 500/50 INH 14 PUFF INH SCH ×2 (07:34→20:20)
[2019-04-12] MEDS: guaiFENesin 600 MG TABCR PO SCH ×2 (07:34→20:20)
[2019-04-12] MEDS: cefTRIAXone SODIUM 1,000 MG in DEXTROSE 5% 50 ML IV SCH (08:45)
[2019-04-12] MEDS: AZITHROMYCIN 500 MG in DEXTROSE 5% 250 ML IV SCH (09:32)
--- NOTE | 2019-04-12 12:45 | Hospitalist Progress Note ---
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 Acute COPD exacerbation Acute on chronic respiratory failure with hypoxia Chronic oxygen dependency CTA CHEST: No PE. Interval development of a right and to a lesser extent left basilar minimal parenchymal infiltrative process. Mildly progressive mediastinal and hilar adenopathy compared to the PET scan dated 07/10/2017. Blood cultures: Pending Continue duo nebs, antibiotics, Solu-Medrol Continue home inhalers Pulmonary hygiene Titrate oxygen to keep oxygen saturations 88-92% Counseled to quit smoking (4) Sinus tachycardia: Probable secondary to above Monitor (5) Squamous cell carcinoma of larynx: H/O Vocal cords, squamous cell carcinoma S/P chemotherapy, radiation which was completed in 03/2017 Follows with [facility] [place] Otolaryngology Head and Neck Surgery - Dr Floyd Also followed with Dr.Nilesh Gan and Dr.Veeral Gan DVT Px: Lovenox SQ Code Status DNR/DNI Disposition Follows with Dr España for routine care Subjective Patient is seen and examined at bedside States feeling better today less Cough, shortness of breath Denies any chest pain, dizziness, nausea, abdominal pain Family at bedside Offers no other complaints Review of Systems Review of Systems: All systems reviewed & are unremarkable except as noted in HPI & below Physical Exam Physical Exam: Physical Exam: Vitals signs as noted above General Appearance: Thin, elderly, no apparent distress Head: normocephalic, Atraumatic Eyes: normal inspection, EOMI Neck: supple, Trachea midline Respiratory/Chest: Decreased breath sounds, bilateral rhonchi, No accessory muscle use Cardiovascular: S1, S2, No murmur Abdomen/GI:Soft, Non tender, Bowel sounds present Extremities/Musculoskelatal:normal inspection, no edema Neurologic/Psych:AAOX3, grossly no focal neurological deficits Skin: normal color, warm Results & Data Vital Signs (Past 12 Hours) Vital Signs Temp Pulse Pulse Resp BP Pulse Ox 04/12/19 11:38 36.8 C 94 H 22 121/68 90 04/12/19 07:32 36.3 C L 89 20 134/75 91 04/12/19 07:27 80 04/12/19 06:51 91 H 18 93 04/12/19 04:54 36.5 C 77 20 124/73 92 Laboratory Results Short CBC 04/12/19 Range/Units 05:31 WBC 7.25 (4.8-10.8) K/uL Hgb 13.5 L (14.0-18.0) g/dL Hct 45.6 (42-52) % Plt Count 183 (130-400) K/uL BMP 04/12/19 05:31 Sodium 138 Potassium 4.6 Chloride 97 L Carbon Dioxide 38 H BUN 13 Creatinine 0.63 Glucose 130 H Calcium 9.3 (1) Pneumonia Laterality: bilateral Lung location: lower lobe of lung Pneumonia type: due to unspecified organism Qualified Code(s): J18.9 - Pneumonia, unspecified organism
--- NOTE | 2019-04-12 12:54 | Electrocardiogram Report ---
Test Reason : Blood Pressure : / mmHG Vent. Rate : 114 BPM Atrial Rate : 114 BPM P-R Int : 144 ms QRS Dur : 090 ms QT Int : 320 ms P-R-T Axes : 072 081 073 degrees QTc Int : 441 ms Sinus tachycardia Possible Left atrial enlargement Borderline ECG When compared with ECG of 11-DEC-2016 11:01, No significant change was found Confirmed by Kiran Kearney ([id number]) on 04/12/2019 12:54:19 PM Referred By: REFERRED SELF Confirmed By:Kiran Kearney
[2019-04-12] MEDS: ENOXAPARIN INJ 40 MG/0.4 ML SYR SQ SCH (18:35)
[2019-04-13] MEDS: IPRATROPIUM BROMIDE NEB SOLN 0.02% 2.5 ML VIAL INH SCH ×4 (01:04→19:36)
[2019-04-13] MEDS: LEVALBUTEROL 1.25MG/0.5ML NEB INH SCH ×3 (01:05→13:41)
[2019-04-13] MEDS: methylPREDNISolone 40 MG in SYRINGE 0 ML IV SCH ×3 (03:35→19:54)
[2019-04-13 07:39] LABS: BUN Creatinine Ratio 24.9 (10-20); Calcium 8.9 mg/dl (8.5-10.1); Creatinine Clr Calc Pharmacy 107.1 ml/min; Est GFR (African American) 116.4; Est GFR (Non-African American) 100.4; Magnesium 2.2 mg/dl (1.8-2.4); Potassium 4.4 mmol/L (3.5-5.1)
[2019-04-13] MEDS: cefTRIAXone SODIUM 1,000 MG in DEXTROSE 5% 50 ML IV SCH (08:25)
[2019-04-13] MEDS: guaiFENesin 600 MG TABCR PO SCH ×2 (08:25→19:53)
[2019-04-13] MEDS: FLUTICASONE/SALMETEROL (ADVAIR) 500/50 INH 14 PUFF INH SCH ×2 (08:25→19:54)
[2019-04-13] MEDS: AZITHROMYCIN 500 MG in DEXTROSE 5% 250 ML IV SCH (09:06)
[2019-04-13] MEDS ORDERED: COUGH DROP (SUGAR FREE) LOZ 24 LOZ/1 BOX BUCCAL PRN (11:59)
--- NOTE | 2019-04-13 15:34 | Electrocardiogram Report ---
Test Reason : Blood Pressure : / mmHG Vent. Rate : 109 BPM Atrial Rate : 109 BPM P-R Int : 150 ms QRS Dur : 090 ms QT Int : 328 ms P-R-T Axes : 069 073 061 degrees QTc Int : 441 ms Sinus tachycardia Otherwise normal ECG When compared with ECG of 11-APR-2019 11:26, No significant change was found Confirmed by Kiran Kearney ([id number]) on 04/13/2019 3:33:34 PM Referred By: REFERRED SELF Confirmed By:Kiran Kearney
[2019-04-13] MEDS: ENOXAPARIN INJ 40 MG/0.4 ML SYR SQ SCH (17:06)
[2019-04-13] MEDS ORDERED: LEVALBUTEROL HCL 0.63 MG/3 ML NEB NEB PRN (17:58)
--- NOTE | 2019-04-13 18:04 | Hospitalist Progress Note ---
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 Acute COPD exacerbation Acute on chronic respiratory failure with hypoxia Chronic oxygen dependency CTA CHEST: No PE. Interval development of a right and to a lesser extent left basilar minimal parenchymal infiltrative process. Mildly progressive mediastinal and hilar adenopathy compared to the PET scan dated 07/10/2017. Blood cultures: No growth to date Continue duo nebs, antibiotics, Solu-Medrol Titrate down IV steroids as able Continue home inhalers Pulmonary hygiene Titrate oxygen to keep oxygen saturations 88-92% Counseled to quit smoking Slowly improving (4) Sinus tachycardia: Secondary to above Monitor (5) Squamous cell carcinoma of larynx: H/O Vocal cords, squamous cell carcinoma S/P chemotherapy, radiation which was completed in 03/2017 Follows with [facility] [place] Otolaryngology Head and Neck Surgery - Dr Floyd Also followed with Dr.Nilesh Gan and Dr.Veeral Gan DVT Px: Lovenox SQ Code Status DNR/DNI Disposition Follows with Dr España for routine care Subjective Patient is seen and examined at bedside Symptomatically feels better Cough continues to improve Denies any shortness of breath today Also denies chest pain, dizziness, nausea, abdominal pain Sinus tachycardia noted Review of Systems Review of Systems: All systems reviewed & are unremarkable except as noted in HPI & below Physical Exam Physical Exam: Physical Exam: Vitals signs as noted above General Appearance: Thin, elderly, no apparent distress Head: normocephalic, Atraumatic Eyes: normal inspection, EOMI Neck: supple, Trachea midline Respiratory/Chest: Decreased breath sounds, bilateral scattered rhonchi Cardiovascular: S1, S2, No murmur, Sinus tachycardia Abdomen/GI:Soft, Non tender, Bowel sounds present Extremities/Musculoskelatal:normal inspection, no edema Neurologic/Psych:AAOX3, grossly no focal neurological deficits Skin: normal color, warm Results & Data Vital Signs (Past 12 Hours) Vital Signs Temp Pulse Pulse Resp BP Pulse Ox 04/13/19 16:02 102 H 04/13/19 15:49 36.2 C L 104 H 18 146/77 H 91 04/13/19 13:44 97 H 18 90 04/13/19 12:08 36.6 C 103 H 20 123/69 90 04/13/19 08:06 36.5 C 97 H 20 143/83 H 91 04/13/19 07:46 91 H 04/13/19 06:59 83 20 92 Laboratory Results [facility] 04/13/19 06:30 Sodium 137 Potassium 4.4 Chloride 98 Carbon Dioxide 37 H BUN 15 Creatinine 0.59 L Glucose 120 H Calcium 8.9 (1) Pneumonia Laterality: bilateral Lung location: lower lobe of lung Pneumonia type: due to unspecified organism Qualified Code(s): J18.9 - Pneumonia, unspecified o rganism
[2019-04-13] MEDS: LEVALBUTEROL HCL 0.63 MG/3 ML NEB NEB SCH (19:36)
[2019-04-14] MEDS: LEVALBUTEROL HCL 0.63 MG/3 ML NEB NEB SCH ×4 (00:40→19:05)
[2019-04-14] MEDS: IPRATROPIUM BROMIDE NEB SOLN 0.02% 2.5 ML VIAL INH SCH ×4 (00:41→19:05)
[2019-04-14] MEDS: cefTRIAXone SODIUM 1,000 MG in DEXTROSE 5% 50 ML IV SCH (07:55)
[2019-04-14] MEDS: FLUTICASONE/SALMETEROL (ADVAIR) 500/50 INH 14 PUFF INH SCH ×2 (07:56→20:04)
[2019-04-14] MEDS: guaiFENesin 600 MG TABCR PO SCH ×2 (07:56→20:03)
[2019-04-14] MEDS: methylPREDNISolone 40 MG in SYRINGE 0 ML IV SCH ×2 (07:56→20:03)
[2019-04-14 07:59] LABS: BUN Creatinine Ratio 27.4 (10-20); Calcium 9.1 mg/dl (8.5-10.1); Creatinine Clr Calc Pharmacy 109.4 ml/min; Est GFR (African American) 117.2; Est GFR (Non-African American) 101.1; Potassium 4.4 mmol/L (3.5-5.1)
[2019-04-14] MEDS: AZITHROMYCIN 500 MG in DEXTROSE 5% 250 ML IV SCH (08:37)
[2019-04-14] MEDS ORDERED: POLYETHYLENE (MIRALAX) 17 GM PACK PO PRN (11:57)
[2019-04-14] MEDS: DOCUSATE SODIUM 100 MG CAP PO SCH ×2 (12:14→20:03)
[2019-04-14] MEDS: ENOXAPARIN INJ 40 MG/0.4 ML SYR SQ SCH (18:00)
--- NOTE | 2019-04-14 20:34 | Hospitalist Progress Note ---
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 Acute COPD exacerbation Acute on chronic respiratory failure with hypoxia Chronic oxygen dependency CTA CHEST: No PE. Interval development of a right and to a lesser extent left basilar minimal parenchymal infiltrative process. Mildly progressive mediastinal and hilar adenopathy compared to the PET scan dated 07/10/2017. Blood cultures: No growth to date Continue duo nebs, antibiotics, Solu-Medrol Titrate down IV steroids as able Continue home inhalers Continue Pulmonary hygiene Continue supplemental oxygen Counseled to quit smoking Continue current medications Constipation Started on bowel regimen Encouraged to ambulate (4) Sinus tachycardia: Secondary to above Monitor (5) Squamous cell carcinoma of larynx: H/O Vocal cords, squamous cell carcinoma S/P chemotherapy, radiation which was completed in 03/2017 Follows with [facility] [place]olaryngology Head and Neck Surgery - Dr Floyd Also followed with Dr.Nilesh Gan and Dr.Veeral Gan DVT Px: Lovenox SQ Code Status DNR/DNI Disposition Follows with Dr España for routine care Subjective Patient is seen and examined at bedside Reports constipation Has been productive cough Denies chest pain, SOB, dizziness, nausea, abdominal pain Review of Systems Review of Systems: All systems reviewed & are unremarkable except as noted in HPI & below Physical Exam Physical Exam: Physical Exam: Vitals signs as noted above General Appearance: Thin, elderly, no apparent distress Head: normocephalic, Atraumatic Eyes: normal inspection, EOMI Neck: supple, Trachea midline Respiratory/Chest: Decreased breath sounds, bilateral scattered rhonchi Cardiovascular: S1, S2, No murmur Abdomen/GI:Soft, Non tender, Bowel sounds present Extremities/Musculoskelatal:normal inspection, no edema Neurologic/Psych:AAOX3, grossly no focal neurological deficits Skin: normal color, warm Results & Data Vital Signs (Past 12 Hours) Vital Signs Temp Pulse Pulse Resp BP Pulse Ox 04/14/19 19:05 78 16 94 04/14/19 16:00 82 04/14/19 15:13 36.9 C 89 18 153/80 H 90 04/14/19 13:00 92 H 18 95 04/14/19 12:09 36.6 C 104 H 20 139/81 90 Laboratory Results [facility] 04/14/19 06:55 Sodium 138 Potassium 4.4 Chloride 98 Carbon Dioxide 38 H BUN 16 Creatinine 0.58 L Glucose 100 H Calcium 9.1 (1) Pneumonia Laterality: bilateral Lung location: lower lobe of lung Pneumonia type: due to unspecified organism Qualified Code(s): J18.9 - Pneumonia, unspecified organism
[2019-04-15] MEDS: LEVALBUTEROL HCL 0.63 MG/3 ML NEB NEB SCH ×4 (00:06→19:10)
[2019-04-15] MEDS: IPRATROPIUM BROMIDE NEB SOLN 0.02% 2.5 ML VIAL INH SCH ×4 (00:07→19:10)
[2019-04-15] MEDS: FLUTICASONE/SALMETEROL (ADVAIR) 500/50 INH 14 PUFF INH SCH ×2 (07:52→21:13)
[2019-04-15] MEDS: AZITHROMYCIN 250 MG TAB PO SCH (07:53)
[2019-04-15] MEDS: CEFDINIR 300 MG CAP PO SCH ×2 (07:53→21:14)
[2019-04-15] MEDS: guaiFENesin 600 MG TABCR PO SCH ×2 (07:53→21:14)
[2019-04-15] MEDS: DOCUSATE SODIUM 100 MG CAP PO SCH ×2 (07:53→21:14)
[2019-04-15] MEDS: methylPREDNISolone 40 MG in SYRINGE 0 ML IV SCH (07:54)
--- NOTE | 2019-04-15 12:23 | Hospitalist Progress Note ---
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 Acute COPD exacerbation Acute on chronic respiratory failure with hypoxia Chronic oxygen dependency CTA CHEST: No PE. Interval development of a right and to a lesser extent left basilar minimal parenchymal infiltrative process. Mildly progressive mediastinal and hilar adenopathy compared to the PET scan dated 07/10/2017. Blood cultures: No growth to date Continue duo nebs, antibiotics, Solu-Medrol Titrate down IV steroids as able Continue Pulmonary hygiene with Flutter Continue supplemental oxygen Counseled to quit smoking Desaturates quickly with ambulation Needs 2 Step prior to discharge Consider Pulmonology eval if no improvement Constipation Continue bowel regimen Encouraged to ambulate (4) Sinus tachycardia: Secondary to above Monitor (5) Squamous cell carcinoma of larynx: H/O Vocal cords, squamous cell carcinoma S/P chemotherapy, radiation which was completed in 03/2017 Follows with [facility] [place] Otolaryngology Head and Neck Surgery - Dr Floyd Also followed with Dr.Nilesh Gan and Dr.Veeral Gan DVT Px: Lovenox SQ Code Status DNR/DNI Disposition Follows with Dr España for routine care Needs 2 Step prior to discharge Subjective Patient is seen and examined at bedside Desaturate significantly with ambulation today Cough much better after patient Still has SOB on exertion Will need 2 step prior to discharge Denies chest pain, SOB, dizziness, nausea, abdominal pain Offers no other complaints Review of Systems Review of Systems: All systems reviewed & are unremarkable except as noted in HPI & below Physical Exam Physical Exam: Physical Exam: Vitals signs as noted above General Appearance: Thin, elderly, no apparent distress Head: normocephalic, Atraumatic Eyes: normal inspection, EOMI Neck: supple, Trachea midline Respiratory/Chest: Decreased breath sounds, B/L rhonchi/wheezes Cardiovascular: S1, S2, No murmur Abdomen/GI:Soft, Non tender, Bowel sounds present Extremities/Musculoskelatal:normal inspection, no edema Neurologic/Psych:AAOX3, grossly no focal neurological deficits Skin: normal color, warm Results & Data Vital Signs (Past 12 Hours) Vital Signs Temp Pulse Pulse Resp BP BP Pulse Ox 04/15/19 11:35 36.7 C 100 H 18 136/74 91 04/15/19 07:36 71 04/15/19 07:27 76 18 96 04/15/19 07:00 36.8 C 82 18 148/82 H 95 04/15/19 02:40 36.6 C 88 17 126/81 91 (1) Pneumonia Laterality: bilateral Lung location: lower lobe of lung Pneumonia type: due to unspecified organism Qualified Code(s): J18.9 - Pneumonia, unspecified organism
[2019-04-15] MEDS: ENOXAPARIN INJ 40 MG/0.4 ML SYR SQ SCH (18:00)
[2019-04-16] MEDS: IPRATROPIUM BROMIDE NEB SOLN 0.02% 2.5 ML VIAL INH SCH ×4 (00:43→19:35)
[2019-04-16] MEDS: LEVALBUTEROL HCL 0.63 MG/3 ML NEB NEB SCH ×4 (00:44→19:35)
[2019-04-16] MEDS: CEFDINIR 300 MG CAP PO SCH ×2 (07:26→20:13)
[2019-04-16] MEDS: predniSONE 20 MG TAB PO SCH (07:26)
[2019-04-16] MEDS: guaiFENesin 600 MG TABCR PO SCH ×2 (07:26→20:13)
[2019-04-16] MEDS: AZITHROMYCIN 250 MG TAB PO SCH (07:26)
[2019-04-16] MEDS: FLUTICASONE/SALMETEROL (ADVAIR) 500/50 INH 14 PUFF INH SCH ×2 (07:26→20:12)
[2019-04-16] MEDS: DOCUSATE SODIUM 100 MG CAP PO SCH ×2 (07:27→20:14)
[2019-04-16 08:29] LABS: BUN Creatinine Ratio 28.9 (10-20); Creatinine Clr Calc Pharmacy 100.9 ml/min; Est GFR (African American) 114.1; Est GFR (Non-African American) 98.4; Potassium 4.3 mmol/L (3.5-5.1)
--- NOTE | 2019-04-16 16:08 | Hospitalist Progress Note ---
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 Acute COPD exacerbation Acute on chronic respiratory failure with hypoxia Chronic oxygen dependency CTA CHEST: No PE. Interval development of a right and to a lesser extent left basilar minimal parenchymal infiltrative process. Mildly progressive mediastinal and hilar adenopathy compared to the PET scan dated 07/10/2017. 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, squamous cell carcinoma S/P chemotherapy, radiation which was completed in 03/2017 Follows with [facility] [place] Otolaryngology Head and Neck Surgery - Dr Floyd Also followed with Dr.Nilesh Gan and Dr.Veeral Gan We will keep appointment with oncologist as an outpatient DVT Px: Lovenox SQ Code Status DNR/DNI Disposition Follows with Dr España for routine care Subjective 04/16/2019 Patient was seen and examined in medical floor He complains of ongoing shortness of breath and is not yet ready to go home Denies any chest pain and/or palpitation He has been getting physical therapy Review of Systems Review of Systems: All systems reviewed and are unremarkable except as noted below Constitutional: + weakness Respiratory: + dyspnea on exertion and + wheezing Physical Exam Physical Exam: Lying in bed comfortably with minimal shortness of breath Constitutional: well developed and + ill appearing; no acute distress Eyes: PERRL, conjunctivae normal, anicteric sclerae ENMT: external ear and nose normal, oropharynx normal Neck: trachea midline, no thyromegaly Respiratory: + respiratory distress (Minimal distress at rest) Auscultation: + diminished lung sounds and + wheezes (Mild to moderate wheezing bilaterally) Cardiovascular: Rate/Rhythm: regular rate and regular rhythm Heart Sounds: no murmur Gastrointestinal (Abdomen): Inspection/Auscultation: abdomen normal to inspection and normal bowel sounds Percussion/Palpation: abdomen soft Musculoskeletal: No acute arthritis in any joints Neurologic: moves all extremities; no focal motor deficits Lymphatic: no cervical or axillary lymphadenopathy Results & Data Vital Signs (Past 12 Hours) Vital Signs Temp Pulse Resp BP Pulse Ox 04/16/19 13:18 71 19 96 04/16/19 11:20 36.8 C 97 H 18 118/74 92 04/16/19 07:25 36.8 C 85 18 113/76 96 04/16/19 07:19 75 17 93 Laboratory Results BMP 04/16/19 07:24 Sodium 137 Potassium 4.3 Chloride 99 Carbon Dioxide 36 H BUN 18 Creatinine 0.62 Glucose 78 Calcium 9.0 Medications Administered Current Inpatient Medications Acetaminophen (Tylenol) 650 mg PO Q4H PRN PRN Reason: Pain or Fever Stop: 05/11/19 16:33 Last Admin: 04/13/19 23:10 Dose: 650 mg Documented by: Azithromycin (Zithromax) 500 mg PO DAILY [facility] Stop: 04/17/19 23:59 Last Admin: 04/16/19 07:26 Dose: 500 mg Documented by: Cefdinir (Omnicef Cap) 300 mg PO BID [facility] Stop: 04/18/19 23:59 Last Admin: 04/16/19 07:26 Dose: 300 mg Documented by: Docusate Sodium (Colace) 100 mg PO BID [facility] Stop: 05/14/19 12:29 Last Admin: 04/16/19 07:27 Dose: 100 mg Documented by: Enoxaparin Sodium (Lovenox) 40 mg SQ Q24H [facility] Stop: 05/11/19 17:59 Last Admin: 04/15/19 18:00 Dose: 40 mg Documented by: Guaifenesin (Mucinex) 1,200 mg PO BID [facility] Stop: 05/11/19 20:59 Last Admin: 04/16/19 07:26 Dose: 1,200 mg Documented by: Ipratropium Ophir (Atrovent 0.02% 0.5mg/2.5ml) 0.5 mg INH Q6R [facility] Stop: 02/03/20 18:59 Last Admin: 04/16/19 13:18 Dose: 0.5 mg Documented by: Levalbuterol HCl (Xopenex 0.63 Mg/3 Ml Neb) 0.63 mg NEB Q6R [facility] Stop: 05/13/19 18:59 Last Admin: 04/16/19 13:18 Dose: 0.63 mg Documented by: Levalbuterol HCl (Xopenex 0.63 Mg/3 Ml Neb) 0.63 mg NEB Q2H PRN PRN Reason: Shortness Of Breath Or Wheezing Stop: 05/11/19 16:33 Menthol (Nice) 1 matthew BUCCAL PRN PRN PRN Reason: Sore Throat Stop: 05/13/19 11:58 Polyethylene Glycol (Miralax Powder Packet) 17 gm PO DAILY PRN PRN Reason: Constipation Stop: 05/14/19 11:56 Last Admin: 04/14/19 12:14 Dose: 17 gm Documented by: Prednisone (Prednisone) 40 mg PO DAILY [facility] Stop: 05/16/19 08:59 Last Admin: 04/16/19 07:26 Dose: 40 mg Documented by: Fluticasone/Salmeterol (Advair Diskus 500/50) 1 puffs INH BID [facility] Stop: 05/11/19 20:59 Last Admin: 04/16/19 07:26 Dose: 1 puffs Documented by: (1) Pneumonia Laterality: bilateral Lung location: lower lobe of lung Pneumonia type: due to unspecified organism Qualified Code(s): J18.9 - Pneumonia, unspecified organism
[2019-04-16] MEDS: ENOXAPARIN INJ 40 MG/0.4 ML SYR SQ SCH (17:55)
[2019-04-17] MEDS: LEVALBUTEROL HCL 0.63 MG/3 ML NEB NEB SCH ×3 (00:57→13:47)
[2019-04-17] MEDS: IPRATROPIUM BROMIDE NEB SOLN 0.02% 2.5 ML VIAL INH SCH ×3 (00:58→13:48)
[2019-04-17] MEDS: DOCUSATE SODIUM 100 MG CAP PO SCH (07:32)
[2019-04-17] MEDS: FLUTICASONE/SALMETEROL (ADVAIR) 500/50 INH 14 PUFF INH SCH (07:32)
[2019-04-17] MEDS: AZITHROMYCIN 250 MG TAB PO SCH (07:32)
[2019-04-17] MEDS: predniSONE 20 MG TAB PO SCH (07:33)
[2019-04-17] MEDS: CEFDINIR 300 MG CAP PO SCH (07:33)
[2019-04-17] MEDS: guaiFENesin 600 MG TABCR PO SCH (07:33)
--- NOTE | 2019-04-17 11:17 | Hospitalist Progress Note ---
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 Acute COPD exacerbation Acute on chronic respiratory failure with hypoxia Chronic oxygen dependency CTA CHEST: No PE. Interval development of a right and to a lesser extent left basilar minimal parenchymal infiltrative process. Mildly progressive mediastinal and hilar adenopathy compared to the PET scan dated 07/10/2017. Blood cultures: No growth to date Continue duo nebs, antibiotics, Solu-Medrol which were changed to oral prednisone Continue Pulmonary hygiene with Flutter Continue supplemental oxygen Counseled to quit smoking Has been on oxygen with ambulation will not require any 2 steps saturation test before discharge Clinically a lot better today He has been ambulating without any more difficulty Will be discharged home this afternoon Constipation Continue bowel regimen Encouraged to ambulate Bowel movement (4) Sinus tachycardia: Secondary to above Monitor-heart rate is controlled (5) Squamous cell carcinoma of larynx: H/O Vocal cords, squamous cell carcinoma S/P chemotherapy, radiation which was completed in 03/2017 Follows with [facility] [place] Otolaryngology Head and Neck Surgery - Dr Floyd Also followed with Dr.Nilesh Gan and Dr.Veeral Gan We will keep appointment with oncologist as an outpatient DVT Px: Lovenox SQ Code Status DNR/DNI Disposition Follows with Dr España for routine care Will get PCP appointment in 7 days Subjective 04/16/2019 Patient was seen and examined in medical floor He complains of ongoing shortness of breath and is not yet ready to go home Denies any chest pain and/or palpitation He has been getting physical therapy 04/17/2019 Patient was seen and examined in medical floor He has been feeling a lot better today and wants to go home His breathing is better and he has been ambulating reasonably well Review of Systems Review of Systems: All systems reviewed and are unremarkable except as noted below Constitutional: + weakness Respiratory: + dyspnea on exertion and + wheezing Physical Exam Physical Exam: Sitting at the edge of the bed with minimal shortness of breath Constitutional: well developed and + ill appearing; no acute distress Eyes: PERRL, conjunctivae normal, anicteric sclerae ENMT: external ear and nose normal, oropharynx normal Neck: trachea midline, no thyromegaly Respiratory: + respiratory distress (Minimal distress at rest) Auscultation: + diminished lung sounds and + wheezes (Mild to moderate wheezing bilaterally) Cardiovascular: Rate/Rhythm: regular rate and regular rhythm Heart Sounds: no murmur Gastrointestinal (Abdomen): Inspection/Auscultation: abdomen normal to inspection and normal bowel sounds Percussion/Palpation: abdomen soft Musculoskeletal: No acute arthritis involving any joints Neurologic: moves all extremities; no focal motor deficits Lymphatic: no cervical or axillary lymphadenopathy Results & Data Vital Signs (Past 12 Hours) Vital Signs Temp Pulse Pulse Resp BP Pulse Ox 04/17/19 07:44 36.7 C 83 20 120/64 92 04/17/19 07:36 85 18 119/71 04/17/19 07:07 81 18 95 04/17/19 03:46 36.5 C 91 H 18 120/76 92 04/17/19 01:15 76 04/17/19 01:00 89 18 90 Medications Administered Current Inpatient Medications Acetaminophen (Tylenol) 650 mg PO Q4H PRN PRN Reason: Pain or Fever Stop: 05/11/19 16:33 Last Admin: 04/13/19 23:10 Dose: 650 mg Documented by: Azithromycin (Zithromax) 500 mg PO DAILY [facility] Stop: 04/17/19 23:59 Last Admin: 04/17/19 07:32 Dose: 500 mg Documented by: Cefdinir (Omnicef Cap) 300 mg PO BID [facility] Stop: 04/18/19 23:59 Last Admin: 04/17/19 07:33 Dose: 300 mg Documented by: Docusate Sodium (Colace) 100 mg PO BID [facility] Stop: 05/14/19 12:29 Last Admin: 04/17/19 07:32 Dose: 100 mg Documented by: Enoxaparin Sodium (Lovenox) 40 mg SQ Q24H [facility] Stop: 05/11/19 17:59 Last Admin: 04/16/19 17:55 Dose: 40 mg Documented by: Guaifenesin (Mucinex) 1,200 mg PO BID [facility] Stop: 05/11/19 20:59 Last Admin: 01/10/20 07:33 Dose: 1,200 mg Documented by: Ipratropium Moore (Atrovent 0.02% 0.5mg/2.5ml) 0.5 mg INH Q6R [facility] Stop: 05/11/19 18:59 Last Admin: 04/17/19 07:07 Dose: 0.5 mg Documented by: Levalbuterol HCl (Xopenex 0.63 Mg/3 Ml Neb) 0.63 mg NEB Q6R [facility] Stop: 05/13/19 18:59 Last Admin: 04/17/19 07:06 Dose: 0.63 mg Documented by: Levalbuterol HCl (Xopenex 0.63 Mg/3 Ml Neb) 0.63 mg NEB Q2H PRN PRN Reason: Shortness Of Breath Or Wheezing Stop: 05/11/19 16:33 Menthol (Nice) 1 matthew BUCCAL PRN PRN PRN Reason: Sore Throat Stop: 05/13/19 11:58 Polyethylene Glycol (Miralax Powder Packet) 17 gm PO DAILY PRN PRN Reason: Constipation Stop: 05/14/19 11:56 Last Admin: 04/14/19 12:14 Dose: 17 gm Documented by: Prednisone (Prednisone) 40 mg PO DAILY [facility] Stop: 05/16/19 08:59 Last Admin: 04/17/19 07:33 Dose: 40 mg Documented by: Fluticasone/Salmeterol (Advair Diskus 500/50) 1 puffs INH BID [facility] Stop: 05/11/19 20:59 Last Admin: 04/17/19 07:32 Dose: 1 puffs Documented by: (1) Pneumonia Laterality: bilateral Lung location: lower lobe of lung Pneumonia type: due to unspecified organism Qualified Code(s): J18.9 - Pneumonia, unspecified organism
--- NOTE | 2019-04-18 07:58 | Discharge Summary ---
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 Patient reports for the past week has had increased cough with productive yellow sputum. He reports chronic cough of clear sputum. Patient states increased shortness of breath today and increased wheezing. He has home pulse oximeter and reports his oxygen saturations are usually 90-93% on his chronic 3.5-4 L oxygen and this morning oxygen saturations were in the 70s%. Patient states chronically uses his albuterol inhaler twice a day. Use albuterol inhaler this morning with minimal relief. Denies chills or known fever. Reports had his influenza vaccine this season. Reports grandson had cough. Reports prior heavy smoker and now still smokes 1 cigarette every 2 days. Denies diaphoresis, N/V/D/C, PHILIP, dizziness, syncope, vision changes, neck pain, CP, orthopnea, palpitations, h emoptysis, sore throat, choking, otalgia, rhinorrhea, abdominal pain, paresthesias, weakness, extremity weakness, extremity edema, rashes, urinary symptoms. Admission Exam Per Admitting Provider Physical Exam: General: no acute distress, chronic ill appearing, non-toxic appearance, WDWN Head: normocephalic, atraumatic Eyes: PERRL, EOM's intact, conjunctiva non-injected, anicteric ENT: normal inspection external ears, nose, mucous membranes moist; hoarse voice Neck: supple, trachea midline Lungs: Diminished breath sounds throughout, + wheezing throughout ,+ rhonchi bilateral bases; R: 22, currently on 4L oxygen mask, no accessory muscle use, able to speak in sentences CV: Tachycardia, 104, regular, no murmur, no pretibial edema Abd: normal BS, soft, non-tender Ext: no cyanosis, no calf tenderness Neuro: A&O x 3, no focal deficits noted, normal affect Skin: warm, dry Principal Diagnosis Acute exacerbation of COPD Discharge Exam Constitutional well developed and + ill appearing; no acute distress Eyes PERRL, conjunctivae normal, anicteric sclerae ENMT external ear and nose normal, oropharynx normal Neck trachea midline, no thyromegaly Respiratory + respiratory distress (Minimal distress at rest) Auscultation: + diminished lung sounds and + wheezes (Mild to moderate wheezing bilaterally) Cardiovascular Rate/Rhythm: regular rate and regular rhythm Heart Sounds: no murmur Gastrointestinal (Abdomen) Inspection/Auscultation: abdomen normal to inspection and normal bowel sounds Percussion/Palpation: abdomen soft Neurologic moves all extremities; no focal motor deficits Lymphatic no cervical or axillary lymphadenopathy Discharge Data Allergies Allergy/AdvReac Type Severity Reaction Status Date / Time No Known Drug Allergies Allergy Verified 04/11/19 11:42 Consultations 04/11/19 16:34 Consult Case Management - Discharge Planning Routine Ordered Studies 04/11/19 11:42 CT angio chest PE protocol Stat Hospital Course (1) Acute exacerbation of chronic obstructive airways disease: (2) Pneumonia: (3) Hypoxia: Patient is a 74 yr male with H/O COPD on chronic 3.5-4L oxygen via nasal cannula, 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 Acute COPD exacerbation Acute on chronic respiratory failure with hypoxia Chronic oxygen dependency CTA CHEST: No PE. Interval development of a right and to a lesser extent left basilar minimal parenchymal infiltrative process. Mildly progressive mediastinal and hilar adenopathy compared to the PET scan dated 07/10/2017. Blood cultures: No growth to date Continue duo nebs, antibiotics, Solu-Medrol which were changed to oral prednisone Continue Pulmonary hygiene with Flutter Continue supplemental oxygen Counseled to quit smoking Has been on oxygen with ambulation will not require any 2 steps saturation test before discharge Clinically a lot better today He has been ambulating without any more difficulty Will be discharged home this afternoon Constipation Continue bowel regimen Encouraged to ambulate Bowel movement (4) Sinus tachycardia: Secondary to above Monitor-heart rate is controlled (5) Squamous cell carcinoma of larynx: H/O Vocal cords, squamous cell carcinoma S/P chemotherapy, radiation which was completed in 03/[address] [facility] [place] Otolaryngology Head and Neck Surgery - Dr Floyd Also followed with Dr.Nilesh Gan and Dr.Veeral Gan We will keep appointment with oncologist as an outpatient DVT Px: Lovenox SQ Code Status DNR/DNI Disposition Follows with Dr España for routine care Will get PCP appointment in 7 days Total Time Total Time Spent Total Time Spent (In Minutes): 35 minutes Total Time Includes: Examination of the Patient, Discharge Planning, Medication Reconciliation and Communication With Other Providers Discharge Plan Discharge Items Patient Disposition: Home - Self-Care Reason For Visit: COPD EXAC Discharge Diagnosis: Acute exacerbation of COPD Condition on Discharge: Fair Activity: Resume your previous activity Non-emergency contact: Primary Care Provider Call non-emergency contact if: you have any medication questions and your symptoms worsen Follow-up/Referrals: Delta España MD [Primary Care Provider] - 04/20/19 11:05 am Diet: Regular Addtl Attending Provider Instructions: Please take precaution to avoid an attack of COPD exacerbation as advised Pending Studies at Discharge: No Stand-Alone Forms: My [employer], Smoking Cessation Medications and DC Order Prescriptions: New cefdinir 300 mg Capsule 300 mg PO BID 4 Days Qty: 8 RF: 0 prednisone 10 mg tablet 10 mg PO UD Qty: 35 RF: 0 Continued ibandronate 150 mg tablet 150 mg PO .COMPLEX Qty: 3 RF: 3 fluticasone propion-salmeterol 500-50 mcg/dose blister with device 1 puffs inhalation BID Qty: 1 RF: 0 albuterol sulfate 90 mcg/actuation HFA aerosol inhaler 2 puffs inhalation Q4H PRN (Reason: Shortness Of Breath) Qty: 1 RF: 0 guaifenesin [Mucinex] 1,200 mg Tablet Extended Release 12hr 1,200 mg PO BID RF: 0 tiotropium bromide 18 mcg capsule, w/inhalation device 1 cap inhalation QAM RF: 0 prednisone 5 mg tablet 5 mg PO BID RF: 0 Discharge Orders: Discharge Order (Routine); Ordered 04/17/19 Ordered By: Dinah Siu Admission Data Admit Date/Time: 04/11/19 13:14 Attending Provider: Dinah Siu Admit Provider: Brooklynn Echols Primary Care Provider: Delta España Other Providers: Malik Johnson Other Interventions: Discharge Summary Assessment (RN) Last Done: 04/17/19 14:00 DC Date/Time DO NOT enter until pt leaves facility: 04/17/19 14:20
== END 2019-04-17 14:20 | disposition home or self-care (01) | DRG 190 ==
LOC: ED 11:07 → SUATTDRO 13:14 → 2N 13:14

== ENCOUNTER 2019-12-07 07:00 | Inpatient (IN) ==
--- NOTE | 2019-12-07 07:43 | Emergency Department Note ---
History of Present Illness General Chief complaint: Fall Time Seen by Provider: 12/07/19 07:04 Source: patient and RN notes reviewed Mode of arrival: EMS Limitations: no limitations History of Present Illness Provider complaint: Fall Maximum Pain Intensity: 4 This patient is a 74-year-old male who presents emergency department with complaints of forehead laceration, nasal contusion and elbow contusions/abrasions after tripping over his slippers today while getting ready for a doctor's appointment. Patient states he fell directly onto his face but attempted to break his fall, sustaining skin tears to the bilateral elbows/forearm. Patient denies any loss of consciousness or neck discomfort. Patient denies any chest pain or palpitations prior to the fall. He does wear O2 at all times. He did not take his medications this morning. He is complaining of a headache currently. Family at the bedside states his skin is "very thin" from chronic prednisone therapy. He denies any anticoagulant or aspirin therapy. Patient states tetanus vaccination was up-to-date as of 2017. Home Medications Home Medications Medication Instructions Recorded Confirmed Type albuterol sulfate 90 mcg/actuation 2 puffs INHALATION Q4H PRN #1 gm 11/20/18 12/07/19 History aerosol inhaler fluticasone 500 mcg-salmeterol 50 1 puffs INHALATION BID #1 ea 11/20/18 12/07/19 History mcg/dose blistr powdr for inhalation Mucinex 1,200 mg PO BID 04/11/19 12/07/19 History tiotropium bromide 18 mcg capsule 1 cap INHALATION QAM #30 puffs 10/15/19 12/07/19 Rx with inhalation device prednisone 5 mg tablet 5 mg PO BID #180 tab 10/29/19 12/07/19 Rx albuterol sulfate 2.5 mg INH Q4H PRN 12/07/19 12/07/19 History ibandronate 150 mg PO MO 12/07/19 12/07/19 History Allergies Allergy/AdvReac Type Severity Reaction Status Date / Time No Known Drug Allergies Allergy Verified 12/07/19 10:04 Past Med/Surg History Medical History Acquired hemophilia Factor VIII deficiency Cholesteatoma Chronic hypoxemic respiratory failure Factor VIII (functional) deficiency Glucose intolerance Pneumonia Squamous cell carcinoma of larynx Supraventricular tachycardia Tobacco use Surgical History Hx of colonoscopy S/P T&A (status post tonsillectomy and adenoidectomy) Family History Other Coronary heart disease Stroke Social History Smoking Status: Current every day smoker Cigarettes Per Day: 2 to 3 a day; Second Hand Exposure: No; Hx Alcohol Use: No Hx Substance Use: No Preferred Language: Guinean Communication Ability: Effective Junior Data Analyst Required: No Beliefs That Will Affect Care: None marital status: Current Living Situation: Spouse current occupational status: retired Feels Safe at Home: Yes Review of Systems See HPI for pertinent positives & negatives. and A total of 10 systems reviewed and were otherwise negative Physical Exam Vital Signs Vital Signs - 24 hr 12/07/19 07:10 12/07/19 08:51 12/07/19 09:30 Temperature 36.6 C Temperature Source Oral Pulse Rate 102 H Pulse Rate [Finger] 85 91 H Respiratory Rate 16 20 20 Blood Pressure 147/82 H Blood Pressure [Left Arm] 146/74 H 138/70 Blood Pressure Mean 103 Blood Pressure Mean [Left Arm] 98 92 Pulse Oximetry 97 75 L 96 Oxygen Delivery Method Nasal Cannula Nasal Cannula Oxymask Oxygen Flow Rate 4 4 12 Sepsis Recent Fever Within 48 Hours No Sepsis New/Unexplained Change in Mental Status N/A Sepsis Action Taken by Nursing No Action Required 12/07/19 09:31 12/07/19 10:42 12/07/19 11:23 Temperature Temperature Source Pulse Rate Pulse Rate [Finger] 94 H 94 H Respiratory Rate 22 20 Blood Pressure Blood Pressure [Left Arm] 128/65 130/68 Blood Pressure Mean Blood Pressure Mean [Left Arm] 86 88 Pulse Oximetry 98 96 Oxygen Delivery Method Oxymask Oxymask Oxymask Oxygen Flow Rate 12 4 Sepsis Recent Fever Within 48 Hours Sepsis New/Unexplained Change in Mental Status Sepsis Action Taken by Nursing 12/07/19 12:22 Temperature Temperature Source Pulse Rate Pulse Rate [Finger] 96 H Respiratory Rate 22 Blood Pressure Blood Pressure [Left Arm] 138/77 Blood Pressure Mean Blood Pressure Mean [Left Arm] 97 Pulse Oximetry 97 Oxygen Delivery Method Oxymask Oxygen Flow Rate 4 Sepsis Recent Fever Within 48 Hours Sepsis New/Unexplained Change in Mental Status Sepsis Action Taken by Nursing Vital signs reviewed. General: Chronically ill-appearing 74-year-old male, in no significant distress. HEENT: Nasal contusion with swelling, dried blood at the nares bilaterally. Nasal laceration across the bridge, approximately 1 cm. Larger 3 cm laceration between the eyebrows left greater than right. Positive pain with jaw opening Cardiovascular: Regular rate and rhythm, no extra sounds. Pulmonary: Clear to auscultation bilaterally, increased work of breathing with rhonchi throughout. O2 dependent, switched from nasal cannula to oxygen mask. Abdomen: Soft, nontender, nondistended, positive bowel sounds. Musculoskeletal: Atraumatic, no peripheral edema. Nontender to palpation of the cervical, thoracic and lumbar spines. Neurologic: Patient awake alert and oriented x 3, answers questions appropriately. Skin: Warm, dry, no rash. Lacerations as described above. Multiple contusions/ecchymosis to the face. Large skin tears to the bilateral elbows /forearm. Course Administered Medications Sodium Chloride (Nss 1000ml) 1,000 mls @ 100 mls/hr IV .Q10H ADIEL Stop: 01/06/20 09:14 Last Admin: 12/07/19 09:29 Dose: 100 mls/hr Documented by: [id number] Discontinued Medications Acetaminophen (Acetaminophen 1000 Mg/100 Ml Iv) Confirm Administered Dose 1,000 mg IV .STK-MED ONE Stop: 12/07/19 09:13 Last Admin: 12/07/19 09:17 Dose: Not Given Documented by: [id number] Fentanyl Citrate (Fentanyl Citrate 100 Mcg/2 Ml Vial) 25 mcg IV NOW ONE Stop: 12/07/19 07:48 Last Admin: 12/07/19 08:09 Dose: 25 mcg Documented by: [id number] Ampicillin Sodium/Sulbactam Sodium 3,000 mg/ Sodium Chloride 108 mls @ 200 mls/hr IV NOW STA; Protocol Stop: 12/07/19 09:45 Last Infusion: 12/07/19 10:00 Dose: 0 mls/hr Documented by: [id number] Admin: 12/07/19 09:29 Dose: 200 mls/hr Documented by: [id number] Acetaminophen (Ofirmev) 1,000 mg in 100 mls @ 400 mls/hr IV NOW STA Stop: 12/07/19 09:28 Last Infusion: 12/07/19 09:40 Dose: 0 mls/hr Documented by: [id number] Admin: 12/07/19 09:18 Dose: 400 mls/hr Documented by: [id number] Lidocaine (Lidocaine/Epineph/Tetracaine 1 Ea Syr) 1 ea EXT NOW STA Stop: 12/07/19 07:56 Last Admin: 12/07/19 08:10 Dose: 1 ea Documented by: [id number] Lidocaine (Lidocaine/Epineph/Tetracaine 1 Ea Syr) 1 ea EXT NOW STA Stop: 12/07/19 07:57 Last Admin: 12/07/19 08:10 Dose: 1 ea Documented by: [id number] Lidocaine (Lidocaine/Epineph/Tetracaine 1 Ea Syr) 1 ea EXT NOW STA Stop: 12/07/19 07:57 Last Admin: 12/07/19 08:10 Dose: 1 ea Documented by: [id number] Ondansetron HCl (Ondansetron Inj 2 Mg/Ml 2 Ml Vial) 4 mg IV NOW STA Stop: 12/07/19 07:51 Last Admin: 12/07/19 08:09 Dose: 4 mg Documented by: [id number] Medical Decision Making Differential Diagnosis Differential diagnosis: Facial trauma, intracranial injury, cervical spine injury, intrathoracic injury, intra-abdominal injury, musculoskeletal injury. Medical Records Attestation: I reviewed the patient's medical records. Home Medications Current Medication List: was personally reviewed by me Laboratory Data Attestation: I reviewed the patient's lab results. Result diagrams: 12/07/19 07:54 12/07/19 07:54 Lab Results 12/07/19 12/07/19 12/07/19 Range/Units 07:54 07:54 07:54 WBC 9.07 (4.8-10.8) K/uL RBC 5.08 (4.7-6.1) M/uL Hgb 14.3 (14.0-18.0) g/dL Hct 48.5 (42-52) % MCV 95.5 (80-100) fL MCH 28.1 (25-34) pg MCHC 29.5 L (32-36) g/dL RDW Std Deviation 54.1 H (36.4-46.3) fL RDW Coeff of Lila 15.2 H (11.5-14.5) % Plt Count 147 (130-400) K/uL MPV 10.8 H (7.4-10.4) fL Immature Gran % (Auto) 0.1 % Neut % (Auto) 80.8 % Lymph % (Auto) 7.9 % [place] % (Auto) 10.4 % Eos % (Auto) 0.7 % Baso % (Auto) 0.1 % Neut # (Auto) 7.33 H (1.4-6.5) K/uL Lymph # (Auto) 0.72 L (1.2-3.4) K/uL [place] # (Auto) 0.94 H (0.11-0.59) K/uL Eos # (Auto) 0.06 (0-0.5) K/uL Baso # (Auto) 0.01 (0-0.2) K/uL Immature Gran # (Auto) 0.01 (0.00-0.02) K/uL PT 10.7 (9.0-12.0) Seconds INR 1.0 (0.9-1.1) APTT 26.1 (21.0-31.0) Seconds PTT Ratio 0.9 ABG pH (7.35-7.45) ABG pCO2 (35-46) mmHg ABG pO2 (80-95) mmHg ABG HCO3 (19-24) mmol/L ABG O2 Saturation (90-95) % ABG Base Excess (-9-1.8) mEq/L Jose Test (Pos) Barometric Pressure mm/Hg Oxygen Given Sodium 139 (136-145) mmol/L Potassium 4.7 (3.5-5.1) mmol/L Chloride 95 L (98-107) mmol/L Carbon Dioxide 41 H* (21-32) mmol/L Anion Gap 1.0 L (3-11) BUN 14 (7-18) mg/dl Creatinine 0.52 L (0.6-1.4) mg/dl Est Cr Clr Drug Dosing 116.3 ml/min Est GFR ( Amer) 122.6 Est GFR (Non-Af Amer) 105.8 BUN/Creatinine Ratio 26.3 H (10-20) Glucose 129 H (70-99) mg/dl Calcium 9.4 (8.5-10.1) mg/dl 12/07/19 Range/Units 11:33 WBC (4.8-10.8) K/uL RBC (4.7-6.1) M/uL Hgb (14.0-18.0) g/dL Hct (42-52) % MCV (80-100) fL MCH (25-34) pg MCHC (32-36) g/dL RDW Std Deviation (36.4-46.3) fL RDW Coeff of Lila (11.5-14.5) % Plt Count (130-400) K/uL MPV (7.4-10.4) fL Immature Gran % (Auto) % Neut % (Auto) % Lymph % (Auto) % [place] % (Auto) % Eos % (Auto) % Baso % (Auto) % Neut # (Auto) (1.4-6.5) K/uL Lymph # (Auto) (1.2-3.4) K/uL [place] # (Auto) (0.11-0.59) K/uL Eos # (Auto) (0-0.5) K/uL Baso # (Auto) (0-0.2) K/uL Immature Gran # (Auto) (0.00-0.02) K/uL PT (9.0-12.0) Seconds INR (0.9-1.1) APTT (21.0-31.0) Seconds PTT Ratio ABG pH 7.31 L (7.35-7.45) ABG pCO2 86 H (35-46) mmHg ABG pO2 125 H (80-95) mmHg ABG HCO3 43 H (19-24) mmol/L ABG O2 Saturation 98.1 H (90-95) % ABG Base Excess 12.4 H (-9-1.8) mEq/L Jose Test Pos (Pos) Barometric Pressure 732.6 mm/Hg Oxygen Given 8L Sodium (136-145) mmol/L Potassium (3.5-5.1) mmol/L Chloride (98-107) mmol/L Carbon Dioxide (21-32) mmol/L Anion Gap (3-11) BUN (7-18) mg/dl Creatinine (0.6-1.4) mg/dl Est Cr Clr Drug Dosing ml/min Est GFR ( Amer) Est GFR (Non-Af Amer) BUN/Creatinine Ratio (10-20) Glucose (70-99) mg/dl Calcium (8.5-10.1) mg/dl Imaging Data Radiologist's Impression: XR chest 2V PA/lateral CLINICAL HISTORY: fall, abnormal lung exam COMPARISON STUDY: Chest radiograph and chest CT April 11, 2019. FINDINGS: There is no pneumothorax or pleural effusion. There is mild bibasilar interstitial thickening and opacities. Note is made of mild cardiomegaly. There is pulmonary vascular congestion without evidence for pulmonary edema. Mediastinal contours are stable. IMPRESSION: 1. No pneumothorax. 2. Mild bibasilar opacities and interstitial thickening. 3. Mild cardiomegaly. Pulmonary vascular congestion without overt pulmonary edema ACT 112: Negative or not required by law. Electronically signed by: Isaac Qiu M.D. 12/07/2019 12:07 PM Dictated: 12/07/194 Transcribed: 12/07/191203 CT OF THE HEAD WITHOUT CONTRAST CLINICAL HISTORY: Fall. COMPARISON STUDY: Temporal bone CT August 02, 2014. TECHNIQUE: Helical axial images of the head were obtained without IV contrast. Automated exposure control was utilized for the study. A dose lowering technique was utilized adhering to the principles of ALARA. FINDINGS: No acute intracranial hemorrhage, midline shift or mass effect is present. The ventricular system is unremarkable. The basilar cisterns are patent. No extra-axial collections are present. There are no findings to suggest acute dural sinus thrombosis or acute territorial infarct. There is no calvarial fracture. Left mastoid air cells are partially opacified. Facial contusion is noted. Numerous bilateral acute facial bone fractures are better depicted on the facial bone CT. IMPRESSION: 1. No acute intracranial findings. 2. No calvarial fracture. 3. Multiple facial fractures, better depicted on the facial bone CT. Please see that report for further description. ACT 112: Negative or not required by law. Electronically signed by: Isaac Qiu M.D. 12/07/2019 8:45 AM Dictated: 12/07/19840 Transcribed: 12/07/19840 ADDENDUM Addendum: In addition to the fractures mentioned, there is a subtle fracture involving the posterior wall of the right frontal sinus. There is no associated pneumocephalus. Electronically signed by: Segundo Murdock M.D. 12/07/2019 12:[address] facial bones wo con CT DOSE: 1773.10 mGy.cm CLINICAL HISTORY: Facial pain status post trauma COMPARISON STUDY: No previous studies for comparison. TECHNIQUE: Helical images were acquired in the transverse plane. The study was reviewed and analyzed on the independent 3-D workstation. A dose lowering technique was utilized adhering to the principles of ALARA. There are bilateral pterygoid plate fractures. The zygomatic arches appear intact. Both globes appear intact. There are bilateral orbital floor fractures. There are fractures of the anterior and posterior lateral maxillary beavers bilaterally. There are bilateral nasal fractures. There is a fracture the nasal bridge communicating with the frontal sinus. No mandibular condylar fractures are visualized. There are advanced arthritic changes within the TMJs bilaterally. Note is made of supraglottic edema, possibly secondary to prior radiation therapy. There is a left frontal scalp hematoma IMPRESSION: 1. LeFort II fracture with bilateral pterygoid plate fractures, bilateral orbital floor fractures, and fractures involving the anterior and posterior lateral beavers of both maxillary sinuses. There are also bilateral nasal fractur es as well as a fracture involving the nasal bridge communicating with the frontal sinus. 2. Diffuse supraglottic edema, possibly secondary to prior radiation therapy. ACT 112: Negative or not required by law. Electronically signed by: Segundo Murdock M.D. 12/07/2019 8:57 AM Dictated: 12/07/19 0848 Transcribed: 12/07/19 0848 RIGHT ELBOW 3 VIEWS CLINICAL HISTORY: Fall. Right elbow injury. FINDINGS: 3 views of the right elbow are obtained. No prior studies are available for comparison at the time of dictation. The skeletal structures are osteopenic. No fracture is seen. The joint spaces are maintained. There is no joint effusion. The overlying soft tissues are normal in appearance. IMPRESSION: No acute bony abnormality is identified. Electronically signed by: Harjinder Yuen M.D. 12/07/2019 12:09 PM Dictated: 12/07/19 1206 Transcribed: 12/07/19 1208 XR elbow LT min 3V routine CLINICAL HISTORY: Left elbow pain status post trauma COMPARISON: None. DISCUSSION: No acute fractures or dislocations are visualized. IMPRESSION: No fractures or dislocations identified. ACT 112: Negative or not required by law. Electronically signed by: Segundo Murdock M.D. 12/07/2019 12:06 PM Dictated: 12/07/19 1205 Transcribed: 12/07/[address] SCAN OF THE CERVICAL SPINE CLINICAL HISTORY: Trauma. Fall. History of laryngeal carcinoma. COMPARISON STUDY: Chest CT dated 04/11/2019. PET/CT dated 07/10/2017. TECHNIQUE: CT scan of the cervical spine is performed from the skull base to the upper thoracic spine. Images are reviewed in the axial, sagittal, and coronal planes. IV contrast was not administered for this examination. A dose lowering technique was utilized adhering to the principles of ALARA. FINDINGS: Skeletal structures: The skeletal structures are osteopenic. There is no evidence of fracture or subluxation involving the cervical spine. Vertebral body height is maintained. There is minimal anterolisthesis at C2-C3 and C3-C4. Minimal retrolisthesis is noted at C4-C5. There is straightening of the cervical lordosis with reversal centered at C4. Anterior osteophytes are seen throughout. The odontoid process and lateral masses are intact. The atlantoaxial articulation is preserved noting productive degenerative change. The spinous processes appear intact. Intervertebral discs: Advanced disc space narrowing is seen at all levels between C4-C5 and C6-C7. Moderate disc space narrowing seen at C3-C4. Central canal: Posterior disc osteophyte complexes from C4-C5 through C6-C7 likely contribute to multilevel acquired compromise of the central canal. Soft tissues: The prevertebral and paraspinous soft tissues are within normal limits. Fluid and blood products are seen in the visualized upper pharynx. There is atherosclerotic calcification of the carotid bulbs. There is asymmetric fullness of the right laryngeal soft tissues, best seen on axial image #58 of 96. Calvarium: The visualized calvarium at the skull base appears intact. Brain parenchyma: Partially visualized brain parenchyma the skull base is within normal limits. Sinuses and mastoids: There are bilateral mastoid effusions. Blood fills the partially visualized maxillary sinuses. There are bilateral maxillary sinus fractures, as well as bilateral pterygoid plate fractures. A 7 mm nodular structure is noted in the right middle ear on image #45. Lung apices: Emphysematous change is noted in the upper lobes. Apical scarring is observed. A 4 mm left apical nodule is seen on image #[id number]. IMPRESSION: 1. There is no evidence of fracture or subluxation involving the cervical spine. 2. Osteopenia and spondylotic change as above. 3. There are bilateral maxillary sinus fractures as well as comminuted fractures of the bilateral pterygoid plates. Blood fills the maxillary antra. 4. There is asymmetric fullness of the right laryngeal soft tissues. This is of indeterminant significance. Given the history of laryngeal carcinoma follow-up with direct visualization is recommended. 5. Emphysema. 6. A 4 mm left apical pulmonary nodule is more conspicuous than on the 04/11/[address] Follow-up with a dedicated chest CT in 3 months time is recorded for reassessment. 7. A 7 mm nodular soft tissue structure is noted in the right middle ear. Cholesteatoma could have this appearance and nonemergent ENT follow-up is recommended. ACT 112: Negative or not required by law. Electronically signed by: Harjinder Yuen M.D. 12/07/2019 8:51 AM Dictated: 12/07/1940 Transcribed: 12/07/19839 ECG Data Attestation: I personally reviewed and interpreted this ECG as follows: Indication: + other (fall/trauma) Rate (beats per minute): 95 Rhythm: + sinus with SA ECG [place]: + Normal ECG ST segments: + Nonspecific ST abnormalities ECG Findings: no PACs and no PVCs Blood Pressure Blood Pressure Findings: Elevated blood pressure Blood Pressure Disposition: further management by hospitalist DENISE Dove This patient was evaluated and appeared to be in no significant distress. IV access was obtained and laboratory work was drawn. An order for cardiac monitoring was placed and the patient is noted to be in a sinus rhythm with sinus arrhythmia. EKG reveals no evidence of acute ischemic change. Patient has sustained significant trauma to the face. CT imaging of the head, face and neck was ordered. Patient received IV fentanyl and Zofran prior to imaging. IV hydration was initiated. The patient was found to have a LeFort II fracture. He required additional Zofran after CT for nausea/vomiting. He was converted to an oxygen mask as he became hypoxic with the nasal swelling/edema. Patient was given 3 g of IV Unasyn and additional IV Zofran. Patient's work-up is negative for additional traumatic findings however his facial fractures are extensive. Dr. Doran of [facility] was contacted and evaluated the patient in the emergency department. The patient has severe comorbidities that preclude him from the operating room. Patient's facial lacerations and elbow skin tears were approximated by the residents, Nneka Chong DO. Please see her procedure note for further detail. Patient will require pain management, antibiotics and a soft diet. He does have a 24-hour oxygen requirement. Patient's case was discussed with internal medicine who will evaluate the patient for admission and further management. Dr. Doran has evaluated the patient in the emergency department and will do so again later today. Patient and are aware of the plan and agree. Impression & Plan Extensive facial fractures, COPD (chronic obstructive pulmonary disease), Dependence on supplemental oxygen Discharge Plan Visit Data Chief Complaint: Fall ED Provider: Danna Emmanuel ED Midlevel Provider: Nneka Garcia Discharge Problem: Extensive facial fractures, COPD (chronic obstructive pulmonary disease), Dependence on supplemental oxygen Forms Stand Alone Forms: [facility] Prescriptions Prescriptions: No Action tiotropium bromide 18 mcg capsule, w/inhalation device 1 cap inhalation QAM Qty: 30 RF: 11 fluticasone propion-salmeterol 500-50 mcg/dose blister with device 1 puffs inhalation BID Qty: 1 RF: 0 albuterol sulfate 90 mcg/actuation HFA aerosol inhaler 2 puffs inhalation Q4H PRN (Reason: Shortness Of Breath) Qty: 1 RF: 0 prednisone 5 mg tablet 5 mg PO BID Qty: 180 RF: 3 albuterol sulfate 2.5 mg /3 mL (0.083 %) solution for nebulization 2.5 mg INH Q4H PRN (Reason: shortness of breath or wheezing) RF: 0 ibandronate 150 mg tablet 150 mg PO MO RF: 0 Mucinex 1,200 mg Tablet Extended Release 12hr 1,200 mg PO BID RF: 0 Referrals Referrals: Delta España MD [Primary Care Provider] - Discharge Problem: Extensive facial fractures Qualifiers: Encounter type: initial encounter Fracture type: closed Qualified Code(s): S02.92XA - Unspecified fracture of facial bones, initial encounter for closed fracture COPD (chronic obstructive pulmonary disease) Qualifiers: COPD type: emphysema Emphysema type: other Qualified Code(s): J43.8 - Other emphysema
[2019-12-07] MEDS ORDERED: fentaNYL citrate 100 MCG/2 ML VIAL IV ONE (07:47)
[2019-12-07] MEDS ORDERED: ONDANSETRON INJ 2 MG/ML 2 ML VIAL IV STA (07:50)
[2019-12-07] MEDS ORDERED: LIDOCAINE/EPINEPH/TETRACAINE 1 EA SYR EXT STA ×3 (07:55→07:56)
--- NOTE | 2019-12-07 08:02 | Emergency Department Note ---
ED Visit Note Today I saw this patient and reported my findings with Dr. Emmanuel, who saw and examined the patient separately. Please see her note for history, assessment and plan. . Resident Activity Tracking Resident Involvement: Resident Care Provided Care Provided: Adult ED
[2019-12-07 08:22] LABS: Basophils # (auto) 0.01 K/uL (0-0.2); Basophils % (auto) 0.1 %; Eosinophils # (auto) 0.06 K/uL (0-0.5); Eosinophils % (auto) 0.7 %; Hematocrit (blood only) 48.5 % (42-52); Hemoglobin 14.3 g/dL (14.0-18.0); Immature Granulocytes # (auto) 0.01 K/uL (0.00-0.02); Immature Granulocytes % (auto) 0.1 %; Lymphocytes # (auto) 0.72 K/uL (1.2-3.4); Lymphocytes % (auto) 7.9 %; Mean Corpuscular Hemoglobin 28.1 pg (25-34); Mean Corpuscular Hgb Conc 29.5 g/dL (32-36); Mean Corpuscular Volume 95.5 fL (80-100); Mean Platelet Volume 10.8 fL (7.4-10.4); Monocytes # (auto) 0.94 K/uL (0.11-0.59); Monocytes % (auto) 10.4 %; Neutrophils # (auto) 7.33 K/uL (1.4-6.5); Neutrophils % (auto) 80.8 %; Platelet Count 147 K/uL (130-400); RDW Coefficient of Variation 15.2 % (11.5-14.5); RDW Standard Deviation 54.1 fL (36.4-46.3); Red Blood Count 5.08 M/uL (4.7-6.1); White Blood Count 9.07 K/uL (4.8-10.8)
[2019-12-07 08:33] LABS: BUN Creatinine Ratio 26.3 (10-20); Calcium 9.4 mg/dl (8.5-10.1); Creatinine Clr Calc Pharmacy 116.3 ml/min; Est GFR (African American) 122.6; Est GFR (Non-African American) 105.8; Potassium 4.7 mmol/L (3.5-5.1)
--- NOTE | 2019-12-07 08:46 | CT Scan Report ---
CT OF THE HEAD WITHOUT CONTRAST CLINICAL HISTORY: Fall. COMPARISON STUDY: Temporal bone CT August 02, 2014. TECHNIQUE: Helical axial images of the head were obtained without IV contrast. Automated exposure con trol was utilized for the study. A dose lowering technique was utilized adhering to the principles o f ALARA. FINDINGS: No acute intracranial hemorrhage, midline shift or mass effect is present. The ventricular system is unremarkable. The basilar cisterns are patent. No extra-axial collections are present. Ther e are no findings to suggest acute dural sinus thrombosis or acute territorial infarct. There is no c alvarial fracture. Left mastoid air cells are partially opacified. Facial contusion is noted. Numerou s bilateral acute facial bone fractures are better depicted on the facial bone CT. IMPRESSION: 1. No acute intracranial findings. 2. No calvarial fracture. 3. Multiple facial fractures, better depicted on the facial bone CT. Please see that report for furth er description. ACT 112: Negative or not required by law. Electronically signed by: Isaac Qiu M.D. 12/07/2019 8:45 AM
--- NOTE | 2019-12-07 08:52 | CT Scan Report ---
CT SCAN OF THE CERVICAL SPINE CLINICAL HISTORY: Trauma. Fall. History of laryngeal carcinoma. COMPARISON STUDY: Chest CT dated 04/11/2019. PET/CT dated 07/10/2017. TECHNIQUE: CT scan of the cervical spine is performed from the skull base to the upper thoracic spine . Images are reviewed in the axial, sagittal, and coronal planes. IV contrast was not administered fo r this examination. A dose lowering technique was utilized adhering to the principles of ALARA. FINDINGS: Skeletal structures: The skeletal structures are osteopenic. There is no evidence of fracture or subl uxation involving the cervical spine. Vertebral body height is maintained. There is minimal anterolis thesis at C2-C3 and C3-C4. Minimal retrolisthesis is noted at C4-C5. There is straightening of the ce rvical lordosis with reversal centered at C4. Anterior osteophytes are seen throughout. The odontoid process and lateral masses are intact. The atlantoaxial articulation is preserved noting productive d egenerative change. The spinous processes appear intact. Intervertebral discs: Advanced disc space narrowing is seen at all levels between C4-C5 and C6-C7. Mo derate disc space narrowing seen at C3-C4. Central canal: Posterior disc osteophyte complexes from C4-C5 through C6-C7 likely contribute to mult ilevel acquired compromise of the central canal. Soft tissues: The prevertebral and paraspinous soft tissues are within normal limits. Fluid and blood products are seen in the visualized upper pharynx. There is atherosclerotic calcification of the car otid bulbs. There is asymmetric fullness of the right laryngeal soft tissues, best seen on axial imag e #58 of 96. Calvarium: The visualized calvarium at the skull base appears intact. Brain parenchyma: Partially visualized brain parenchyma the skull base is within normal limits. Sinuses and mastoids: There are bilateral mastoid effusions. Blood fills the partially visualized max illary sinuses. There are bilateral maxillary sinus fractures, as well as bilateral pterygoid plate f ractures. A 7 mm nodular structure is noted in the right middle ear on image #45. Lung apices: Emphysematous change is noted in the upper lobes. Apical scarring is observed. A 4 mm le ft apical nodule is seen on image #[id number]. IMPRESSION: 1. There is no evidence of fracture or subluxation involving the cervical spine. 2. Osteopenia and spondylotic change as above. 3. There are bilateral maxillary sinus fractures as well as comminuted fractures of the bilateral pte rygoid plates. Blood fills the maxillary antra. 4. There is asymmetric fullness of the right laryngeal soft tissues. This is of indeterminant signifi cance. Given the history of laryngeal carcinoma follow-up with direct visualization is recommended. 5. Emphysema. 6. A 4 mm left apical pulmonary nodule is more conspicuous than on the 04/11/[address] Follow-up w ith a dedicated chest CT in 3 months time is recorded for reassessment. 7. A 7 mm nodular soft tissue structure is noted in the right middle ear. Cholesteatoma could have th is appearance and nonemergent ENT follow-up is recommended. ACT 112: Negative or not required by law. Electronically signed by: Harjinder Yuen M.D. 12/07/2019 8:51 AM
--- NOTE | 2019-12-07 08:58 | CT Scan Report ---
CT facial bones wo con CT DOSE: 1773.10 mGy.cm CLINICAL HISTORY: Facial pain status post trauma COMPARISON STUDY: No previous studies for comparison. TECHNIQUE: Helical images were acquired in the transverse plane. The study was reviewed and analyzed on the independent 3-D workstation. A dose lowering technique was utilized adhering to the principle s of ALARA. There are bilateral pterygoid plate fractures. The zygomatic arches appear intact. Both globes appear intact. There are bilateral orbital floor fractures. There are fractures of the an terior and posterior lateral maxillary beavers bilaterally. There are bilateral nasal fractures. There is a fracture the nasal bridge communicating with the frontal sinus. No mandibular condylar fractures are visualized. There are advanced arthritic changes within the TMJs bilaterally. Note is made of supraglottic edema, possibly secondary to prior radiation therapy. There is a left frontal scalp hematoma IMPRESSION: 1. LeFort II fracture with bilateral pterygoid plate fractures, bilateral orbital floor fractures, an d fractures involving the anterior and posterior lateral beavers of both maxillary sinuses. There are a lso bilateral nasal fractures as well as a fracture involving the nasal bridge communicating with the frontal sinus. 2. Diffuse supraglottic edema, possibly secondary to prior radiation therapy. ACT 112: Negative or not required by law. Electronically signed by: Segundo Murdock M.D. 12/07/2019 8:57 AM
[2019-12-07] MEDS ORDERED: ACETAMINOPHEN 1000 MG/100 ML IV IV ONE (09:12)
[2019-12-07] MEDS ORDERED: AMPICILLIN/SULBACTAM SOD 3,000 MG in 0.9 % SODIUM CHLORIDE 100 ML IV STA (09:13)
[2019-12-07] MEDS ORDERED: ACETAMINOPHEN 1,000 MG/100 ML VIAL IV STA (09:14)
[2019-12-07] MEDS ORDERED: SODIUM CHLORIDE 0.9% 1000ML 1,000 ML IV SCH ×2 (09:15→15:00)
--- NOTE | 2019-12-07 11:24 | Emergency Department Note ---
ED Visit Note Procedure performed by myself with direct observation by Dr. Emmanuel Location: Left forehead; bridge of nose Total length: forehead -> 3cm, nose -> 2cm Complexity: simple repair of both areas Verbal consent was obtained after the risks and benefits were explained, including but not limited to bleeding, scarring, infection, pain, and bone/ joint/nerve damage. At this time, the risks of the procedure are less than the risks of NOT performing the procedure. A time out was taken and the correct patient and site identified. The skin was prepped with betadine. The target area was anesthetized with LET gel. Copious irrigation was performed using normal saline. The skin was re-prepped with betadine and a sterile field set. The wound was explored for foreign bodies and none found. Examination revealed no injury to deep structures such as tendons, bone, or significant blood vessels. Debridement was not performed. The wound edges were approximated using 6-0 simple interrupted nylon sutures. 7 sutures were placed in the forehead laceration, and 4 sutures placed in the nasal bridge laceration. Hemostasis and excellent approximation was achieved. Detailed wound care instructions and signs and symptoms of infection reviewed with the patient and his . No complications and the patient tolerated the procedure well. . Resident Activity Tracking Resident Involvement: Resident Care Provided Care Provided: Adult ED
[2019-12-07 11:47] LABS: Base Excess ABG 12.4 mEq/L (-9-1.8); HCO3 ABG 43 mmol/L (19-24); Oxygen Saturation ABG 98.1 % (90-95); PCO2 ABG 86 mmHg (35-46); PO2 ABG 125 mmHg (80-95); pH ABG 7.31 (7.35-7.45)
[2019-12-07 12:00] LABS: Allen Test Pos (Pos)
--- NOTE | 2019-12-07 12:05 | History & Physical Report ---
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 C/O PHILIP, facial pain. Denies any LOC, dizziness, CP, SOB, vision changes WBC 9, Hgb: 14.3, PLT: 147, Coags WNL CT HEAD:1. No acute intracranial findings. No calvarial fracture. CT FACE: 1. LeFort II fracture with bilateral pterygoid plate fractures, bilateral orbital floor fractures, and fractures involving the anterior and posterior lateral beavers of both maxillary sinuses. There are also bilateral nasal fractures as well as a fracture involving the nasal bridge communicating with the frontal sinus. 2. Diffuse supraglottic edema, possibly secondary to prior radiation therapy. CT C-SPINE: There is no evidence of fracture or subluxation involving the cervical spine. There is asymmetric fullness of the right laryngeal soft tissues. This is of indeterminant significance. Given the history of laryngeal carcinoma follow-up with direct visualization is recommended. CXR: No pneumothorax. Mild bibasilar opacities and interstitial thickening. Mild cardiomegaly. Pulmonary vascular congestion without overt pulmonary edema RIGHT & LEFT ELBOW XRAY:No acute bony abnormality is identified. In ER given Fentanyl 25mcg IV, zofran, IV Tylenol, Unasyn, NSS @100ml/hr In ER Maxillofacial surgery was consulted. Pt seen by Dr Doran who recommends no surgical intervention at this time and close clinical follow up. He reports will recheck pt this afternoon. Pt doing well on oxymask at this time Continue Unasyn Will admit to ICU for close monitoring at this time with pt's facial injuries, h/o larynx CA, chronic hypoxemic resp failure and hypercarbia Plan to repeat CT scan head this afternoon to monitor for any bleed Further plan per drawbridge tender (3) COPD (chronic obstructive pulmonary disease): (4) Chronic hypoxemic respiratory failure: On chronic 4L oxygen via NC. Baseline sats 89-92%. Follows with Dr Ventura In ER pt noted to drop to 75% on his chronic 4L oxygen via NC, as pt has significant edema to his nose. He was placed on oxymask at 12L with O2 sats up to 98%. His initial BMP with CO2: 41, AG of 1.0. Obtained ABG after pt titrated to 8L via oxymask. Pt further titrated down to 4L oxymask prior to ABG results. ABG:pH: 7.3, pCO2: 86, pO2: 125, HCO3: 43 pt chronic CO2 retainer and had high flow O2 in ER. Pt alert and oriented without any confusion Avoid over titration oxygen Continue supplemental oxygen via mask secondary to pt's facial/nasal injuries Monitor closely Continue home inhalers, prednisone (5) Squamous cell carcinoma of larynx: History vocal cords, squamous cell carcinoma s/p chemo, radiation which was completed in 03/2017 Follows with [facility] Otolaryngology Head and Neck Surgery - Dr Floyd (6) Factor VIII (functional) deficiency: Follows with Dr Gan. Coags WN (7) Tobacco use: Smoking cessation encouraged Nicotine patch DVT Prophylaxis -SCDs for now admit ICU DNR/DNI as per discussion with pt Follows with Dr España for routine care Pt was seen and care coordinated with Dr Leonardo. 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 Pt states he tripped in his slippers as he was getting ready this morning and fell forward hitting his face. Denies any LOC. Denies any dizziness, CP, SOB prior to fall. C/O headache and facial pain. Reports had some bleeding from nose and mouth. Pt states feels his breathing is at his baseline. Denies loss of vision, blurry vision, diplopia. Did have some nausea in ER. C/O abrasions to bilateral arms and discomfort over those abrasions. Also c/o stiffness of bilateral index fingers however reports fully able to move fingers and arms without difficulty or increased pain. Denies any other known injury. Denies fever/chills, diaphoresis, diarrhea, constipation, dizziness, syncope, neck pain, orthopnea, palpitations, cough, sore throat, choking, otalgia, abdominal pain, paresthesias, extremity weakness, extremity edema, rashes, urinary symptoms. Has been isolating at home during the pandemic, reports only going out for Dr appointments. Ramirez in 2017 according to outpatient records. In ER pt found to have extensive maxillofacial fractures. Pt was evaluated by maxillofacial surgery - Dr Doran who recommends no surgical intervention at this time and close clinical follow up. He reports will recheck pt this afternoon. In ER pt noted to drop to 75% on his chronic 4L oxygen via NC, as pt has significant edema to his nose. He was placed on oxymask at 12L with O2 sats up to 98%. His BMP with CO2: 41, AG of 1.0. Obtained ABG after pt titrated to 8L via oxymask. Pt further titrated down to 4L oxymask prior to ABG results. ABG:pH: 7.3, pCO2: 86, pO2: 125, HCO3: 43 Allergies Allergy/AdvReac Type Severity Reaction Status Date / Time No Known Drug Allergies Allergy Verified 12/07/19 10:04 Home Medications Home Medications Medication Instructions Recorded Confirmed Type albuterol sulfate 90 mcg/actuation 2 puffs INHALATION Q4H PRN #1 gm 11/20/18 12/07/19 History aerosol inhaler fluticasone 500 mcg-salmeterol 50 1 puffs INHALATION BID #1 ea 11/20/18 12/07/19 History mcg/dose blistr powdr for inhalation Mucinex 1,200 mg PO BID 04/11/19 12/07/19 History tiotropium bromide 18 mcg capsule 1 cap INHALATION QAM #30 puffs 10/15/19 12/07/19 Rx with inhalation device prednisone 5 mg tablet 5 mg PO BID #180 tab 10/29/19 12/07/19 Rx albuterol sulfate 2.5 mg INH Q4H PRN 12/07/19 12/07/19 History ibandronate 150 mg PO MO 12/07/19 12/07/19 History Past Med/Surg History Medical History Acquired hemophilia Factor VIII deficiency Cholesteatoma Chronic hypoxemic respiratory failure Glucose intolerance Pneumonia Squamous cell carcinoma of larynx Supraventricular tachycardia Tobacco use Surgical History Hx of colonoscopy S/P T&A (status post tonsillectomy and adenoidectomy) Family History Other Coronary heart disease Stroke Social History Smoking Status: Current every day smoker Cigarettes Per Day: 2 to 3 a day; Second Hand Exposure: No; Hx Alcohol Use: No Hx Substance Use: No Preferred Language: Polish Communication Ability: Effective Concession Manager Required: No Beliefs That Will Affect Care: None marital status: Current Living Situation: Spouse current occupational status: retired Feels Safe at Home: Yes Review of Systems Review of Systems: All systems reviewed & are unremarkable except as noted in HPI & below Physical Exam Physical Exam: General: no distress, WDWN Head: normocephalic Eyes: PERRL, EOM's intact, conjunctiva non-injected, anicteric FACE: +ecchymosis and edema bilateral eyes, +ecchymosis and edema external nose; +edema to maxillofacial region, +repaired laceration to bridge of nose, +repaired laceration to left forehead, no active epistaxis, +old blood noted mouth and posterior pharynx, has dentures, able to open and close jaw Neck: supple, trachea midline, non-tender, ROM intact Lungs: clear, no respiratory distress on oxymask at 4L, no wheezing/rhonchi/rales CV: RRR, no murmur, no pretibial edema Abd: normal BS, soft, non-tender Ext: Pt able to move bilateral shoulders, elbows, wrists and all digits, Able to actively flex and extend hips, knees, ankles; + abrasions to bilateral arms, +dressings to bilateral arms with reported skin tears that were reapproximated in ER Neuro: A&O x 3, no focal deficits noted, normal affect Skin: warm, dry, skin lacerations and abrasions as above in face and extremities. Results & Data Results & Data ([facility]) Vital Signs (Past 12 Hours) Vital Signs Temp Pulse Pulse Resp BP BP Pulse Ox 12/07/19 11:23 94 H 20 130/68 96 12/07/19 10:42 94 H 22 128/65 98 12/07/19 09:30 91 H 20 138/70 96 12/07/19 08:51 85 20 146/74 H 75 L 12/07/19 07:10 36.6 C 102 H 16 147/82 H 97 Laboratory Results Short CBC 12/07/19 Range/Units 07:54 WBC 9.07 (4.8-10.8) K/uL Hgb 14.3 (14.0-18.0) g/dL Hct 48.5 (42-52) % Plt Count 147 (130-400) K/uL BMP 12/07/19 07:54 Sodium 139 Potassium 4.7 Chloride 95 L Carbon Dioxide 41 H* BUN 14 Creatinine 0.52 L Glucose 129 H Calcium 9.[address] HEAD: IMPRESSION: 1. No acute intracranial findings. 2. No calvarial fracture. 3. Multiple facial fractures, better depicted on the facial bone CT. Please see that report for further description. CT FACE: IMPRESSION: 1. LeFort II fracture with bilateral pterygoid plate fractures, bilateral orbital floor fractures, and fractures involving the anterior and posterior lateral beavers of both maxillary sinuses. There are also bilateral nasal fractures as well as a fracture involving the nasal bridge communicating with the frontal sinus. 2. Diffuse supraglottic edema, possibly secondary to prior radiation therapy. CT C-SPINE: IMPRESSION: 1. There is no evidence of fracture or subluxation involving the cervical spine. 2. Osteopenia and spondylotic change as above. 3. There are bilateral maxillary sinus fractures as well as comminuted fractures of the bilateral pterygoid plates. Blood fills the maxillary antra. 4. There is asymmetric fullness of the right laryngeal soft tissues. This is of indeterminant significance. Given the history of laryngeal carcinoma follow-up with direct visualization is recommended. 5. Emphysema. 6. A 4 mm left apical pulmonary nodule is more conspicuous than on the 04/11/[address] Follow-up with a dedicated chest CT in 3 months time is recorded for reassessment. 7. A 7 mm nodular soft tissue structure is noted in the right middle ear. Cholesteatoma could have this appearance and nonemergent ENT follow-up is recommended. CXR: IMPRESSION: 1. No pneumothorax. 2. Mild bibasilar opacities and interstitial thickening. 3. Mild cardiomegaly. Pulmonary vascular congestion without overt pulmonary ed neri RIGHT ELBOW XRAY: IMPRESSION: No acute bony abnormality is identified. LEFT ELBOW XRAY: IMPRESSION: No fractures or dislocations identified.
--- NOTE | 2019-12-07 12:07 | XRay Report ---
XR elbow LT min 3V routine CLINICAL HISTORY: Left elbow pain status post trauma COMPARISON: None. DISCUSSION: No acute fractures or dislocations are visualized. IMPRESSION: No fractures or dislocations identified. ACT 112: Negative or not required by law. Electronically signed by: Segundo Murdock M.D. 12/07/2019 12:06 PM
--- NOTE | 2019-12-07 12:08 | XRay Report ---
XR chest 2V PA/lateral CLINICAL HISTORY: fall, abnormal lung exam COMPARISON STUDY: Chest radiograph and chest CT April 11, 2019. FINDINGS: There is no pneumothorax or pleural effusion. There is mild bibasilar interstitial thickeni ng and opacities. Note is made of mild cardiomegaly. There is pulmonary vascular congestion without e vidence for pulmonary edema. Mediastinal contours are stable. IMPRESSION: 1. No pneumothorax. 2. Mild bibasilar opacities and interstitial thickening. 3. Mild cardiomegaly. Pulmonary vascular congestion without overt pulmonary edema ACT 112: Negative or not required by law. Electronically signed by: Isaac Qiu M.D. 12/07/2019 12:07 PM
--- NOTE | 2019-12-07 12:10 | XRay Report ---
RIGHT ELBOW 3 VIEWS CLINICAL HISTORY: Fall. Right elbow injury. FINDINGS: 3 views of the right elbow are obtained. No prior studies are available for comparison at t he time of dictation. The skeletal structures are osteopenic. No fracture is seen. The joint spaces a re maintained. There is no joint effusion. The overlying soft tissues are normal in appearance. IMPRESSION: No acute bony abnormality is identified. Electronically signed by: Harjinder Yuen M.D. 12/07/2019 12:09 PM
[2019-12-07 12:48] LABS: Partial Thromboplastin Ratio 0.9; Partial Thromboplastin Time 26.1 Seconds (21.0-31.0); Prothrombin Time 10.7 Seconds (9.0-12.0)
--- NOTE | 2019-12-07 13:09 | Communication Note ---
Date of Service: December 07, 2019 Attending Addendum: care coordinated with MUKUL Lowry please refer to her notes for full details, I agree with her notes patient seen and examined, records reviewed by myself as well on exam, patient seen sitting up in bed, on 4 L of oxygen mask, not in distress, comfortable, speaking sentences with no effort Appears somewhat tired but oriented x3, alert, answers all questions appropriately States pain on his face is well controlled by recently given pain medicines Denies sensation of blood dripping in his mouth or throat during exam No nausea, dizziness, problems with vision, chest pain, shortness of breath, palpitations, dizziness abdominal pain, or any other pain in his body no other symptoms VS noted and reviewed General- oriented x 3, not in distress, speaks in sentences with no effort or accessory muscle use Head-positive periorbital hematoma, sutured laceration on the left side of the forehead and nasal bridge area Positive significant swelling of the face Positive hematoma on the nasal bridge area and bilateral maxillary region Positive clotted blood in the oropharynx Eyes- PERRL, EOMI, anicteric ENT- oropharynx clear Neck- supple, no JVD, no adenopathy, no thyromegaly; carotids +2/2, no bruits appreciated Lungs-diminished breath sounds but clear no crackles or wheezing Heart- normal rate, regular rhythm; no murmur, no gallop, no rub appreciated Abdomen- normal bowel sounds, nondistended, soft, nontender, no masses or hepatosplenomegaly Extremities- no pretibial edema, no calf tenderness; peripheral pulses intact Neuro- alert, oriented x 3; CN 2-12 grossly intact; motor 5/5 bilaterally;sensation 100% on all extremities; no other gross focal neurologic deficits Skin- warm & dry WBC 9.07 Hg 14.3 Platelet 147 PT 10.7 INR 1.0 PTT 26.1 ABG pH 7.3, PCO2 86, PO2 125, bicarb [address] face noted and reviewed Cervical spine spine CT no fractures Elbow x-rays no fracture X-ray no effusion or pneumonia ASSESSMENT AND PLAN 74-year-old male with history of chronic respiratory failure secondary to COPD, on 4 L by nasal cannula, History of vocal cord squamous cell cancer status post radiation and chemotherapy in 2017, history of factor VIII deficiency status post Rituxan therapy in 2017, Presenting with multiple facial fractures status post mechanical fall. Multiple Facial fractures CT face: 1. LeFort II fracture with bilateral pterygoid plate fractures, bilateral orbital floor fractures, and fractures involving the anterior and posterior lateral beavers of both maxillary sinuses. There are also bilateral nasal fractures as well as a fracture involving the nasal bridge communicating with the frontal sinus. In addition to the fractures mentioned, there is a subtle fracture involving the posterior wall of the right frontal sinus. There is no associated pneumocephalus. 2. Diffuse supraglottic edema, possibly secondary to prior radiation therapy. --Currently, respiratory status stable, on 4 L of oxygen mask with good O2 saturation Clotted blood noted in the oropharynx, currently no active bleeding identified so far --Discussed with maxillofacial surgeon Dr. Doran, comfortable with admitting the patient to our hospital, no surgical intervention recommended at this point , he will re-evaluate the patient around [address] head at 2 PM Keep n.p.o. for now IV Unasyn started Scheduled IV Ofirmev, PRN analgesics Tetanus vaccination up-to-date --Discussed with artificial glass eye maker Dr. Abel, he kindly accepted the patient to the ICU COPD, Chronic Respiratory Failure on 4 L by nasal cannula --Not in acute exacerbation History of vocal cord squamous cell carcinoma, status post radiation and chemotherapy in 2017 Factor VIII deficiency, status post Rituxan therapy in 2017 --Follows with Dr. Ezra Gan, last visit 2018, stable from his standpoint Discussed with Dr. Gan regarding patient's trauma and possible bleeding, PT/INR/PTT stable, no further interventions at this point --Follows with [facility], last visit October 2019, stable from their standpoint other diagnoses and plan of care as per MUKUL Leonardo MD
--- NOTE | 2019-12-07 13:33 | Critical Care Consultation ---
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 Neuro: - CAM-ICU negative - CT findings noted - Given extensive fractures and history of Factor VIII deficiency will continue to monitor in ICU Cardiac/Vascular: - Currently normotensive without support - no AL or HTN history - continue to monitor Respiratory: - COPD: - continue Spiriva daily, Advair BID, Mucinex BID - Albuterol nebs as needed - home O2 requirements 4L NC GI/Nutrition: - Will allow to eat following re-eval from OMF surgery Renal/Lytes: - Cr stable as compared to previous admissions ENDO: - No diabetic or thyroid disorder history, ICU glycemic protocol HEME: - Hgb stable as compared to previous admissions - continue to monitor ID: - Unasyn for extensive fractures Lines/IV Access: - PIV x1 (2) Factor VIII (functional) deficiency: (3) COPD (chronic obstructive pulmonary disease): (4) Squamous cell carcinoma of larynx: Supervising Physician Co-Signing Physician Notes Dr. Kong was resident physician during care of patient. I separately evaluated patient for gordillo portions of the history and the exam. I was present during the critical portion of medical decision making, and I discussed the case with the resident. I generally agree with the findings and plan. Observation for possible airway compromise; however, patient is adamant he does not want intubated in any circumstance. Discussed the case with OMFS, will continue antibiotics, not a surgical candidate. If patient feels that he is unable to take p.o. and wants to continue with treatment he could possibly consider PEG tube placement. Patient would also likely require tracheostomy given the malignancy. No resuscitation in event of cardiac arrest. Known posterior wall fracture of her frontal sinus. No role for invasive nor noninvasive mechanical ventilation. 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 Patient was walking around the house in his slippers getting ready for an appointment when one of his shoes slipped to the side and he tripped and fell forward hitting his face. Did not lose consciousness during this episode; denies having chest pain, shortness of breath, dizziness, or light-headedness prior to fall. Currently endorses headache and some mild facial pain. Does not currently taste blood or feel blood in the back of his throat. On baseline patient uses 3.5-4L NC daily. Does not some aches and pains to both arms surrounding the abrasions on his skin. Since arrival to hospital continues to deny loss of vision, blurry vision, diplopia. Allergies Allergy/AdvReac Type Severity Reaction Status Date / Time No Known Drug Allergies Allergy Verified 12/07/19 10:04 Home Medications Home Medications Medication Instructions Recorded Confirmed Type albuterol sulfate 90 mcg/actuation 2 puffs INHALATION Q4H PRN #1 gm 11/20/18 12/07/19 History aerosol inhaler fluticasone 500 mcg-salmeterol 50 1 puffs INHALATION BID #1 ea 11/20/18 12/07/19 History mcg/dose blistr powdr for inhalation Mucinex 1,200 mg PO BID 04/11/19 12/07/19 History tiotropium bromide 18 mcg capsule 1 cap INHALATION QAM #30 puffs 10/15/19 12/07/19 Rx with inhalation device prednisone 5 mg tablet 5 mg PO BID #180 tab 10/29/19 12/07/19 Rx albuterol sulfate 2.5 mg INH Q4H PRN 12/07/19 12/07/19 History ibandronate 150 mg PO MO 12/07/19 12/07/19 History Patient History Medical History Acquired hemophilia Factor VIII deficiency Cholesteatoma Chronic hypoxemic respiratory failure Factor VIII (functional) deficiency Glucose intolerance Pneumonia Squamous cell carcinoma of larynx Supraventricular tachycardia Tobacco use Surgical History Hx of colonoscopy S/P T&A (status post tonsillectomy and adenoidectomy) Family History Other Coronary heart disease Stroke Social History Smoking Status: Current every day smoker Cigarettes Per Day: 2 to 3 a day; Second Hand Exposure: No; Do You Dip or Chew Tobacco: No; Tobacco Cessation Education Requested by Patient: Yes Hx Alcohol Use: No Hx Substance Use: No Preferred Language: Citizen Of [place] Communication Ability: Unable Job Press Feeder Required: No Beliefs That Will Affect Care: None marital status: Current Living Situation: Spouse current occupational status: retired Feels Safe at Home: Yes Safety Concerns: Feels Safe At This Time Review of Systems Review of Systems: All systems reviewed & are unremarkable except as noted in HPI & below Physical Exam Constitutional: WD/WN, vitals as above Eyes: + anicteric sclerae, PERRL, normal accommodation and EOM intact bilaterally Neck: trachea midline, no thyromegaly Respiratory: normal respiratory effort, lungs clear to auscultation Cardiovascular: Rate/Rhythm: regular rate and regular rhythm Heart Sounds: no gallop, no murmur and no cardiac rub Vessels: normal peripheral pulses Gastrointestinal (Abdomen): normal bowel sounds, soft, nontender, no hepatosplenomegaly Musculoskeletal: no cyanosis or clubbing, extremities motor strength 5/5 Skin: Trauma: + abrasion (b/l extensor surfaces of upper extremities), + laceration (repaired laceration over nasal bridge and L supraorbit) and + hematoma (doris-orbital with extension over nasal bridge and into b/l maxilla) Neurologic: CN's II-XI intact bilaterally, deep tendon reflexes 2+ bilaterally and moves all extremities Psychiatric: Orientation: alert and oriented x 3 Lymphatic: no cervical lymphadenopathy Results & Data Results & Data ([facility]) Vital Signs (Past 12 Hours) Vital Signs Temp Pulse Pulse Resp BP BP Pulse Ox 12/07/19 12:22 96 H 22 138/77 97 12/07/19 11:23 94 H 20 130/68 96 12/07/19 10:42 94 H 22 128/65 98 12/07/19 09:30 91 H 20 138/70 96 12/07/19 08:51 85 20 146/74 H 75 L 12/07/19 07:10 36.6 C 102 H 16 147/82 H 97 Laboratory Results 12/07/19 12/07/19 12/07/19 Range/Units 11:33 07:54 07:54 WBC (4.8-10.8) K/uL RBC (4.7-6.1) M/uL Hgb (14.0-18.0) g/dL Hct (42-52) % MCV (80-100) fL MCH (25-34) pg MCHC (32-36) g/dL RDW Std Deviation (36.4-46.3) fL RDW Coeff of Lila (11.5-14.5) % Plt Count (130-400) K/uL MPV (7.4-10.4) fL Immature Gran % (Auto) % Neut % (Auto) % Lymph % (Auto) % [place] % (Auto) % Eos % (Auto) % Baso % (Auto) % Neut # (Auto) (1.4-6.5) K/uL Lymph # (Auto) (1.2-3.4) K/uL [place] # (Auto) (0.11-0.59) K/uL Eos # (Auto) (0-0.5) K/uL Baso # (Auto) (0-0.2) K/uL Immature Gran # (Auto) (0.00-0.02) K/uL PT 10.7 (9.0-12.0) Seconds INR 1.0 (0.9-1.1) APTT 26.1 (21.0-31.0) Seconds PTT Ratio 0.9 ABG pH 7.31 L (7.35-7.45) ABG pCO2 86 H (35-46) mmHg ABG pO2 125 H (80-95) mmHg ABG HCO3 43 H (19-24) mmol/L ABG O2 Saturation 98.1 H (90-95) % ABG Base Excess 12.4 H (-9-1.8) mEq/L Jose Test Pos (Pos) Barometric Pressure 732.6 mm/Hg Oxygen Given 8L Sodium 139 (136-145) mmol/L Potassium 4.7 (3.5-5.1) mmol/L Chloride 95 L (98-107) mmol/L Carbon Dioxide 41 H* (21-32) mmol/L Anion Gap 1.0 L (3-11) BUN 14 (7-18) mg/dl Creatinine 0.52 L (0.6-1.4) mg/dl Est Cr Clr Drug Dosing 116.3 ml/min Est GFR ( Amer) 122.6 Est GFR (Non-Af Amer) 105.8 BUN/Creatinine Ratio 26.3 H (10-20) Glucose 129 H (70-99) mg/dl Calcium 9.4 (8.5-10.1) mg/dl 12/07/19 Range/Units 07:54 WBC 9.07 (4.8-10.8) K/uL RBC 5.08 (4.7-6.1) M/uL Hgb 14.3 (14.0-18.0) g/dL Hct 48.5 (42-52) % MCV 95.5 (80-100) fL MCH 28.1 (25-34) pg MCHC 29.5 L (32-36) g/dL RDW Std Deviation 54.1 H (36.4-46.3) fL RDW Coeff of Lila 15.2 H (11.5-14.5) % Plt Count 147 (130-400) K/uL MPV 10.8 H (7.4-10.4) fL Immature Gran % (Auto) 0.1 % Neut % (Auto) 80.8 % Lymph % (Auto) 7.9 % [place] % (Auto) 10.4 % Eos % (Auto) 0.7 % Baso % (Auto) 0.1 % Neut # (Auto) 7.33 H (1.4-6.5) K/uL Lymph # (Auto) 0.72 L (1.2-3.4) K/uL [place] # (Auto) 0.94 H (0.11-0.59) K/uL Eos # (Auto) 0.06 (0-0.5) K/uL Baso # (Auto) 0.01 (0-0.2) K/uL Immature Gran # (Auto) 0.01 (0.00-0.02) K/uL PT (9.0-12.0) Seconds INR (0.9-1.1) APTT (21.0-31.0) Seconds PTT Ratio ABG pH (7.35-7.45) ABG pCO2 (35-46) mmHg ABG pO2 (80-95) mmHg ABG HCO3 (19-24) mmol/L ABG O2 Saturation (90-95) % ABG Base Excess (-9-1.8) mEq/L Jose Test (Pos) Barometric Pressure mm/Hg Oxygen Given Sodium (136-145) mmol/L Potassium (3.5-5.1) mmol/L Chloride (98-107) mmol/L Carbon Dioxide (21-32) mmol/L Anion Gap (3-11) BUN (7-18) mg/dl Creatinine (0.6-1.4) mg/dl Est Cr Clr Drug Dosing ml/min Est GFR ( Amer) Est GFR (Non-Af Amer) BUN/Creatinine Ratio (10-20) Glucose (70-99) mg/dl Calcium (8.5-10.1) mg/dl Diagnostic Findings CT of the Head w/o Contrast FINDINGS: No acute intracranial hemorrhage, midline shift or mass effect is present. The ventricular system is unremarkable. The basilar cisterns are patent. No extra-axial collections are present. There are no findings to suggest acute dural sinus thrombosis or acute territorial infarct. There is no calvarial fracture. Left mastoid air cells are partially opacified. Facial contusion is noted. Numerous bilateral acute facial bone fractures are better depicted on the facial bone CT. IMPRESSION: 1. No acute intracranial findings. 2. No calvarial fracture. 3. Multiple facial fractures, better depicted on the facial bone CT. Please see that report for further description. Electronically signed by: Isaac Qiu M.D. CT Facial bones w/o Contrast FINDINGS: There are bilateral pterygoid plate fractures. The zygomatic arches appear intact. Both globes appear intact. There are bilateral orbital floor fractures. There are fractures of the anterior and posterior lateral maxillary beavers bilaterally. There are bilateral nasal fractures. There is a fracture the nasal bridge communicating with the frontal sinus. No mandibular condylar fractures are visualized. There are advanced arthritic changes within the TMJs bilaterally. Note is made of supraglottic edema, possibly secondary to prior radiation therapy. There is a left frontal scalp hematoma. Subtle fracture involving the posterior wall of the right frontal sinus. There is no associated pneumocephalus. IMPRESSION: 1. LeFort II fracture with bilateral pterygoid plate fractures, bilateral orbital floor fractures, and fractures involving the anterior and posterior lateral beavers of both maxillary sinuses. There are also bilateral nasal fractures as well as a fracture involving the nasal bridge communicating with the frontal sinus. 2. Diffuse supraglottic edema, possibly secondary to prior radiation therapy. Electronically signed by: Segundo Murdock M.D. CT of the Cervical Spine FINDINGS: Skeletal structures: The skeletal structures are osteopenic. There is no evidence of fracture or subluxation involving the cervical spine. Vertebral body height is maintained. There is minimal anterolisthesis at C2-C3 and C3-C4. Minimal retrolisthesis is noted at C4-C5. There is straightening of the cervical lordosis with reversal centered at C4. Anterior osteophytes are seen throughout. The odontoid process and lateral masses are intact. The atlantoaxial articulation is preserved noting productive degenerative change. The spinous processes appear intact. Intervertebral discs: Advanced disc space narrowing is seen at all levels between C4-C5 and C6-C7. Moderate disc space narrowing seen at C3-C4. Central canal: Posterior disc osteophyte complexes from C4-C5 through C6-C7 likely contribute to multilevel acquired compromise of the central canal. Soft tissues: The prevertebral and paraspinous soft tissues are within normal limits. Fluid and blood products are seen in the visualized upper pharynx. There is atherosclerotic calcification of the carotid bulbs. There is asymmetric fullness of the right laryngeal soft tissues, best seen on axial image #58 of 96. Calvarium: The visualized calvarium at the skull base appears intact. Brain parenchyma: Partially visualized brain parenchyma the skull base is within normal limits. Sinuses and mastoids: There are bilateral mastoid effusions. Blood fills the partially visualized maxillary sinuses. There are bilateral maxillary sinus fractures, as well as bilateral pterygoid plate fractures. A 7 mm nodular structure is noted in the right middle ear on image #45. Lung apices: Emphysematous change is noted in the upper lobes. Apical scarring is observed. A 4 mm left apical nodule is seen on image #582. IMPRESSION: 1. There is no evidence of fracture or subluxation involving the cervical spine. 2. Osteopenia and spondylotic change as above. 3. There are bilateral maxillary sinus fractures as well as comminuted fractures of the bilateral pterygoid plates. Blood fills the maxillary antra. 4. There is asymmetric fullness of the right laryngeal soft tissues. This is of indeterminant significance. Given the history of laryngeal carcinoma follow-up with direct visualization is recommended. 5. Emphysema. 6. A 4 mm left apical pulmonary nodule is more conspicuous than on the 04/11/[address] Follow-up with a dedicated chest CT in 3 months time is recorded for reassessment. 7. A 7 mm nodular soft tissue structure is noted in the right middle ear. Cholesteatoma could have this appearance and nonemergent ENT follow-up is recommended. Electronically signed by: Harjinder Yuen M.D. Medications Administered Current Inpatient Medications Sodium Chloride (Nss 1000ml) 1,000 mls @ 100 mls/hr IV .Q10H ADIEL Stop: 01/06/20 09:14 Last Admin: 12/07/19 09:29 Dose: 100 mls/hr Documented by: Resident Activity Tracking Resident Involvement: Resident Care Provided Care Provided: Adult Hospital Medicine (Critical Care)
--- NOTE | 2019-12-07 14:08 | CT Scan Report ---
CT SCAN OF THE CERVICAL SPINE CLINICAL HISTORY: Trauma. Fall. History of laryngeal carcinoma. COMPARISON STUDY: CT of the cervical spine performed earlier the same day 12/07/2019. Chest CT dated . PET/CT dated 07/10/2017. TECHNIQUE: CT scan of the cervical spine is performed from the skull base to the upper thoracic spine . Images are reviewed in the axial, sagittal, and coronal planes. IV contrast was not administered fo r this examination. A dose lowering technique was utilized adhering to the principles of ALARA. FINDINGS: Skeletal structures: The skeletal structures are osteopenic. There is no evidence of fracture or subl uxation involving the cervical spine. Vertebral body height is maintained. There is minimal anterolis thesis at C2-C3 and C3-C4. Minimal retrolisthesis is noted at C4-C5. There is straightening of the ce rvical lordosis with reversal centered at C4. Anterior osteophytes are seen throughout. The odontoid process and lateral masses are intact. The atlantoaxial articulation is preserved noting productive d egenerative change. The spinous processes appear intact. Intervertebral discs: Advanced disc space narrowing is seen at all levels between C4-C5 and C6-C7. Mo derate disc space narrowing seen at C3-C4. Central canal: Posterior disc osteophyte complexes from C4-C5 through C6-C7 likely contribute to mult ilevel acquired compromise of the central canal. Soft tissues: The prevertebral and paraspinous soft tissues are within normal limits. Secretions are again seen within the pharynx. There is atherosclerotic calcification of the carotid bulbs. There is asymmetric fullness of the right laryngeal soft tissues, best seen on axial image #38 of 53. Calvarium: The visualized calvarium at the skull base appears intact. Brain parenchyma: Partially visualized brain parenchyma the skull base is within normal limits. Mastoids: There are bilateral mastoid effusions. Comminuted pterygoid plate fractures are partially i jim. A 7 mm nodular structure is again seen in the right middle ear on image #27. Lung apices: Emphysematous change is noted in the upper lobes. IMPRESSION: 1. There is no evidence of fracture or subluxation involving the cervical spine. No change from today 's earlier examination. 2. Osteopenia and spondylotic change as above. 3. Bilateral pterygoid plate fractures are partially imaged. 4. Additional findings as above. ACT 112: Negative or not required by law. Electronically signed by: Harjinder Yuen M.D. 12/07/2019 2:07 PM
[2019-12-07] MEDS ORDERED: ONDANSETRON INJ 2 MG/ML 2 ML VIAL IV PRN (14:39)
[2019-12-07] MEDS ORDERED: ICU PROTOCOL FOR HYPERGLYCEMIA PRN (14:39)
[2019-12-07] MEDS ORDERED: ALBUTEROL 0.083% NEBU SOLN 3 ML VIAL NEB PRN (14:39)
[2019-12-07] MEDS ORDERED: MoRPHine SULFATE 2 MG/ML CARP IV PRN (14:39)
--- NOTE | 2019-12-07 14:56 | Surgery Consultation ---
Date of Consultation Patient was referred for evaluation of a LeFort II facial fracture secondary to trauma from fall this AM. The injury happened this AM when patient tripped and fell hitting face on the floor. CC as per -His nose is fractured, he has problems with congestion/bleeding and breathing. His nose looks off, pushed out on one side and pushed in on the other. facial lacerations and swelling facial swelling noted Septum--looks to be midline w/o deviation Mucosal tissue swollen+ dried blood, No active nasal bleeding, all bleeding from lacerations Sinus-- fractures noted, congestion and blood filled as I would expect given the facial fracture Nasal exam- hyperemic mucosa, congestion, no bleeding, The right side is out while left side depressed=cosmetic deformity. Nasal-Frontal separation in true LeFort II fashion. CT shows communication with the frontal sinus and ? posterior wall of frontal sinus, No air w/in cranial fossa. I se no evidence of CFS leak--But I will follow Oral No teeth, no oral bleeding, tissue looks good, dentures excellent fit will stable occlusion No swelling intraoral, Floor of mouth is all WNL. Tongue, neck--not effected from recent trauma CT scan--after trauma nasal bone fractures, displaced right lateral while left is medial by about 2 mm, Fracture lateral wall, orbital rims and floor of orbit, LeFort II fracture. See Report The patient has upper and lower dentures--the occlusion is a Class III but reproducible with dentures. There is separation and slight movement at the Naso-frontal suture line. No evidence of eye muscle entrapment. Gross swelling of the cheeks, eyes, nose as a result of the recent trauma. H/O Head and Neck Cancer with chemo and RT Patient is on chronic O2 therapy, really no activity, does not get out much, extreme SOB, GRANDE Plan Given that the fracture has minimal displacement and the occlusion with dentures is stable Given his co morbidities and chronic lung issues ---subjecting Thomas to a major surgical procedure with a general anesthesia is a great risk His subglottic edema--secondary to the RT in the past + a nasotrac intubation could make it necessary for a tracheotomy if we had to do surgery. I would like to avoid surgery at all costs if possible. I will allow swelling to decrease and follow patient as out patient. I discussed with patient and his that surgery and GA will be extremely risky. We will continue to observe patient in the ICU and develop a plan as needed. Hopefully with soft diet, oral antibiotics the follow up on my part the fractures will heal w/o any ill effects. December 07, 2019 History of Present Illness Attending Physician: Sawyer Leonardo MD Allergies Allergy/AdvReac Type Severity Reaction Status Date / Time No Known Drug Allergies Allergy Verified 12/07/19 10:04 Home Medications Home Medications Medication Instructions Recorded Confirmed Type albuterol sulfate 90 mcg/actuation 2 puffs INHALATION Q4H PRN #1 gm 11/20/18 12/07/19 History aerosol inhaler fluticasone 500 mcg-salmeterol 50 1 puffs INHALATION BID #1 ea 11/20/18 12/07/19 History mcg/dose blistr powdr for inhalation Mucinex 1,200 mg PO BID 04/11/19 12/07/19 History tiotropium bromide 18 mcg capsule 1 cap INHALATION QAM #30 puffs 10/15/19 12/07/19 Rx with inhalation device prednisone 5 mg tablet 5 mg PO BID #180 tab 10/29/19 12/07/19 Rx albuterol sulfate 2.5 mg INH Q4H PRN 12/07/19 12/07/19 History ibandronate 150 mg PO MO 12/07/19 12/07/19 History Patient History Medical History Acquired hemophilia Factor VIII deficiency Cholesteatoma Chronic hypoxemic respiratory failure Factor VIII (functional) deficiency Glucose intolerance Pneumonia Squamous cell carcinoma of larynx Supraventricular tachycardia Tobacco use Surgical History Hx of colonoscopy S/P T&A (status post tonsillectomy and adenoidectomy) Family History Other Coronary heart disease Stroke Social History Smoking Status: Current every day smoker Cigarettes Per Day: 2 to 3 a day; Second Hand Exposure: No; Do You Dip or Chew Tobacco: No; Tobacco Cessation Education Requested by Patient: Yes Hx Alcohol Use: No Hx Substance Use: No Preferred Language: Luxembourgish Communication Ability: Effective Research Psychologist Required: No Beliefs That Will Affect Care: None marital status: Current Living Situation: Spouse current occupational status: retired Feels Safe at Home: Yes Safety Concerns: Feels Safe At This Time Results & Data ([facility]) Vital Signs (Past 12 Hours) Vital Signs Temp Pulse Pulse Resp BP BP Pulse Ox 12/07/19 13:35 93 H 16 149/81 H 95 12/07/19 12:22 96 H 22 138/77 97 12/07/19 11:23 94 H 20 130/68 96 12/07/19 10:42 94 H 22 128/65 98 12/07/19 09:30 91 H 20 138/70 96 12/07/19 08:51 85 20 146/74 H 75 L 12/07/19 07:10 36.6 C 102 H 16 147/82 H 97 PG Care Time/CCT Total # of Minutes Spent Total Time Spent with Patient: Total time spent is greater than 50% in coordination of care (as documented) at patient's floor/unit and/or counseling patient: Coding Level of Care Code 64974 Office/OBS Consult Lvl 4
--- NOTE | 2019-12-07 15:45 | CT Scan Report ---
CT SCAN OF THE BRAIN WITHOUT IV CONTRAST CLINICAL HISTORY: Head trauma. Facial fractures. COMPARISON STUDY: CT of the brain performed earlier the same day 12/07/2019. TECHNIQUE: Unenhanced axial CT scan of the brain is performed from the vertex to the skull base. A do se lowering technique was utilized adhering to the principles of ALARA. CT DOSE: 537.48 mGy.cm FINDINGS: Brain parenchyma: There are age-related involutional changes noting mild subcortical and periventric ular microangiopathic change. There is no hemorrhage, mass effect, or evidence of acute territorial i schemia by CT criteria. Buckley-white matter differentiation is preserved. No extra-axial fluid collecti on is seen. There is no pneumocephalus. Ventricles, sulci, cisterns: Prominent secondary to involutional change. Intracranial vasculature: There is atherosclerotic calcification of the cavernous carotid arteries. Calvarium: Fracture of the frontal bone involves the anterior and posterior beavers of the right fronta l sinus. No depressed calvarial fracture is seen. Soft tissues: There is frontal scalp contusion and facial soft tissue contusion/edema. Sinuses and mastoids: Complex facial bone fractures are partially visualized. There are bilateral max illary fractures, as well as pterygoid plate fractures. Blood fills the maxillary intercondylar the f rontal sinuses, and the anterior ethmoid sinuses. There are large mastoid effusions. Orbits: There are bilateral orbital floor fractures. Orbital contents are grossly unremarkable noting bilateral ocular lens implants. IMPRESSION: 1. There is no hemorrhage, mass effect, or evidence of acute territorial ischemia by CT criteria. 2. Complex facial bone fractures are again noted. These were better characterized on today's facial b one CT. ACT 112: Negative or not required by law. Electronically signed by: Harjinder Yuen M.D. 12/07/2019 3:44 PM
[2019-12-07] MEDS: UMECLIDINIUM BROMIDE 62.5MCG/BLISTER 7 PUFFS/INHALER INH SCH (15:52)
[2019-12-07] MEDS: FLUTICASONE/VILANTEROL 200/25MCG 14 PUFFS/INHALER INH SCH (15:53)
[2019-12-07] MEDS: AMPICILLIN/SULBACTAM SOD 3,000 MG in 0.9 % SODIUM CHLORIDE 100 ML IV SCH ×2 (15:54→20:08)
[2019-12-07] MEDS: NICOTINE 7 MG/24 HR TDSY TD SCH (15:54)
[2019-12-07] MEDS ORDERED: SALINE NASAL 225 SPRAYS, GENTAMICIN SULFATE 60 MG, BARCODE IDENTIFIER 1 EA PRN (16:28)
[2019-12-07] MEDS ORDERED: PROMETHAZINE HCL 6.25 MG in SODIUM CHLORIDE 0.9% 50 ML IV ONE (19:45)
[2019-12-07] MEDS: guaiFENesin 600 MG TABCR PO SCH (20:09)
[2019-12-07] MEDS: MoRPHine SULFATE 2 MG/ML CARP IV PRN (20:12)
[2019-12-07] MEDS ORDERED: predniSONE 5 MG TAB PO SCH (21:00)
[2019-12-08] MEDS: AMPICILLIN/SULBACTAM SOD 3,000 MG in 0.9 % SODIUM CHLORIDE 100 ML IV SCH ×4 (03:58→20:25)
[2019-12-08] MEDS: MoRPHine SULFATE 2 MG/ML CARP IV PRN (03:59)
[2019-12-08 04:33] LABS: Partial Thromboplastin Ratio 1.1; Partial Thromboplastin Time 29.6 Seconds (21.0-31.0); Prothrombin Time 10.9 Seconds (9.0-12.0)
[2019-12-08 04:48] LABS: Hematocrit (blood only) 50.9 % (42-52); Hemoglobin 14.1 g/dL (14.0-18.0); Mean Corpuscular Hemoglobin 27.7 pg (25-34); Mean Corpuscular Hgb Conc 27.7 g/dL (32-36); Mean Platelet Volume 10.8 fL (7.4-10.4); Platelet Count 134 K/uL (130-400); RDW Coefficient of Variation 15.1 % (11.5-14.5); Red Blood Count 5.09 M/uL (4.7-6.1); White Blood Count 10.76 K/uL (4.8-10.8)
[2019-12-08] MEDS ORDERED: NALOXONE HCL 0.4 MG/1 ML VIAL/CARP ONE ×2 (04:51→05:00)
[2019-12-08 04:57] LABS: Calcium 8.4 mg/dl (8.5-10.1); Est GFR (African American) 124.6; Est GFR (Non-African American) 107.5; Phosphorus 4.9 mg/dl (2.5-4.9); Potassium 4.9 mmol/L (3.5-5.1)
[2019-12-08] MEDS ORDERED: NALOXONE HCL 0.4 MG/1 ML VIAL/CARP IV STA ×4 (05:08→05:31)
[2019-12-08] MEDS ORDERED: ALBUT/IPRATROP 3MG/0.5MG NEB 3 ML VIAL NEB STA (05:28)
[2019-12-08] MEDS ORDERED: NALOXONE HCL 5 MG in 0.9 % SODIUM CHLORIDE 100 ML IV STA (05:31)
[2019-12-08] MEDS ORDERED: methylPREDNISolone 80 MG in SYRINGE 0 ML IV ONE (06:00)
[2019-12-08] MEDS ORDERED: NALOXONE HCL 5 MG in 0.9 % SODIUM CHLORIDE 100 ML IV SCH (06:00)
--- NOTE | 2019-12-08 06:40 | XRay Report ---
XR chest 1V portable CLINICAL HISTORY: Respiratory failure. COMPARISON STUDY: Chest radiograph December 07, 2019. Chest CT April 11, 2019. FINDINGS: Linear left basilar opacity represents atelectasis. There is no pneumothorax or pleural eff usion. Cardiomediastinal silhouette is stable. No consolidation is identified. This pulmonary vascula r congestion without overt pulmonary edema. IMPRESSION: 1. Pulmonary vascular congestion without overt pulmonary edema. 2. Linear left basilar opacity suggestive of atelectasis. ACT 112: Negative or not required by law. Electronically signed by: Isaac Qiu M.D. 12/08/2019 6:39 AM
--- NOTE | 2019-12-08 06:46 | Critical Care Progress Note ---
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 Patient has decompensated from a respiratory standpoint this morning, and now presents with severe hypercapnic respiratory failure and respiratory acidosis. Neuro: - AMS: patient initially treated with Narcan x2 dose without significant improvement - ABG revealed CO2 of unmeasurable level and significant respiratory acidosis with pH of 7.02, see management below - CT head repeated, no acute findings and multiple facial and sinus fractures as discussed in prior studies Cardiac/Vascular: - Currently normotensive without support - no ND or HTN history - continue to monitor on telemetry Respiratory: - Acute hypercapnic respiratory failure and chronic hypoxic respiratory failure: Patient now presenting with severe respiratory acidosis and CO2 of unmeasurable levels -Initially patient's placed on BiPAP and repeat ABG shows no improvement; discontinue BiPAP as patient has multiple sinus fractures and positive pressure contraindicated -Patient's was notified and called to the bedside as his prognosis is significantly poor given that he is DNI status and was clear on wishes did not want to be intubated -Management is significantly limited due to patient's CODE STATUS/wishes, will further discuss goals of care with on her arrival to the bedside - Given IV Solu-Medrol - continue Spiriva daily, Advair BID; hold mucinex - start 25mg hydrocortisone daily - Albuterol nebs as needed - home O2 requirements 4L NC GI/Nutrition: -Currently obtunded and not able to take p.o., will keep n.p.o. for now Renal/Lytes: - Cr stable as compared to previous admissions ENDO: - No diabetic or thyroid disorder history, ICU glycemic protocol HEME: - Hgb stable as compared to previous admissions - continue to monitor ID: - Unasyn for extensive fractures Lines/IV Access: - PIV x1 DVT Prophylaxis: - non-survivable injury with extensive fractures and known history of Factor VIII deficiency, chemoprophylaxis contraindicated at this time; per family's expressed desire to continue treatment options b/l knee high SCDs for mechanical prophylaxis CODE STATUSDNR/DNI CRITICAL CARE TIME - I have personally spent 60 minutes of critical care time in the direct management of this patient. This is a life/limb threatening event. This includes time spent evaluating patient, direct bedside care, chart review, placing orders, interpretation of diagnostic studies, discussion with consultants, patient, and family members, as well as other required patient management activities. This time is exclusive of all separately billable procedures, and teaching time and separate from and in addition to any other critical care service time. (2) Extensive facial fractures: (3) Dependence on supplemental oxygen: (4) Factor VIII (functional) deficiency: (5) Fall: (6) Chronic hypoxemic respiratory failure: (7) Squamous cell carcinoma of larynx: (8) COPD (chronic obstructive pulmonary disease): Admission and Anticipated Discharge Date Admission Date: December 07, 2019 Supervising Physician Co-Signing Physician Notes Dr. Kong was resident physician during care of patient. I separately evaluated patient for gordillo portions of the history and the exam. I was present during the critical portion of medical decision making, and I discussed the case with the resident. I generally agree with the findings and plan. Patient was discussed in multidisciplinary rounds with, also discussed with OMFS as well as hospitalist service. Patient did not want mechanical ventilation in any form. We have reached maximum therapy from respiratory standpoint. There is no role for nasogastric feeding given the multiple fractures and would likely necessitate PEG tube if desire to continue current treatment would be desired. Continuing aggressive care does not appear to be in line with patient's wishes. I believe the patient is entering an end-stage terminal condition without meaningful chance of recovery. Given his extensive end-stage COPD and facial fractures it is very difficult to provide adequate analgesia and yet avoid hypercarbia. I discussed this with the patient's family and patient's . We will continue the current treatment. Subjective Unfortunately this morning, Mr. De La Torre has decompensated from a respiratory standpoint. I was notified by the bedside nurse this a.m. that he was not responding as he had previously been throughout the night. Prior to this the patient had been alert and oriented and appropriate. We were unable to arouse him at the bedside. BSG was within normal limits. He was given Narcan 0.4 mg x 2 doses without improvement. ABG was obtained and revealed significant respiratory acidosis with unmeasurable CO2 which would be greater than 130. He was given IV Solu-Medrol and DuoNeb and placed on a full face BiPAP, however he had not showed improvement on his next gas. A CT of the head was obtained, and no acute intracranial findings were noted and was consistent with prior studies with multiple facial and sinus fractures. Considering patient's CODE STATUS of DNI and he clearly expressed wishes to not want to be intubated, he presents with a very poor prognosis. BiPAP discontinued as is contraindicated due to positive pressure with the patient's sinus fractures. The patient's is contacted and will report to the bedside this a.m. Further goals of care will be discussed at the bedside on her arrival. In the meantime patient remains DNR/DNI. Review of Systems Review of Systems: Unobtainable due to reduced consciousness Physical Exam Eyes: PERRL, conjunctivae normal, anicteric sclerae ENMT: external ear and nose normal, oropharynx normal Neck: trachea midline, no thyromegaly Respiratory: Bilateral breath sounds but noted bronchovascular wheezes, nonlabored breathing, symmetrical chest wall movement Cardiovascular: Rate/Rhythm: + tachycardic Heart Sounds: normal S1 and normal S2 Vessels: no JVD Extremities: normal capillary refill; no edema Gastrointestinal (Abdomen): normal bowel sounds, soft, nontender, no hepatosplenomegaly Skin: Bilateral facial hematoma Neurologic: Altered mental status, unable to follow commands, non-localizes to painful stimuli, obtunded Psychiatric: Unable to assess Genitourinary: Indwelling Alexander catheter inserted Results & Data Results & Data ([facility]) Vital Signs (Past 12 Hours) Vital Signs Temp Pulse Pulse Resp BP Pulse Ox 12/08/19 06:24 111 H 16 92 12/08/19 06:03 114 H 20 88 L 12/08/19 06:00 109 H 22 135/79 95 12/08/19 05:22 104 H 20 93 12/08/19 04:00 37.0 C 115 H 18 138/75 93 12/08/19 03:00 118 H 20 138/75 92 12/08/19 02:00 114 H 20 147/83 H 91 12/08/19 01:00 113 H 22 134/77 93 12/08/19 00:00 36.8 C 110 H 22 130/76 93 12/07/19 23:00 115 H 22 133/75 95 12/07/19 22:00 110 H 22 137/77 95 12/07/19 21:00 109 H 22 143/81 H 93 12/07/19 20:00 37.1 C 105 H 20 132/75 91 12/07/19 19:00 106 H 18 141/75 H 93 Coding Level of Care Code Critical Care 1st 30-74 mins Diagnoses Acute respiratory failure with hypercapnia J96.02 Extensive facial fractures S02.92XA Encounter type: initial encounter Fracture type: closed Dependence on supplemental oxygen Z99.81 Factor VIII (functional) deficiency D66 Fall W19.XXXA Chronic hypoxemic respiratory failure J96.11 Squamous cell carcinoma of larynx C32.9 COPD (chronic obstructive pulmonary disease) J43.8 COPD type: emphysema Emphysema type: other (1) Extensive facial fractures Encounter type: initial encounter Fracture type: closed Qualified Code(s): S02.92XA - Unspecified fracture of facial bones, initial encounter for closed fracture (2) COPD (chronic obstructive pulmonary disease) COPD type: emphysema Emphysema type: other Qualified Code(s): J43.8 - Other emphysema
--- NOTE | 2019-12-08 06:48 | CT Scan Report ---
CT head/brain wo con CLINICAL HISTORY: Acute change in mental status. COMPARISON STUDY: 12/07/2019 TECHNIQUE: Axial CT of the brain is performed from the vertex to the skull base. IV contrast was not administered for this examination. A dose lowering technique was utilized adhering to the principles of ALARA. CT DOSE: 614.27 mGy.cm FINDINGS: No intra or extra-axial mass lesions are visualized. There is no CT evidence of acute cortical infarc tion. There is no evidence of midline shift. There is no acute hemorrhage. There are patchy white matter hypodensities likely on a small vessel basis. There is no evidence of pathologic ventricular dilatation. There are fractures of both maxillary sinuses, nasal bones, and frontal sinus. There is fluid present within the maxillary sinuses and frontal sinus. There is facial soft tissue swelling. IMPRESSION: 1. Multiple facial fractures 2. No acute intracranial findings ACT 112: Negative or not required by law. Electronically signed by: Segundo Murdock M.D. 12/08/2019 6:46 AM
[2019-12-08] MEDS: FLUTICASONE/VILANTEROL 200/25MCG 14 PUFFS/INHALER INH SCH (08:44)
[2019-12-08] MEDS: UMECLIDINIUM BROMIDE 62.5MCG/BLISTER 7 PUFFS/INHALER INH SCH (08:44)
[2019-12-08] MEDS: guaiFENesin 600 MG TABCR PO SCH (08:44)
[2019-12-08] MEDS ORDERED: MoRPHine SULFATE 2 MG/ML CARP IV PRN (09:51)
[2019-12-08] MEDS: NICOTINE 7 MG/24 HR TDSY TD SCH (10:16)
--- NOTE | 2019-12-08 10:51 | Hospitalist Progress Note ---
Date of Service December 08, 2019 Assessment & Plan (1) Acute respiratory failure with hypercapnia: likely multifactorial etiology in setting of chronic respiratory failure 2/2 COPD with ? exacerbation, multiple facial fractures, a h/o SCC of the vocal cords with swelling. Increased oxygen supplementation provided and BIPAP when mental status decreased this morning and he was found to be in respiratory acidosis with significant CO2 retention. Family expressed no desire to intubate him at this time. Currently keeping him comfortable. (2) Extensive facial fractures: 2/2 mechanical fall at home. Cont Unasyn and supportive care per Dr. Puente in ([facility] [place] (3) Factor VIII (functional) deficiency: Follows with Dr Gan. Coags [place] (4) Fall: (5) Chronic hypoxemic respiratory failure: On chronic 4L oxygen via NC. Baseline sats 89-92%. Follows with Dr Audrey Saldana supportive care as above. (6) Cardiomyopathy: Does not appear to be in exacerbation. (7) Squamous cell carcinoma of larynx: History vocal cords, squamous cell carcinoma s/p chemo, radiation which was completed in 03/2017 Follows with [facility] [place] Otolaryngology Head and Neck Surgery - Dr Floyd (8) DVT prophylaxis: SCDs DNR/DNI Dispo-cont ICU support with oxygen supplementation and abx for now, but may not improve and would likely send upstairs and consider comfort care measures only. Gabby Walters DO [facility] Hospitalist Admission and Anticipated Discharge Date Admission Date: December 07, 2019 Subjective 74 yo M presented to the ER yesterday after a mechanical fall with subsequent facial fractures, including a Lefort II. Dr. Doran saw him and did not recommend surgery and he was placed in the ICU overnight for close monitoring of breathing. He remained on Unasyn with no fever and a continuous oxygen requirement. This morning per ICU notes, he decompensated from a respiratory standpoint and became unarousable at the bedside. He was given two doses of Narcan without improvement. An ABG revealed a severe respiratory acidosis with CO2>130. A CT head revealed no intracranial findings with residual fractures. He was given bronchodilator therapy, solumedrol and a trial of BIPAP. Without improvement the BIPAP was removed and he was made a DNR. I cannot obtain a history as he remains altered at this time. at bedside and all questions answered. Review of Systems Review of Systems: Unobtainable due to cognitive status Physical Exam Physical Exam: CONSTITUTIONAL: WNWD, vitals as above, generally somnolent and unarousable EYES: periorbital ecchymosis ENT: bilateral facial swelling present RESPIRATORY: clear to auscultation bilaterally, no crackles, rales or wheezes, normal respiratory effort CARDIOVASCULAR: regular rate and rhythm, S1 and 2 heard without murmurs, gallops or rubs GASTROINTESTINAL: soft, nontender, no guarding MUSCULOSKELETAL: cannot evaluation 2/2 abnormal cognition. SKIN: warm and dry NEUROLOGIC: abnormal cognition,limted evaluation Results & Data Results & Data ([facility]) Vital Signs (Past 12 Hours) Vital Signs Temp Pulse Pulse Resp BP Pulse Ox 12/08/19 06:24 111 H 16 92 12/08/19 06:03 114 H 20 88 L 12/08/19 06:00 109 H 22 135/79 95 12/08/19 05:22 104 H 20 93 12/08/19 04:00 37.0 C 115 H 18 138/75 93 12/08/19 03:00 118 H 20 138/75 92 12/08/19 02:00 114 H 20 147/83 H 91 12/08/19 01:00 113 H 22 134/77 93 12/08/19 00:00 36.8 C 110 H 22 130/76 93 12/07/19 23:00 115 H 22 133/75 95 Laboratory Results Short CBC 12/08/19 Range/Units 04:15 WBC 10.76 (4.8-10.8) K/uL Hgb 14.1 (14.0-18.0) g/dL Hct 50.9 (42-52) % Plt Count 134 (130-400) K/uL BMP 12/08/19 04:15 Sodium 139 Potassium 4.9 Chloride 95 L Carbon Dioxide 45 H* BUN 13 Creatinine 0.50 L Glucose 116 H Calcium 8.4 L Medications Administered Current Inpatient Medications Acetaminophen (Acetaminophen 1000 Mg/100 Ml Iv) 1,000 mg IV Q8H PRN PRN Reason: Pain or Fever Stop: 12/10/19 14:38 Albuterol (Albuterol 0.083% Nebu Soln 3 Ml Vial) 2.5 mg NEB Q6R PRN PRN Reason: Shortness Of Breath Or Wheezing Stop: 01/06/20 14:38 Sodium Chloride 225 sprays/Gentamicin Sulfate 60 mg/BARCODE IDENTIFIER 1 ea 0 sprays NA UD PRN PRN Reason: Dryness Stop: 01/06/20 16:27 Last Admin: 12/07/19 17:13 Dose: 2 spray Documented by: Ampicillin Sodium/Sulbactam Sodium 3,000 mg/ Sodium Chloride 108 mls @ 200 mls/hr IV Q6H [facility]; Protocol Stop: 12/17/19 03:33 Last Admin: 12/08/19 10:17 Dose: 200 mls/hr Documented by: Garrison (Remove Nicoderm Patch) 1 ea N/A DAILY@[id number] [facility] Stop: 01/07/20 08:58 Last Admin: 12/08/19 10:16 Dose: 1 ea Documented by: Garrison (Icu Protocol For Hyperglycemia) 1 ea N/A PRN PRN; Protocol PRN Reason: Hyperglycemia Protocol Stop: 12/09/19 14:38 Morphine Sulfate (Morphine Sulfate 2 Mg/Ml Carp) 2 mg IV Q15M PRN PRN Reason: Pain or Agitation Stop: 12/22/19 09:50 Nicotine (Nicotine 7 Mg/24 Hr Tdsy) 7 mg TD QAM [facility] Stop: 01/06/20 14:38 Last Admin: 12/08/19 10:16 Dose: 7 mg Documented by: Ondansetron HCl (Ondansetron Inj 2 Mg/Ml 2 Ml Vial) 4 mg IV Q6H PRN PRN Reason: Nausea Stop: 01/06/20 14:38 Last Admin: 12/07/19 16:23 Dose: 4 mg Documented by: Prednisone (Prednisone 5 Mg Tab) 5 mg PO BID [facility] Stop: 01/06/20 20:59 Last Admin: 12/07/19 20:09 Dose: 5 mg Documented by: Umeclidinium [place] (Umeclidinium [place] 62.5mcg/Blister 7 Puffs/Inhaler) 1 puffs INH QAM [facility] Stop: 01/06/20 14:38 Last Admin: 12/08/19 08:44 Dose: Not Given Documented by: (1) Extensive facial fractures Encounter type: initial encounter Fracture type: closed Qualified Code(s): S02.92XA - Unspecified fracture of facial bones, initial encounter for closed fracture
[2019-12-08] MEDS: ACETAMINOPHEN 1000 MG/100 ML IV IV PRN ×2 (10:59→17:40)
--- NOTE | 2019-12-08 19:26 | Electrocardiogram Report ---
Test Reason : Blood Pressure : / mmHG Vent. Rate : 095 BPM Atrial Rate : 095 BPM P-R Int : 152 ms QRS Dur : 090 ms QT Int : 352 ms P-R-T Axes : 077 081 067 degrees QTc Int : 442 ms Poor data quality, interpretation may be adversely affected Normal sinus rhythm with Premature atrial complexes Right atrial enlargement Borderline ECG When compared with ECG of 13-APR-2019 10:30, Premature atrial complexes are now Present Confirmed by Lazarus Frye ([id number]) on 12/08/2019 7:26:09 PM Referred By: REFERRED SELF Confirmed By:Lazarus Frye
[2019-12-09] MEDS: ACETAMINOPHEN 1000 MG/100 ML IV IV PRN ×2 (01:13→09:34)
[2019-12-09] MEDS: AMPICILLIN/SULBACTAM SOD 3,000 MG in 0.9 % SODIUM CHLORIDE 100 ML IV SCH ×3 (02:17→15:34)
[2019-12-09 07:03] LABS: Calcium 8.7 mg/dl (8.5-10.1); Creatinine Clr Calc Pharmacy 79.5 ml/min; Est GFR (African American) 104.3; Magnesium 2.3 mg/dl (1.8-2.4); Phosphorus 5.1 mg/dl (2.5-4.9); Potassium 5.7 mmol/L (3.5-5.1)
[2019-12-09 07:42] LABS: Hematocrit (blood only) 54.9 % (42-52); Hemoglobin 14.2 g/dL (14.0-18.0); Immature Granulocytes # (auto) 0.07 K/uL (0.00-0.02); Immature Granulocytes % (auto) 0.7 %; Lymphocytes # (auto) 0.92 K/uL (1.2-3.4); Lymphocytes % (auto) 9.6 %; Mean Corpuscular Hemoglobin 28.1 pg (25-34); Mean Corpuscular Hgb Conc 25.9 g/dL (32-36); Mean Corpuscular Volume 108.5 fL (80-100); Mean Platelet Volume 10.9 fL (7.4-10.4); Monocytes # (auto) 0.78 K/uL (0.11-0.59); Monocytes % (auto) 8.1 %; Neutrophils # (auto) 7.84 K/uL (1.4-6.5); Neutrophils % (auto) 81.6 %; Platelet Count 112 K/uL (130-400); RDW Coefficient of Variation 14.9 % (11.5-14.5); RDW Standard Deviation 59.5 fL (36.4-46.3); Red Blood Count 5.06 M/uL (4.7-6.1); White Blood Count 9.61 K/uL (4.8-10.8)
--- NOTE | 2019-12-09 08:04 | Critical Care Progress Note ---
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 Patient with extensive nonsurvivable injuries due to extensive facial fractures and known history of factor VIII deficiency. Patient being transitioned to comfort measures only, okay to be transitioned to floor status with palliative care. Discontinue intrusive measures. Neuro: - CAM ICU positive - GCS 3 - Patient sedated, nonresponsive to stimuli Cardiac/Vascular: - continue to monitor on telemetry while in ICU prior to transition to floor Respiratory: -We will remain on nasal cannula per mouth per family request GI/Nutrition: - NPO Renal/Lytes: - Discontinue monitoring to minimize intrusions for patient comfort ENDO: - No diabetic or thyroid disorder history HEME: - Hgb stable as compared to previous admissions - continue to monitor Lines/IV Access: - PIV x1 DVT Prophylaxis: - non-survivable injury with extensive fractures and known history of Factor VIII deficiency, chemoprophylaxis contraindicated at this time; per family's expressed desire to continue treatment options b/l knee high SCDs for mechanical prophylaxis CODE STATUS: DNR/DNI -comfort measures only (2) Extensive facial fractures: (3) Dependence on supplemental oxygen: (4) Factor VIII (functional) deficiency: (5) Fall: (6) Chronic hypoxemic respiratory failure: (7) Squamous cell carcinoma of larynx: (8) COPD (chronic obstructive pulmonary disease): Admission and Anticipated Discharge Date Admission Date: December 07, 2019 Supervising Physician Co-Signing Physician Notes Dr. Kong was resident physician during care of patient. I separately evaluated patient for gordillo portions of the history and the exam. I was present during the critical portion of medical decision making, and I discussed the case with the resident. I generally agree with the findings and plan. Family desires to continue current treatment. They are awaiting arrival of additional family members. Started the patient on fluids, again I believe the patient is in end-stage terminal condition without meaningful chance of recovery. He clearly did not want intubation under any circumstance, his facial fractures are nonoperable. He experienced hypercapnic respiratory failure, his clinical condition is worsening. He does not have definitive enteral access as he is not able to eat, his significant facial trauma precludes safe nasogastric tube placement. Continue current antibiotics. The patient certainly is critically ill however he does not require critical care interventions nor is escalation of care consistent with his previously expressed wishes. We have consulted palliative care and he is stable for downgrade out of the ICU. Subjective Discussions with family this morning, patient has mild opened eyes were responded to verbal stimulation from family. Overall has been asleep for the majority of his hospitalization, without change. Early in the morning family felt like he was still moving his left hand but this was nonpurposeful, questioned if he was responding to them squeezing his hand. Family desires continued efforts to make patient as comfortable as possible. Review of Systems Review of Systems: All systems reviewed & are unremarkable except as noted in Subjective Physical Exam Constitutional: WD/WN, vitals as above Eyes: Significant periorbital edema, limiting ability to visualize eyes bilaterally Neck: trachea midline, no thyromegaly Respiratory: normal respiratory effort, lungs clear to auscultation Cardiovascular: Rate/Rhythm: regular rhythm and + tachycardic Heart Sounds: no gallop, no murmur and no cardiac rub Vessels: normal peripheral pulses Gastrointestinal (Abdomen): normal bowel sounds, soft, nontender, no hepatosplenomegaly Musculoskeletal: Extremities: no cyanosis and no clubbing Unable to assess strength given patient's decreased responsiveness Skin: Trauma: + abrasion (b/l extensor surfaces of upper extremities), + laceration (repaired laceration over nasal bridge and L supraorbit) and + hematoma (doris-orbital with extension over nasal bridge and into b/l maxilla) Neurologic: Sedate, nonresponsive to voice, not withdrawing from pain, patient not posturing or having muscle rigidity, difficult to assess pupillary reflex as patient's periorbital edema makes it difficult to open eyes Psychiatric: Patient sedate, not responsive to verbal stimulation, not responsive to pain in all 4 extremities Lymphatic: no cervical lymphadenopathy Results & Data Results & Data ([facility]) Vital Signs (Past 12 Hours) Vital Signs Temp Pulse Resp BP Pulse Ox 12/09/19 06:06 122 H 22 122/62 96 12/09/19 05:06 122 H 14 111/62 95 12/09/19 04:06 121 H 23 123/64 95 12/09/19 03:37 36.7 C 12/09/19 03:06 118 H 23 114/64 93 12/09/19 03:00 118 H 22 93 12/09/19 02:06 119 H 22 123/67 93 12/09/19 02:01 118 H 21 94 12/09/19 01:08 119 H 21 95 12/09/19 01:06 119 H 26 H 116/64 95 12/09/19 00:06 119 H 20 128/68 96 12/09/19 00:01 120 H 21 96 12/09/19 00:00 36.6 C 12/08/19 23:32 117 H 12/08/19 23:06 117 H 21 128/68 96 12/08/19 23:00 116 H 20 97 12/08/19 22:06 117 H 20 133/73 96 12/08/19 22:00 119 H 19 96 12/08/19 21:06 113 H 29 H 114/58 L 92 12/08/19 21:00 112 H 22 93 12/08/19 20:12 36.4 C L 12/08/19 20:06 109 H 24 146/91 H 95 Laboratory Results 12/09/19 12/09/19 12/09/19 Range/Units 05:51 05:51 05:12 WBC 9.61 (4.8-10.8) K/uL RBC 5.06 (4.7-6.1) M/uL Hgb 14.2 (14.0-18.0) g/dL Hct 54.9 H (42-52) % MCV 108.5 H D (80-100) fL MCH 28.1 (25-34) pg MCHC 25.9 L (32-36) g/dL RDW Std Deviation 59.5 H (36.4-46.3) fL RDW Coeff of Lila 14.9 H (11.5-14.5) % Plt Count 112 L (130-400) K/uL MPV 10.9 H (7.4-10.4) fL Immature Gran % (Auto) 0.7 % Neut % (Auto) 81.6 % Lymph % (Auto) 9.6 % [place] % (Auto) 8.1 % Eos % (Auto) 0.0 % Baso % (Auto) 0.0 % Neut # (Auto) 7.84 H (1.4-6.5) K/uL Lymph # (Auto) 0.92 L (1.2-3.4) K/uL [place] # (Auto) 0.78 H (0.11-0.59) K/uL Eos # (Auto) 0.00 (0-0.5) K/uL Baso # (Auto) 0.00 (0-0.2) K/uL Immature Gran # (Auto) 0.07 H (0.00-0.02) K/uL Sodium 141 (136-145) mmol/L Potassium 5.7 H D (3.5-5.1) mmol/L Chloride 97 L (98-107) mmol/L Carbon Dioxide 41 H* (21-32) mmol/L Anion Gap 3.0 (3-11) BUN 32 H D (7-18) mg/dl Creatinine 0.77 (0.6-1.4) mg/dl Est Cr Clr Drug Dosing 79.5 ml/min Est GFR ( Amer) 104.3 Est GFR (Non-Af Amer) 90.0 BUN/Creatinine Ratio 42.0 H (10-20) Glucose 98 (70-99) mg/dl POC Glucose 98 (70-99) mg/dl Calcium 8.7 (8.5-10.1) mg/dl Phosphorus 5.1 H (2.5-4.9) mg/dl Magnesium 2.3 (1.8-2.4) mg/dl 12/08/19 Range/Units 23:16 WBC (4.8-10.8) K/uL RBC (4.7-6.1) M/uL Hgb (14.0-18.0) g/dL Hct (42-52) % MCV (80-100) fL MCH (25-34) pg MCHC (32-36) g/dL RDW Std Deviation (36.4-46.3) fL RDW Coeff of Lila (11.5-14.5) % Plt Count (130-400) K/uL MPV (7.4-10.4) fL Immature Gran % (Auto) % Neut % (Auto) % Lymph % (Auto) % [place] % (Auto) % Eos % (Auto) % Baso % (Auto) % Neut # (Auto) (1.4-6.5) K/uL Lymph # (Auto) (1.2-3.4) K/uL [place] # (Auto) (0.11-0.59) K/uL Eos # (Auto) (0-0.5) K/uL Baso # (Auto) (0-0.2) K/uL Immature Gran # (Auto) (0.00-0.02) K/uL Sodium (136-145) mmol/L Potassium (3.5-5.1) mmol/L Chloride (98-107) mmol/L Carbon Dioxide (21-32) mmol/L Anion Gap (3-11) BUN (7-18) mg/dl Creatinine (0.6-1.4) mg/dl Est Cr Clr Drug Dosing ml/min Est GFR ( Amer) Est GFR (Non-Af Amer) BUN/Creatinine Ratio (10-20) Glucose (70-99) mg/dl POC Glucose 137 H (70-99) mg/dl Calcium (8.5-10.1) mg/dl Phosphorus (2.5-4.9) mg/dl Magnesium (1.8-2.4) mg/dl Medications Administered Current Inpatient Medications Acetaminophen (Acetaminophen 1000 Mg/100 Ml Iv) 1,000 mg IV Q8H PRN PRN Reason: Pain or Fever Stop: 12/10/19 14:38 Last Admin: 12/09/19 09:34 Dose: 1,000 mg Documented by: Albuterol (Albuterol 0.083% Nebu Soln 3 Ml Vial) 2.5 mg NEB Q6R PRN PRN Reason: Shortness Of Breath Or Wheezing Stop: 01/06/20 14:38 Sodium Chloride 225 sprays/Gentamicin Sulfate 60 mg/BARCODE IDENTIFIER 1 ea 0 sprays NA UD PRN PRN Reason: Dryness Stop: 01/06/20 16:27 Last Admin: 12/07/19 17:13 Dose: 2 spray Documented by: Ampicillin Sodium/Sulbactam Sodium 3,000 mg/ Sodium Chloride 108 mls @ 200 mls/hr IV Q6H ADIEL; Protocol Stop: 12/17/19 03:33 Last Infusion: 12/09/19 10:05 Dose: Infused Documented by: Hydrocortisone Sodium (Succinate 25 mg/ Syringe) 0.5 mls @ 2 mls/min IV Q24H [facility] Stop: 01/08/20 11:29 Last Admin: 12/09/19 11:10 Dose: 2 mls/min Documented by: Parenteral Electrolytes (Normosol-R) 1,000 mls @ 100 mls/hr IV .Q10H ADIEL Stop: 01/08/20 10:44 Last Admin: 12/09/19 11:10 Dose: 100 mls/hr Documented by: Garrison (Remove Nicoderm Patch) 1 ea N/A DAILY@0859 [facility] Stop: 01/07/20 08:58 Last Admin: 12/09/19 09:33 Dose: 1 ea Documented by: Garrison (Icu Protocol For Hyperglycemia) 1 ea N/A PRN PRN; Protocol PRN Reason: Hyperglycemia Protocol Stop: 12/09/19 14:38 Morphine Sulfate (Morphine Sulfate 2 Mg/Ml Carp) 2 mg IV Q15M PRN PRN Reason: Pain or Agitation Stop: 12/22/19 09:50 Nicotine (Nicotine 7 Mg/24 Hr Tdsy) 7 mg TD QAM [facility] Stop: 01/06/20 14:38 Last Admin: 12/09/19 09:33 Dose: 7 mg Documented by: Ondansetron HCl (Ondansetron Inj 2 Mg/Ml 2 Ml Vial) 4 mg IV Q6H PRN PRN Reason: Nausea Stop: 01/06/20 14:38 Last Admin: 12/07/19 16:23 Dose: 4 mg Documented by: Prednisone (Prednisone 5 Mg Tab) 5 mg PO BID [facility] Stop: 01/06/20 20:59 Last Admin: 12/07/19 20:09 Dose: 5 mg Documented by: Umeclidinium [place] (Umeclidinium [place] 62.5mcg/Blister 7 Puffs/Inhaler) 1 puffs INH QAM [facility] Stop: 01/06/20 14:38 Last Admin: 12/09/19 09:15 Dose: Not Given Documented by: Resident Activity Tracking Resident Involvement: Resident Care Provided Care Provided: Adult Hospital Medicine (1) Extensive facial fractures Encounter type: initial encounter Fracture type: closed Qualified Code(s): S02.92XA - Unspecified fracture of facial bones, initial encounter for closed fracture (2) COPD (chronic obstructive pulmonary disease) COPD type: emphysema Emphysema type: other Qualified Code(s): J43.8 - Other emphysema
[2019-12-09] MEDS: UMECLIDINIUM BROMIDE 62.5MCG/BLISTER 7 PUFFS/INHALER INH SCH (09:15)
[2019-12-09] MEDS: NICOTINE 7 MG/24 HR TDSY TD SCH (09:33)
[2019-12-09 10:58] VITALS: TEMP 98.8
[2019-12-09] MEDS: NORMOSOL-R 1,000 ML IV SCH ×2 (11:10→20:44)
[2019-12-09] MEDS ORDERED: HYDROCORTISONE SOD 25 MG in SYRINGE 0 ML IV SCH (11:30)
--- NOTE | 2019-12-09 12:48 | Hospitalist Progress Note ---
Date of Service December 09, 2019 Assessment & Plan (1) Fall: (2) Extensive facial fractures: (3) Acute respiratory failure with hypercapnia: Acute on chronic hypercapneic respiratory failure Likely multifactorial etiology in setting of chronic respiratory failure 2/2 COPD, multiple facial fractures, a h/o SCC of the vocal cords with swelling. Facial fractures 2/2 mechanical fall at home. Cont Unasyn and supportive care per Dr. Doran [place] Patient is currently DNR Palliative consult for ongoing GOC NPO No BIPAP considering fractures Continue oxymask (4) Factor VIII (functional) deficiency: Follows with Dr Gan. Coags WNL (5) Chronic hypoxemic respiratory failure: On chronic 4L oxygen via NC. Baseline sats 89-92%. Follows with Dr Audrey Saldana supportive care as above. (6) Cardiomyopathy: Does not appear to be in exacerbation. (7) Squamous cell carcinoma of larynx: History vocal cords, squamous cell carcinoma s/p chemo, radiation which was completed in 03/2017 Follows with [facility] Otolaryngology Head and Neck Surgery - Dr Floyd (8) DVT prophylaxis: SCDs DNR/DNI Dispo-cont ICU support with oxygen supplementation and abx for now Admission and Anticipated Discharge Date Admission Date: December 07, 2019 Subjective Patient seen and examined Niece and niece's at bedside. Per chart review, patient mental status and respiratory status declined yesterday Has been on oxymask Was evaluated by Dr Doran and no surgical intervention recommended. This AM, patient is not arousable Sinus tachycardic on monitor, saturating 95-95% on oxymask 4l/min Review of Systems Review of Systems: Unobtainable due to reduced consciousness Physical Exam Constitutional: Unarousable. Maintaining airway Eyes: Periorbital ecchymoses ENMT: Facial swelling Respiratory: Auscultation: lungs clear to auscultation bilaterally; no crackles and no rales Oxymask 4l/min Cardiovascular: Rate/Rhythm: regular rhythm and + tachycardic S1 S2 Gastrointestinal (Abdomen): normal bowel sounds, soft, nontender, no hepatosplenomegaly Neurologic: Unarousable. No extremity movement to noxious stimuli Results & Data Results & Data ([facility]) Vital Signs (Past 12 Hours) Vital Signs Temp Pulse Resp BP Pulse Ox 12/09/19 12:06 37.1 C 122 H 27 H 126/65 96 12/09/19 11:06 122 H 24 130/71 95 12/09/19 10:06 123 H 35 H 121/68 95 12/09/19 09:06 122 H 41 H 125/65 95 12/09/19 08:06 37.1 C 123 H 48 H 124/69 95 12/09/19 08:00 121 H 12/09/19 07:06 122 H 43 H 123/68 96 12/09/19 06:06 122 H 22 122/62 96 12/09/19 05:06 122 H 14 111/62 95 12/09/19 04:06 121 H 23 123/64 95 12/09/19 03:37 36.7 C 12/09/19 03:06 118 H 23 114/64 93 12/09/19 03:00 118 H 22 93 12/09/19 02:06 119 H 22 123/67 93 12/09/19 02:01 118 H 21 94 12/09/19 01:08 119 H 21 95 12/09/19 01:06 119 H 26 H 116/64 95 Laboratory Results Laboratory Results - last 24 hr 12/08/19 12/09/19 12/09/19 23:16 05:12 05:51 WBC 9.61 RBC 5.06 Hgb 14.2 Hct 54.9 H MCV 108.5 H D MCH 28.1 MCHC 25.9 L RDW Std Deviation 59.5 H RDW Coeff of Lila 14.9 H Plt Count 112 L MPV 10.9 H Immature Gran % (Auto) 0.7 Neut % (Auto) 81.6 Lymph % (Auto) 9.6 [place] % (Auto) 8.1 Eos % (Auto) 0.0 Baso % (Auto) 0.0 Neut # (Auto) 7.84 H Lymph # (Auto) 0.92 L [place] # (Auto) 0.78 H Eos # (Auto) 0.00 Baso # (Auto) 0.00 Immature Gran # (Auto) 0.07 H Sodium Potassium Chloride Carbon Dioxide Anion Gap BUN Creatinine Est Cr Clr Drug Dosing Est GFR ( Amer) Est GFR (Non-Af Amer) BUN/Creatinine Ratio Glucose POC Glucose 137 H 98 Calcium Phosphorus Magnesium 12/09/19 05:51 WBC RBC Hgb Hct MCV MCH MCHC RDW Std Deviation RDW Coeff of Lila Plt Count MPV Immature Gran % (Auto) Neut % (Auto) Lymph % (Auto) [place] % (Auto) Eos % (Auto) Baso % (Auto) Neut # (Auto) Lymph # (Auto) [place] # (Auto) Eos # (Auto) Baso # (Auto) Immature Gran # (Auto) Sodium 141 Potassium 5.7 H D Chloride 97 L Carbon Dioxide 41 H* Anion Gap 3.0 BUN 32 H D Creatinine 0.77 Est Cr Clr Drug Dosing 79.5 Est GFR ( Amer) 104.3 Est GFR (Non-Af Amer) 90.0 BUN/Creatinine Ratio 42.0 H Glucose 98 POC Glucose Calcium 8.7 Phosphorus 5.1 H Magnesium 2.3 (1) Extensive facial fractures Encounter type: initial encounter Fracture type: closed Qualified Code(s): S02.92XA - Unspecified fracture of facial bones, initial encounter for closed fracture
--- NOTE | 2019-12-09 14:06 | Billing Data ---
Date of Service November Coding Level of Care Code 87274 Inpt Consult Level 5
--- NOTE | 2019-12-09 14:07 | Billing Data ---
Date of Service December 08, 2019 Coding Level of Care Code Critical Care 1st 30-74 mins Time Spent (min) 40 Comment I have personally spent 40 minutes of critical care time in the direct management of this patient. This is a life/limb threatening event. This includes time spent evaluating patient, direct bedside care, chart review, placing orders, interpretation of diagnostic studies, discussion with consultants, patient, and/or family members regarding treatment decisions, as well as other required patient management activities. This time is exclusive of all separately billable procedures, and teaching time and separate from and in addition to any other critical care service time.
--- NOTE | 2019-12-09 14:10 | Billing Data ---
Date of Service December 09, 2019 Coding Level of Care Code 99890 Subseq Hosp Care Lvl 3
[2019-12-09] MEDS ORDERED: ATROPINE SULFATE 1% OP SOLN 5 ML BTL SL PRN (14:41)
[2019-12-09] MEDS ORDERED: MoRPHine SULF/NSS 250 MG/250 ML BTL IV PRN (14:41)
[2019-12-09] MEDS ORDERED: LORazepam 0.25 MG/0.5 ML VIAL IV PRN (14:41)
--- NOTE | 2019-12-09 14:43 | Palliative Care Consultation ---
Date of Consultation December 09, 2019 Assessment & Plan (1) Goals of care, counseling/discussion: This is an unfortunate 74 year old male who presented to the [facility] ED yesterday after sustaining a mechanical fall from standing height onto tile alfredo. Unfortunately, he has an extensive PMH that includes COPD (wears 4 LNC at home at baseline), squamous cell carcinoma of the larynx s/p chemo and radx (last round in 2017), and Factor VIII deficiency. Multiple orbital and nonsurvivable injuries were noted. He was evaluated by Dr. Doran and no surgical intervention was recommended due to the risk vs benefit. Today, the patients mental status and respiratory status acutely declined despite being on oxymask. It appears that his airway/vocal cords were swelling. Palliative Care was consulted to discuss goals of care with the family. -Initially I received a call from the leather case finisher indicating that the patients family had some questions regarding the patients status and did not quite understand the extent of his injuries. -I had a phone call discussion with the patients hospitalist who supported that his condition had acutely changed and was now tachycardic and tachypnic, using accessory muscles. I did discuss this at length with the patients on the telephone as well. Her daughters were at the bedside and all were in full agreement to transition this patient to full comfort measures. -I presented to see the patient and placed comfort care orders -He was lying in his hospital bed, head tilted backwards, using accessory muscles to breathe, with some audible secretions. -He had an oxymask on (6L) with SPO2 93%. -We discussed again his current condition and I discussed utilizing a Morphine drip to relieve some air hunger. All family was in agreement to stop all non essential medications, including abx and IV fluids and focus fully on comfort meds only. -I ordered a Morphine drip, which was started at 1mg/hour. Order reads for max of 10 mg/hour and to notify the provider if any changes occur. I also ordered Atropine gtts, Robinul, and Ativan. -Likely the patient has life expectancy of hours to a day or so. -Palliative will continue to follow and support the family. I did set the expectation that the patient likely will be moved due to ICU census and bed availability. Family aware. They have called anyone who would want to say goodbye and multiple family members have visited. -PPS: 10% (2) Acute respiratory failure with hypercapnia: (3) Extensive facial fractures: Encounter type: initial encounter Fracture type: closed Ortiz lified Code(s): S02.92XA - Unspecified fracture of facial bones, initial encounter for closed fracture (4) Chronic hypoxemic respiratory failure: (5) Acute exacerbation of chronic obstructive airways disease: (6) Squamous cell carcinoma of larynx: History of Present Illness Reason for Consultation: Goals of care Requesting Physician: Dr. Longoria Attending Physician: Josefina Longoria MD History of Present Illness This is an unfortunate 74 year old male who presented to the [facility] ED yesterday after sustaining a mechanical fall from standing height onto tile alfredo. U nfortunately, he has an extensive PMH that includes COPD (wears 4 LNC at home at baseline), squamous cell carcinoma of the larynx s/p chemo and radx (last round in 2017), and Factor VIII deficiency. Multiple orbital and nonsurvivable injuries were noted. He was evaluated by Dr. Doran and no surgical intervention was recommended due to the risk vs benefit. Today, the patients mental status and respiratory status acutely declined despite being on oxymask. It appears that his airway/vocal cords were swelling. Palliative Care was consulted to discuss goals of care with the family. Please see A/P for further details. Thank you for involving palliative care with this patient. Allergies Allergy/AdvReac Type Severity Reaction Status Date / Time No Known Drug Allergies Allergy Verified 12/07/19 10:04 Home Medications Home Medications Medication Instructions Recorded Confirmed Type albuterol sulfate 90 mcg/actuation 2 puffs INHALATION Q4H PRN #1 gm 11/20/18 12/07/19 History aerosol inhaler fluticasone 500 mcg-salmeterol 50 1 puffs INHALATION BID #1 ea 11/20/18 12/07/19 History mcg/dose blistr powdr for inhalation Mucinex 1,200 mg PO BID 04/11/19 12/07/19 History tiotropium bromide 18 mcg capsule 1 cap INHALATION QAM #30 puffs 10/15/19 12/07/19 Rx with inhalation device prednisone 5 mg tablet 5 mg PO BID #180 tab 10/29/19 12/07/19 Rx albuterol sulfate 2.5 mg INH Q4H PRN 12/07/19 12/07/19 History ibandronate 150 mg PO MO 12/07/19 12/07/19 History Patient History Medical History Acquired hemophilia Factor VIII deficiency Cholesteatoma Chronic hypoxemic respiratory failure Factor VIII (functional) deficiency Glucose intolerance Pneumonia Squamous cell carcinoma of larynx Supraventricular tachycardia Tobacco use Surgical History Hx of colonoscopy S/P T&A (status post tonsillectomy and adenoidectomy) Family History Other Coronary heart disease Stroke Social History Smoking Status: Current every day smoker Cigarettes Per Day: 2 to 3 a day; Second Hand Exposure: No; Do You Dip or Chew Tobacco: No; Tobacco Cessation Education Requested by Patient: Yes Hx Alcohol Use: No Hx Substance Use: No Preferred Language: Hungarian Communication Ability: Unable Edging Supervisor Required: No Beliefs That Will Affect Care: None marital status: Current Living Situation: Spouse current occupational status: retired Feels Safe at Home: Yes Safety Concerns: Feels Safe At This Time Review of Systems Review of Systems: Unobtainable due to reduced consciousness Physical Exam Physical Exam: Total time spent 125 minutes with > 50% of that time spent assessing the patient, discussing goals of care, providing symptom management and collaborating with the family and IDT. Constitutional: + ill appearing and + frail appearing Respiratory: + labored breathing, + uses accessory muscles and + tachypneic Cardiovascular: Rate/Rhythm: + tachycardic Extremities: + edema Gastrointestinal (Abdomen): normal bowel sounds, soft, nontender, no hepatosplenomegaly Psychiatric: A+Ox3, euthymic affect Orientation: + not alert Genitourinary: indwelling morgan catheter. Results & Data ([facility]) Vital Signs (Past 12 Hours) Vital Signs Temp Pulse Resp BP Pulse Ox 12/09/19 12:06 37.1 C 122 H 27 H 126/65 96 12/09/19 11:06 122 H 24 130/71 95 12/09/19 10:06 123 H 35 H 121/68 95 12/09/19 09:06 122 H 41 H 125/65 95 12/09/19 08:06 37.1 C 123 H 48 H 124/69 95 12/09/19 08:00 121 H 12/09/19 07:06 122 H 43 H 123/68 96 12/09/19 06:06 122 H 22 122/62 96 12/09/19 05:06 122 H 14 111/62 95 12/09/19 04:06 121 H 23 123/64 95 12/09/19 03:37 36.7 C 12/09/19 03:06 118 H 23 114/64 93 12/09/19 03:00 118 H 22 93 PG Care Time/CCT Total # of Minutes Spent Total Time Spent with Patient: Total time spent is greater than 50% in coordination of care (as documented) at patient's floor/unit and/or counseling patient: 125 Coding Level of Care Code 71288 Inpt Consult Level 5 Diagnoses Goals of care, counseling/discussion Z71.89 Acute respiratory failure with hypercapnia J96.02 Extensive facial fractures S02.92XA Encounter type: initial encounter Fracture type: closed Chronic hypoxemic respiratory failure J96.11 Acute exacerbation of chronic obstructive airways disease J44.1 Squamous cell carcinoma of larynx C32.9 Time Spent (min) 125
[2019-12-09 17:03] VITALS: O2SAT 95
[2019-12-09] MEDS ORDERED: GLYCOPYRROLATE 0.2 MG/ML VIAL IV PRN (17:34)
[2019-12-09] MEDS ORDERED: ATROPINE SULFATE 1% OP SOLN 2 ML BTL SL PRN (17:34)
[2019-12-09] MEDS ORDERED: LORazepam 0.5 MG/1 ML VIAL IV PRN (17:34)
[2019-12-09] MEDS ORDERED: LORazepam 0.5 MG TAB PO PRN (17:34)
[2019-12-09] MEDS ORDERED: ONDANSETRON 4 MG OD TAB SL PRN (17:34)
[2019-12-09] MEDS ORDERED: ONDANSETRON INJ 2 MG/ML 2 ML VIAL IV PRN (17:34)
[2019-12-09] MEDS ORDERED: SODIUM CHLORIDE 0.9% 250 ML IV SCH (21:30)
[2019-12-10 05:37] VITALS: BP 135/79; PULSE 114
--- NOTE | 2019-12-10 07:21 | Death Pronouncement Note ---
Date of Service December 09, 2019 Pronouncement Note Admission Date Admission Date: December 07, 2019 Date and Time of Date of : 12/09/19 Time of : 23:00 Contributing Factors (1) Goals of care, counseling/discussion: (2) Acute respiratory failure with hypercapnia: (3) Extensive facial fractures: (4) Chronic hypoxemic respiratory failure: (5) Acute exacerbation of chronic obstructive airways disease: (6) Squamous cell carcinoma of larynx: Additional Data Confirmation of : no pulse, no respirations, no heart sounds and pupils fixed and dilated Family: at bedside Attending physician: Josefina Longoria MD
--- NOTE | 2019-12-10 16:56 | Discharge Summary ---
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 Pt states he tripped in his slippers as he was getting ready this morning and fell forward hitting his face. Denies any LOC. Denies any dizziness, CP, SOB prior to fall. C/O headache and facial pain. Reports had some bleeding from nose and mouth. Pt states feels his breathing is at his baseline. Denies loss of vision, blurry vision, diplopia. Did have some nausea in ER. C/O abrasions to bilateral arms and discomfort over those abrasions. Also c/o stiffness of bilateral index fingers however reports fully able to move fingers and arms without difficulty or increased pain. Denies any other known injury. Denies fever/chills, diaphoresis, diarrhea, constipation, dizziness, syncope, neck pain, orthopnea, palpitations, cough, sore throat, choking, otalgia, abdominal pain, paresthesias, extremity weakness, extremity edema, rashes, urinary symptoms. Has been isolating at home during the pandemic, reports only going out for Dr appointments. Ramirez in 2017 according to outpatient records. In ER pt found to have extensive maxillofacial fractures. Pt was evaluated by maxillofacial surgery - Dr Doran who recommends no surgical intervention at this time and close clinical follow up. He reports will recheck pt this afternoon. In ER pt noted to drop to 75% on his chronic 4L oxygen via NC, as pt has significant edema to his nose. He was placed on oxymask at 12L with O2 sats up to 98%. His BMP with CO2: 41, AG of 1.0. Obtained ABG after pt titrated to 8L via oxymask. Pt further titrated down to 4L oxymask prior to ABG results. ABG:pH: 7.3, pCO2: 86, pO2: 125, HCO3: 43 Admission Exam Per Admitting Provider General: no distress, WDWN Head: normocephalic Eyes: PERRL, EOM's intact, conjunctiva non-injected, anicteric FACE: +ecchymosis and edema bilateral eyes, +ecchymosis and edema external nose; +edema to maxillofacial region, +repaired laceration to bridge of nose, +repaired laceration to left forehead, no active epistaxis, +old blood noted mouth and posterior pharynx, has dentures, able to open and close jaw Neck: supple, trachea midline, non-tender, ROM intact Lungs: clear, no respiratory distress on oxymask at 4L, no wheezing/rhonchi/rales CV: RRR, no murmur, no pretibial edema Abd: normal BS, soft, non-tender Ext: Pt able to move bilateral shoulders, elbows, wrists and all digits, Able to actively flex and extend hips, knees, ankles; + abrasions to bilateral arms, +dressings to bilateral arms with reported skin tears that were reapproximated in ER Neuro: A&O x 3, no focal deficits noted, normal affect Skin: warm, dry, skin lacerations and abrasions as above in face and extremities. Principal Diagnosis Acute on chronic hypercapneic respiratory failure Extensive facial fractures Fall Discharge Data Allergies Allergy/AdvReac Type Severity Reaction Status Date / Time No Known Drug Allergies Allergy Verified 12/07/19 10:04 Consultations 12/07/19 09:56 Consult Oromaxillofacial Surgery Stat 12/07/19 10:24 ED Decision to Admit Stat 12/07/19 14:39 Consult Case Management - Discharge Planning Routine Consult Protocol Manager Routine Consult Oromaxillofacial Surgery Routine 12/09/19 10:23 Consult Palliative Care Routine 12/09/19 17:34 Consult Case Management - Discharge Planning Routine Consult Palliative Care Routine Ordered Studies 12/07/19 07:39 CT cervical spine wo con Stat FINDINGS: Skeletal structures: The skeletal structures are osteopenic. There is no evidence of fracture or subluxation involving the cervical spine. Vertebral body height is maintained. There is minimal anterolisthesis at C2-C3 and C3-C4. Minimal retrolisthesis is noted at C4-C5. There is straightening of the cervical lordosis with reversal centered at C4. Anterior osteophytes are seen throughout. The odontoid process and lateral masses are intact. The atlantoaxial articulation is preserved noting productive degenerative change. The spinous processes appear intact. Intervertebral discs: Advanced disc space narrowing is seen at all levels between C4-C5 and C6-C7. Moderate disc space narrowing seen at C3-C4. Central canal: Posterior disc osteophyte complexes from C4-C5 through C6-C7 likely contribute to multilevel acquired compromise of the central canal. Soft tissues: The prevertebral and paraspinous soft tissues are within normal limits. Secretions are again seen within the pharynx. There is atherosclerotic calcification of the carotid bulbs. There is asymmetric fullness of the right laryngeal soft tissues, best seen on axial image #38 of 53. Calvarium: The visualized calvarium at the skull base appears intact. Brain parenchyma: Partially visualized brain parenchyma the skull base is within normal limits. Mastoids: There are bilateral mastoid effusions. Comminuted pterygoid plate fractures are partially imaged. A 7 mm nodular structure is again seen in the right middle ear on image #27. Lung apices: Emphysematous change is noted in the upper lobes. IMPRESSION: 1. There is no evidence of fracture or subluxation involving the cervical spine. No change from today's earlier examination. 2. Osteopenia and spondylotic change as above. 3. Bilateral pterygoid plate fractures are partially imaged. 4. Additional findings as above. CT facial bones wo con Stat ADDENDUM Addendum: In addition to the fractures mentioned, there is a subtle fracture involving the posterior wall of the right frontal sinus. There is no associated pneumocephalus. Electronically signed by: Segundo Murdock M.D. 12/07/2019 12:[address] facial bones wo con CT DOSE: 1773.10 mGy.cm CLINICAL HISTORY: Facial pain status post trauma COMPARISON STUDY: No previous studies for comparison. TECHNIQUE: Helical images were acquired in the transverse plane. The study was reviewed and analyzed on the independent 3-D workstation. A dose lowering technique was utilized adhering to the principles of ALARA. There are bilateral pterygoid plate fractures. The zygomatic arches appear intact. Both globes appear intact. There are bilateral orbital floor fractures. There are fractures of the anterior and posterior lateral maxillary beavers bilaterally. There are bilateral nasal fractures. There is a fracture the nasal bridge communicating with the frontal sinus. No mandibular condylar fractures are visualized. There are advanced arthritic changes within the TMJs bilaterally. Note is made of supraglottic edema, possibly secondary to prior radiation therapy. There is a left frontal scalp hematoma IMPRESSION: 1. LeFort II fracture with bilateral pterygoid plate fractures, bilateral orbital floor fractures, and fractures involving the anterior and posterior lateral beavers of both maxillary sinuses. There are also bilateral nasal fractures as well as a fracture involving the nasal bridge communicating with the frontal sinus. 2. Diffuse supraglottic edema, possibly secondary to prior radiation therapy. CT head/brain wo con Stat FINDINGS: No acute intracranial hemorrhage, midline shift or mass effect is present. The ventricular system is unremarkable. The basilar cisterns are patent. No extra-axial collections are present. There are no findings to suggest acute dural sinus thrombosis or acute territorial infarct. There is no calvarial fracture. Left mastoid air cells are partially opacified. Facial contusion is noted. Numerous bilateral acute facial bone fractures are better depicted on the facial bone CT. IMPRESSION: 1. No acute intracranial findings. 2. No calvarial fracture. 3. Multiple facial fractures, better depicted on the facial bone CT. Please see that report for further description. 12/07/19 12:41 CT cervical spine wo con Stat 12/07/19 14:39 CT head/brain wo con Urgent 12/08/19 05:21 CT head/brain wo con Urgent FINDINGS: No intra or extra-axial mass lesions are visualized. There is no CT evidence of acute cortical infarction. There is no evidence of midline shift. There is no ac glynn hemorrhage. There are patchy white matter hypodensities likely on a small vessel basis. There is no evidence of pathologic ventricular dilatation. There are fractures of both maxillary sinuses, nasal bones, and frontal sinus. There is fluid present within the maxillary sinuses and frontal sinus. There is facial soft tissue swelling. IMPRESSION: 1. Multiple facial fractures 2. No acute intracranial findings Hospital Course (1) Goals of care, counseling/discussion: (2) Acute respiratory failure with hypercapnia: Acute on chronic hypercapneic respiratory failure Likely multifactorial etiology in setting of chronic respiratory failure 2/2 COPD, multiple facial fractures, a h/o SCC of the vocal cords with swelling. Facial fractures 2/2 mechanical fall at home. Patient was worked for trauma Had multiple scans showing multiple facial fractures Evaluated by surgeon and surgery not indicated. Was initially started on unasyn iv Patient had acute on chronic hypercapniec respiratory failure Patient had indicated he does now want any intubation or tracheostomy After goals of care with family, patient was started on comfort care measures per Family's wish Patient was pronounced at 11pm on 12/09/19 (3) Extensive facial fractures: (4) Chronic hypoxemic respiratory failure: (5) Acute exacerbation of chronic obstructive airways disease: (6) Squamous cell carcinoma of larynx: Total Time Total Time Spent Total Time Spent (In Minutes): 20 Total Time Includes: Other (Completing discharge summary and filling up certification part of certificate) Discharge Plan Discharge Items Reason For Visit: FACIAL FRACTURES,CHRONIC HYPOXEMIC RESP FAILURE Follow-up/Referrals: Delta España MD [Primary Care Provider] - Medications and DC Order Prescriptions: No Action tiotropium bromide 18 mcg capsule, w/inhalation device 1 cap inhalation QAM Qty: 30 RF: 11 fluticasone propion-salmeterol 500-50 mcg/dose blister with device 1 puffs inhalation BID Qty: 1 RF: 0 albuterol sulfate 90 mcg/actuation HFA aerosol inhaler 2 puffs inhalation Q4H PRN (Reason: Shortness Of Breath) Qty: 1 RF: 0 prednisone 5 mg tablet 5 mg PO BID Qty: 180 RF: 3 albuterol sulfate 2.5 mg /3 mL (0.083 %) solution for nebulization 2.5 mg INH Q4H PRN (Reason: shortness of breath or wheezing) RF: 0 ibandronate 150 mg tablet 150 mg PO MO RF: 0 Mucinex 1,200 mg Tablet Extended Release 12hr 1,200 mg PO BID RF: 0 Admission Data Admit Date/Time: 12/07/19 12:29 Attending Provider: Josefina Longoria I. Admit Provider: Sawyer Leonardo Primary Care Provider: Delta España Other Providers: Jeff Doran ; Rhonda Bush ; Gabby Walters ; Glen Abel Other Interventions: Discharge Summary Assessment (RN) Last Done: 12/10/19 05:36
== END 2019-12-09 23:45 | disposition expired | DRG 157 ==
LOC: ED 07:00 → SUATTDRO 12:29 → 1E 12:29 → 3W 12-09 17:13